=== PATIENT | female | born 1970 | race Caucasian/White ===

== ENCOUNTER → 2016-06-30 | Outpatient (CLI) | payer BC, OTHER ==
--- NOTE | 2016-06-30 15:23 | CT ---
CT of the abdomen and pelvis with contrast. HISTORY: Incisional hernia TECHNIQUE: Axial CT images were obtained of the abdomen and pelvis following administration of 85 mL of Isovue-370 in the right antecubital fossa without complication. Coronal and sagittal reconstruct ions obtained. FINDINGS: The lung bases are clear, no pleural effusion. Mild dependent atelectasis. There is no evident irena meter nodule within the right breast, comparable to a mammogram dated 01/08/2016. The liver demonstrates focal fatty infiltration near the gallbladder fossa and falciform ligament. T here is a tiny cyst also noted. The spleen, adrenal glands, and pancreas appear normal. Cholelithias is without evidence of cholecystitis. No bulky retroperitoneal lymphadenopathy or abdominal ascites. The kidneys enhance and function symmetrically without evidence of obstructive uropathy. The large and small bowel are normal in caliber without evidence of obstruction. No focal pericoloni c inflammation or stranding. Appendectomy. No bulky pelvic lymphadenopathy or free pelvic fluid. The urinary bladder appears normal. Mesh is noted along the anterior wall. Just above the mesh there is a tiny midline fat-containing supraumbilical hernia. No suspicious osseous abnormalities identified. IMPRESSION: 1. Cholelithiasis without evidence of cholecystitis. 2. Mesh is noted from previous hernia repair, however just superior to the mesh there is a tiny fat- containing midline hernia.
--- NOTE | 2016-07-01 14:34 | CR ---
EXAM DATE: 06/30/16 PATIENT'S AGE: 46 Patient: YI VIKTORIA Facility: [place], [place] Site . Site : [id number] Study: XRay Extremity foot [id number] 4:59:14 PM Ordering Physician: Citlaly Fall Final Report: Indication: Fall with pain Technique: Three views left foot Comparison: None Findings: Bones: Alignment is normal. No fractures or bone lesions. Small posterior and inferior calcaneal enthesophytes noted. Joint spaces: Unremarkable. Soft tissues: Unremarkable. Impression: No acute abnormality. Dictated by Yi Maurer MD @ Jun 30 2016 11:14PM (Electronic Signature) Report Signed by Proxy and Original Signed Document filed in the Medical Record. QUE
== END | disposition home or self-care (01) ==
LOC: MW.DI 12:17
PROVIDERS: ATTEND Surgery
DX: K43.2 Incisional hernia without obstruction or gangrene (principal); E55.9 Vitamin D deficiency, unspecified; M79.672 Pain in left foot; K80.20 Calculus of gallbladder without cholecystitis without obstruction; I10 Essential (primary) hypertension; E11.9 Type 2 diabetes mellitus without complications
CPT/HCPCS: 36415; 73630; 74177; 80053; 82150; 82652; 83036; Q9967

== ENCOUNTER → 2016-07-09 | Outpatient (CLI) | payer BC, OTHER | LOC: MW.MNT 15:48 | PROVIDERS: ATTEND Internal Medicine | DX: E11.9 Type 2 diabetes mellitus without complications (principal); Z71.3 Dietary counseling and surveillance | CPT/HCPCS: 97803 ==

== ENCOUNTER → 2016-08-11 | Outpatient (CLI) | payer BC, OTHER ==
--- NOTE | 2016-08-11 16:24 | CR ---
EXAMINATION: Right total HISTORY: Fracture COMPARISON: 07/09/2016 TECHNIQUE: 2 views FINDINGS/IMPRESSION: There is a stable nondisplaced intra-articular fracture noted along the radial and palmar aspect of the distal first phalanx. The remaining osseous structures and joint spaces lizzette ear intact.
== END ==
LOC: MW.CHORTHO 07:09
PROVIDERS: ATTEND Orthopaedic Surgery
DX: S62.521A Displaced fracture of distal phalanx of right thumb, initial encounter for closed fracture (principal); S62.524A Nondisplaced fracture of distal phalanx of right thumb, initial encounter for closed fracture
CPT/HCPCS: 73140-26-F5; 73140-F5; 97802

== ENCOUNTER 2016-09-09 06:52 | Day surgery (SDC) | payer BC, OTHER ==
[2016-09-09] MEDS ORDERED: Bupivacaine 0.25%/EPINEPHrine 1:200,000 10 ML SDV ONE (07:12)
[2016-09-09] MEDS ORDERED: Propofol 200 MG/20 ML SDV ONE (07:19)
[2016-09-09] MEDS ORDERED: fentaNYL 100 MCG/2 ML SDV ONE ×2 (07:19→09:29)
[2016-09-09] MEDS ORDERED: Midazolam 1 MG/ML 2 ML SDV ONE (07:19)
--- NOTE | 2016-09-09 07:33 | PCM.PREANE ---
Preanesthetic Assessment - Anesthesia/Transfusion/Family Hx Anesthesia History: Prior Anesthesia Without Reaction Type of Anesthesia Reaction: Anesthesia Awareness (woke up twice during hysterectomy) Family History of Anesthesia Reaction: No Transfusion History: No Prior Transfusion(s) Intubation History: Unknown - Review of Systems General: No Symptoms Pulmonary: No Symptoms Cardiovascular: No Symptoms Gastrointestinal: No symptoms Neurological: No Symptoms Other: Reports: None - Physical Assessment Height: 1.63 m Weight: 115.666 kg ASA Class: 3 Mental Status: Alert & Oriented x3 Airway Class: Mallampati = 3 Dentition: Reports: Normal Dentition Thyro-Mental Finger Breadths: 2 Mouth Opening Finger Breadths: 2 ROM/Head Extension: Limited/Partial Lungs: Clear to auscultation, Normal respiratory effort Cardiovascular: Regular Rate, Regular Rhythm - Allergies Allergies/Adverse Reactions: Allergies Allergy/AdvReac Type Severity Reaction Status Date / Time erythromycin base Allergy Vomiting Verified 07/17/15 23:30 Penicillins Allergy Difficulty Verified 07/17/15 23:30 Breathing - Blood Blood Available: No - Anesthesia Plan Pre-Op Medication Ordered: None - Acknowledgements Anesthesia Type Planned: MAC Pt an Appropriate Candidate for the Planned Anesthesia: Yes Alternatives and Risks of Anesthesia Discussed w Pt/Guardian: Yes Pt/Guardian Understands and Agrees with Anesthesia Plan: Yes PreAnesthesia Questionnaire HEENT History: Reports: Allergic Rhinitis, Other (See Below) Other HEENT History: wears glasses/contacts Cardiovascular History: Reports: High Cholesterol, Hypertension Respiratory History: Reports: Sleep Apnea Other Respiratory History: uses CPAP, SOB on exertion Gastrointestinal History: Reports: GERD Genitourinary History: Reports: Renal Calculus Musculoskeletal History: Reports: Back Pain, Chronic, Fracture, Osteoarthritis Other Musculoskeletal History: fx thumb Neurological History: Reports: None Psychiatric History: Reports: Anxiety, Depression Endocrine/Metabolic History: Reports: Diabetes, Type II, Hypothyroidism, Obesity /BMI 30+ Oncologic (Cancer) History: Reports: Other (See Below) Other Oncologic History: "skin cancer" Dermatologic History: Reports: None - Past Surgical History Head Surgeries/Procedures: Reports: None HEENT Surgical History: Reports: Tonsillectomy GI Surgical History: Reports: Appendectomy, Hernia, Abdominal Other GI Surgeries/Procedures: hernia repair x6 Female Surgical History: Reports: Hysterectomy, Tubal Ligation Endocrine Surgical History: Reports: Thyroidectomy Dermatological Surgical History: Reports: Skin Biopsy - SUBSTANCE USE Smoking Status *Q: Current Every Day Smoker Tobacco Use Within Last Twelve Months: Cigarettes Recreational Drug Use History: No - HOME MEDS Home Medications: Home Meds metFORMIN HCl [Metformin HCl ER] 1 tab PO BID 07/17/15 [History] Albuterol Sulfate [Proair Hfa] 2 puff INH ASDIRECTED PRN 09/04/16 [History] Alendronate Sodium [Fosamax] 70 mg PO WEEKLY 09/04/16 [History] Dulaglutide [Trulicity] 1.5 mg SUBCUT WEEKLY 09/04/16 [History] Escitalopram Oxalate 10 mg PO DAILY 09/04/16 [History] Fluticasone/Salmeterol [Advair 250-50 Diskus] 1 puff INH BID 09/04/16 [History] Insulin Aspart [NovoLOG] 1 injection SUBCUT ASDIRECTED 09/04/16 [History] Insulin Glargine,Hum.Rec.Anlog [Toujeo Solostar] 60 units SUBCUT BEDTIME [History] Levothyroxine Sodium [Synthroid] 75 mg PO DAILY 09/04/16 [History] Meloxicam 7.5 mg PO DAILY 09/04/16 [History] Omeprazole 20 mg PO DAILY 09/04/16 [History] Pregabalin [Lyrica] 100 mg PO TID 09/04/16 [History] Valsartan 40 mg PO DAILY 09/04/16 [History] atorvaSTATin Calcium [Atorvastatin Calcium] 20 mg PO DAILY 09/04/16 [History] - CURRENT (IN HOUSE) MEDS Current Meds: Current Medications Hydrocodone Bitart/Acetaminophen (Sublette 325-5 Mg) 1 tab PO Q4H PRN PRN Reason: Pain Bupivacaine HCl/Epinephrine Bitart (Marcaine 0.25%/Epinephrine 1:200,000) 10 ml INJECT ONETIME ONE Stop: 09/09/16 08:01 Clindamycin Phosphate 600 mg/ (Premix) 50 mls @ 150 mls/hr IV ONETIME ONE Stop: 09/09/16 08:19 Lactated Ringer's (Ringers, Lactated) 1,000 mls @ 125 mls/hr IV ASDIRECTED SABA Discontinued Medications Bupivacaine HCl/Epinephrine Bitart (Marcaine 0.25%/Epinephrine 1:200,000) Confirm Administered Dose 10 ml .ROUTE .STK-MED ONE Stop: 09/09/16 07:13 Fentanyl (Sublimaze) Confirm Administered Dose 100 mcg .ROUTE .STK-MED ONE Stop: 09/09/16 07:20 Midazolam HCl (Versed 1 Mg/Ml) Confirm Administered Dose 2 mg .ROUTE .STK-MED ONE Stop: 09/09/16 07:20 Propofol (Diprivan 20 Ml) Confirm Administered Dose 200 mg .ROUTE .STK-MED ONE Stop: 09/09/16 07:20
[2016-09-09] MEDS ORDERED: Clindamycin Phosphate in D5W 600 MG in Premix Bag 1 BAG IV ONE ×2 (08:00)
[2016-09-09] MEDS ORDERED: Lactated Ringers 1,000 ML IV SCH (08:00)
[2016-09-09] MEDS ORDERED: Bupivacaine 0.25%/EPINEPHrine 1:200,000 10 ML SDV INJECT ONE (08:00)
[2016-09-09] MEDS ORDERED: Acetaminophen/HYDROcodone 325-5 MG Tab PO PRN (08:00)
--- NOTE | 2016-09-09 08:50 | PCM.OPNOTE ---
- General Post-Op/Procedure Note Date of Surgery/Procedure: 09/09/16 Operative Procedure(s): right carpal tunnel release Pre Op Diagnosis: right carpal tunnel syndrome Post-Op Diagnosis: Same Anesthesia Technique: Local, MAC Primary Surgeon: Padmini Zarco [employer]: Yi Garcia Complications: None Condition: Good
[2016-09-09] MEDS: fentaNYL 100 MCG/2 ML SDV IVPUSH PRN ×2 (09:30→09:38)
[2016-09-09 14:34] VITALS: BP 133/79
--- NOTE | 2016-09-09 18:26 | OR ---
SURGEON: HEATHER FONG MD DATE OF PROCEDURE: 09/09/2016 PREOPERATIVE DIAGNOSIS: Right carpal tunnel syndrome. POSTOPERATIVE DIAGNOSIS: Right carpal tunnel syndrome. PROCEDURE: Right carpal tunnel release. INDICATIONS: Ms. Garcia is a 46-year-old female seen today for right carpal tunnel syndrome. Risks and benefits of release were discussed with her and she was in agreement to proceed. Risks were including, but not limited to, bleeding, infection, damage to underlying or overlying structures, possible need for future interventions and possible scarring. PROCEDURE IN DETAIL: After informed consent was obtained and placed on the chart, the patient was brought to the operating theater and laid in supine. After adequate local MAC anesthetic was obtained, the area was prepped and draped and a time-out was completed to confirm side and site. Once adequately prepped and draped, the arm was anesthetized with local anesthetic and the arm was exsanguinated and the tourniquet was insufflated to 200 mmHg. Attention was then paid to dissection over the transverse carpal ligament using a 15 blade through the skin and subcutaneous tissues and then once the ligament was breached, dissection distally and proximally under direct visualization using a Littler scissors and tendon retraction. Once adequately released, meticulous hemostasis was ensured and the area copiously irrigated. The skin was then closed using a 5-0 nylon stitch in a horizontal mattress fashion. Once adequately closed, the wound was dressed with Xeroform, fluffs, and a Kerlix gauze dressing and a 2-inch COLLEEN wrap. The patient tolerated this and all counts of needles were correct at the end the case. FOLLOWUP INSTRUCTIONS: The patient will see us in 2 weeks and was given a prescription for pain control. She will call sooner with any problems, questions, or concerns. HEGGTZAN / NOMI /[id number]
== END 2016-09-09 10:15 | disposition home or self-care (01) ==
LOC: MW.SDS 06:52
PROVIDERS: ATTEND Plastic Surgery
PROC: 01N50ZZ Release Median Nerve, Open Approach (ICD-10-PCS; principal; 2016-09-09)
DX: G56.01 Carpal tunnel syndrome, right upper limb (principal); F41.9 Anxiety disorder, unspecified; M51.36 Other intervertebral disc degeneration, lumbar region; F32.9 Major depressive disorder, single episode, unspecified; E11.42 Type 2 diabetes mellitus with diabetic polyneuropathy; E78.5 Hyperlipidemia, unspecified; K21.9 Gastro-esophageal reflux disease without esophagitis; I10 Essential (primary) hypertension; E67.3 Hypervitaminosis D; M19.90 Unspecified osteoarthritis, unspecified site; M17.11 Unilateral primary osteoarthritis, right knee; G47.30 Sleep apnea, unspecified; E55.9 Vitamin D deficiency, unspecified; E89.0 Postprocedural hypothyroidism; F17.210 Nicotine dependence, cigarettes, uncomplicated; E78.00 Pure hypercholesterolemia, unspecified; E66.9 Obesity, unspecified; Z85.828 Personal history of other malignant neoplasm of skin; Z87.442 Personal history of urinary calculi; Z88.0 Allergy status to penicillin; Z88.5 Allergy status to narcotic agent; Z79.4 Long term (current) use of insulin; Z79.84 Long term (current) use of oral hypoglycemic drugs; Z79.899 Other long term (current) drug therapy; Z98.51 Tubal ligation status; Z90.49 Acquired absence of other specified parts of digestive tract; Z90.710 Acquired absence of both cervix and uterus; Z90.89 Acquired absence of other organs; Z98.890 Other specified postprocedural states; Z68.41 Body mass index [BMI] 40.0-44.9, adult; Z99.89 Dependence on other enabling machines and devices
CPT/HCPCS: 64721; 82962; A9270; J2250; J3010; J7120; 01810; J2704

== ENCOUNTER 2016-12-15 10:34 | Observation (INO) | payer OTHER ==
[2016-12-15] MEDS ORDERED: Ondansetron 4 MG/2 ML SDV IVPUSH ONE (11:01)
[2016-12-15] MEDS ORDERED: Sodium Chloride 0.9% 1,000 ML IV ONE (11:01)
[2016-12-15] MEDS ORDERED: fentaNYL 100 MCG/2 ML SDV IVPUSH ONE (11:01)
--- NOTE | 2016-12-15 11:07 | EDM.PDOC ---
<Esteban Prieto - Last Filed: 12/15/16 13:30> ED HPI GENERAL MEDICAL PROBLEM - General Chief Complaint: Abdominal Pain Stated Complaint: GALLBLADDER Time Seen by Provider: 12/15/16 11:00 Source of Information: Reports: Patient. Denies: RN Notes Reviewed History Limitations: Reports: No Limitations - History of Present Illness INITIAL COMMENTS - FREE TEXT/NARRATIVE: History of present illness: 46-year-old female comes in complaining of right upper quadrant pain. Patient has known gallstones and subsequent gallbladder pain has been evaluated by Dr. Olivo with planned follow-up but now indicates that the pain is intractable as well as repeated nausea and vomiting of bilious material. Review of systems: As per history of present illness and below otherwise all systems reviewed and negative. Past medical history: As per history of present illness and as reviewed below otherwise noncontributory. Surgical history: As per history of present illness and as reviewed below otherwise noncontributory. Social history: No reported history of drug or alcohol abuse. Family history: As per history of present illness and as reviewed below otherwise noncontributory. Physical exam: HEENT: Atraumatic, normocephalic, pupils reactive, negative for conjunctival pallor or scleral icterus, mucous membranes moist, throat clear, neck supple, nontender, trachea midline. Lungs: Clear to auscultation, breath sounds equal bilaterally, chest nontender. Heart: S1S2, regular, negative for clicks, rubs, or JVD. Abdomen: Obese protuberant exquisitely tender abdomen most specifically in the right upper quadrant but radiating across the entire upper region. Negative for masses or hepatosplenomegaly. Negative for costovertebral tenderness. Pelvis: Stable nontender. Genitourinary: Deferred. Rectal: Deferred. Extremities: Atraumatic, negative for cords or calf pain. Neurovascular unremarkable. Neuro: Awake, alert, oriented. Cranial nerves II through XII unremarkable. Cerebellum unremarkable. Motor and sensory unremarkable throughout. Exam nonfocal. Dr. Jewell consultanted in regards to this patient who is known to the surgical staff. Dr. Martinez indicated she would come in and evaluate patient but desired medicine to also follow secondary to her diabetes. Spoke with Dr. Dennis about admitting patient and referred any further questions to Dr. Jewell. Diagnostics: [CBC, CMP, amylase, lipase, ultrasound of the gallbladder] Therapeutics: [] Impression: [Abdominal pain] Plan: [Admit to OBS to medicine with consult by surgery] Definitive disposition and diagnosis as appropriate pending reevaluation and review of above. Right Middle Abdomen Pain Score (Numeric/FACES): 7 - Related Data Allergies Allergy/AdvReac Type Severity Reaction Status Date / Time erythromycin base Allergy Vomiting Verified 07/17/15 23:30 Penicillins Allergy Difficulty Verified 07/17/15 23:30 Breathing Home Meds: Home Meds metFORMIN HCl [Metformin HCl ER] 1 tab PO BID 07/17/15 [History] Albuterol Sulfate [Proair Hfa] 2 puff INH ASDIRECTED PRN 09/04/16 [History] Dulaglutide [Trulicity] 1.5 mg SUBCUT WEEKLY 09/04/16 [History] Fluticasone/Salmeterol [Advair 250-50 Diskus] 1 puff INH BID 09/04/16 [History] Insulin Aspart [NovoLOG] 1 injection SUBCUT ASDIRECTED 09/04/16 [History] Levothyroxine Sodium [Synthroid] 75 mg PO DAILY 09/04/16 [History] Omeprazole 20 mg PO DAILY 09/04/16 [History] Valsartan 40 mg PO DAILY 09/04/16 [History] atorvaSTATin Calcium [Atorvastatin Calcium] 20 mg PO DAILY 09/04/16 [History] Sucralfate [Carafate] 1 tab PO QID 12/15/16 [History] Past Medical History HEENT History: Reports: Allergic Rhinitis, Other (See Below) Other HEENT History: wears glasses/contacts Cardiovascular History: Reports: High Cholesterol, Hypertension Respiratory History: Reports: Sleep Apnea Other Respiratory History: uses CPAP, SOB on exertion Gastrointestinal History: Reports: GERD Genitourinary History: Reports: Renal Calculus Musculoskeletal History: Reports: Back Pain, Chronic, Fracture, Osteoarthritis Other Musculoskeletal History: fx thumb Neurological History: Reports: None Psychiatric History: Reports: Anxiety, Depression Endocrine/Metabolic History: Reports: Diabetes, Type II, Hypothyroidism, Obesity /BMI 30+ Oncologic (Cancer) History: Reports: Other (See Below) Other Oncologic History: "skin cancer" Dermatologic History: Reports: None - Past Surgical History Head Surgeries/Procedures: Reports: None HEENT Surgical History: Reports: Tonsillectomy GI Surgical History: Reports: Appendectomy, Hernia, Abdominal Other GI Surgeries/Procedures: hernia repair x6 Female Surgical History: Reports: Hysterectomy, Tubal Ligation Endocrine Surgical History: Reports: Thyroidectomy Dermatological Surgical History: Reports: Skin Biopsy Social & Family History - Tobacco Use Smoking Status *Q: Current Every Day Smoker Years of Tobacco use: 30 Packs/Tins Daily: 1 - Recreational Drug Use Recreational Drug Use: No ED ROS GENERAL - Review of Systems Review Of Systems: See Below (History of present illness) ED EXAM, GI/ABD - Physical Exam Exam: See Below (See history of present illness) Course - Vital Signs Last Recorded V/S: Last Vital Signs Temp 36.4 C 12/15/16 14:50 Pulse 72 12/15/16 14:50 Resp 18 12/15/16 14:50 BP 105/62 12/15/16 14:50 Pulse Ox 92 L 12/15/16 14:50 - Orders/Labs/Meds Orders: Active Orders 24 hr Category Date Time Status Patient Status [ADT] Stat ADT 12/15/16 13:29 Active Notify Provider Consults [RC] ASDIRECTED Care 12/15/16 12:53 Active Consult to Physician [CONS] Stat Cons 12/15/16 12:52 Active Medication Orders Albuterol (Ventolin Hfa) 0 gm INH Q6H PRN PRN Reason: Shortness of Breath Enoxaparin Sodium (Lovenox) 40 mg SUBCUT DAILY SABA Hydromorphone HCl (Dilaudid) 1 mg IVPUSH Q2H PRN PRN Reason: Pain Last Admin: 12/15/16 15:10 Dose: 1 mg Levofloxacin/Dextrose 750 mg/ (Premix) 150 mls @ 100 mls/hr IV Q24H SABA Metronidazole 500 mg/ Premix 100 mls @ 100 mls/hr IV QID SABA Last Admin: 12/15/16 14:41 Dose: 100 mls/hr Sodium Chloride (Normal Saline) 1,000 mls @ 125 mls/hr IV ASDIRECTED SABA Last Admin: 12/15/16 14:41 Dose: 125 mls/hr Pantoprazole Sodium 40 mg/ (Sodium Chloride) 10 mls @ 300 mls/hr IVPUSH Q24H SABA Last Admin: 12/15/16 14:59 Dose: 300 mls/hr Insulin Aspart (Novolog) 0 unit SUBCUT Q6H SABA PRN Reason: Protocol Ondansetron HCl (Zofran) 4 mg IVPUSH Q4H PRN PRN Reason: Nausea Last Admin: 12/15/16 15:09 Dose: 4 mg Fluticasone/Salmeterol (Advair Diskus 250-50) 1 puff INH BID SABA Labs: Laboratory Tests 12/15/16 12/15/16 12/15/16 Range/Units 11:24 11:24 11:24 WBC 16.22 H (4.0-11.0) K/uL RBC 4.77 (4.30-5.90) M/uL Hgb 15.0 (12.0-16.0) g/dL Hct 43.8 (36.0-46.0) % MCV 91.8 (80.0-98.0) fL MCH 31.4 (27.0-32.0) pg MCHC 34.2 (31.0-37.0) g/dL RDW Std Deviation 47.0 (28.0-62.0) fl RDW Coeff of Sheryl 14 (11.0-15.0) % Plt Count 252 (150-400) K/uL MPV 10.40 (7.40-12.00) fL Neut % (Auto) 67.0 (48.0-80.0) % Lymph % (Auto) 25.3 (16.0-40.0) % [place] % (Auto) 6.7 (0.0-15.0) % Eos % (Auto) 0.8 (0.0-7.0) % Baso % (Auto) 0.2 (0.0-1.5) % Neut # (Auto) 10.9 H (1.4-5.7) K/uL Lymph # (Auto) 4.1 H (0.6-2.4) K/uL [place] # (Auto) 1.1 H (0.0-0.8) K/uL Eos # (Auto) 0.1 (0.0-0.7) K/uL Baso # (Auto) 0.0 (0.0-0.1) K/uL Nucleated RBC % 0.0 /100WBC Nucleated RBCs # 0 K/uL Sodium 137 (136-146) mmol/L Potassium 4.0 (3.5-5.1) mmol/L Chloride 102 (98-110) mmol/L Carbon Dioxide 24 (21-31) mmol/L BUN 12 (6.0-23.0) mg/dL Creatinine 0.8 (0.6-1.5) mg/dL Est Cr Clr Drug Dosing 74.26 mL/min Estimated GFR (MDRD) > 60.0 ml/min Glucose 117 H (60-110) mg/dL Calcium 10.0 (8.8-10.8) mg/dL Total Bilirubin 0.4 (0.1-1.5) mg/dL AST 28 (5-40) IU/L ALT 40 (8-54) IU/L Alkaline Phosphatase 129 (40-150) Total Protein 7.9 (6.0-8.0) g/dL Albumin 3.7 (3.5-5.0) g/dL Globulin 4.2 H (2.0-3.5) g/dL Albumin/Globulin Ratio 0.9 L (1.3-2.8) Amylase 28 (10-90) U/L Lipase 21 (7-80) U/L Meds: Medications Generic Name Dose Route Start Last Admin Trade Name Freq PRN Reason Stop Dose Admin Albuterol 0 gm 12/15/16 13:57 Ventolin Hfa INH Q6H PRN Shortness of Breath Enoxaparin Sodium 40 mg 12/16/16 09:00 Lovenox SUBCUT DAILY SABA Hydromorphone HCl 1 mg 12/15/16 14:55 12/15/16 15:10 Dilaudid IVPUSH 1 mg Q2H PRN Administration Pain Levofloxacin/Dextrose 750 mg/ 150 mls @ 100 mls/hr 12/15/16 15:00 Premix IV Q24H SABA Metronidazole 500 mg/ Premix 100 mls @ 100 mls/hr 12/15/16 14:00 12/15/16 14: 41 IV 100 mls/hr QID SABA Administration Sodium Chloride 1,000 mls @ 125 mls/hr 12/15/16 14:00 12/15/16 14:41 Normal Saline IV 125 mls/hr ASDIRECTED SABA Administration Pantoprazole Sodium 40 mg/ 10 mls @ 300 mls/hr 12/15/16 14:00 12/15/16 14:59 Sodium Chloride IVPUSH 300 mls/hr Q24H SABA Administration Insulin Aspart 0 unit 12/15/16 18:00 Novolog SUBCUT Q6H SABA Protocol Ondansetron HCl 4 mg 12/15/16 13:48 12/15/16 15:09 Zofran IVPUSH 4 mg Q4H PRN Administration Nausea Fluticasone/Salmeterol 1 puff 12/15/16 21:00 Advair Diskus 250-50 INH BID SABA Discontinued Medications Generic Name Dose Route Start Last Admin Trade Name Freq PRN Reason Stop Dose Admin Fentanyl 50 mcg 12/15/16 11:01 12/15/16 11:24 Sublimaze IVPUSH 12/15/16 11:02 50 mcg ONETIME ONE Administration Fentanyl Confirm 12/15/16 11:58 Sublimaze Administered 12/15/16 11:59 Dose 100 mcg .ROUTE .STK-MED ONE Sodium Chloride 1,000 mls @ 999 mls/hr 12/15/16 11:01 12/15/16 11:31 Normal Saline IV 12/15/16 12:01 999 mls/hr STAT ONE Administration Ondansetron HCl 8 mg 12/15/16 11:01 12/15/16 11:35 Zofran IVPUSH 12/15/16 11:02 8 mg ONETIME ONE Administration Departure - Departure Time of Disposition: 13:31 Disposition: Refer to Observation Condition: Good Clinical Impression: Biliary colic - Discharge Information <Ayse Wood - Last Filed: 12/15/16 15:25> ED HPI GENERAL MEDICAL PROBLEM - History of Present Illness INITIAL COMMENTS - FREE TEXT/NARRATIVE: Please note that Dr. Jewell was initially consulted and after review of the patient's information she felt the patient should be admitted with her on consult but that medicine she did admit Dr. Dennis agreed to do so.
[2016-12-15] MEDS ORDERED: fentaNYL 100 MCG/2 ML SDV IVPUSH STA (11:55)
[2016-12-15] MEDS ORDERED: fentaNYL 100 MCG/2 ML SDV ONE (11:58)
[2016-12-15 11:59] LABS: CHLORIDE,CL 102 mmol/L (98-110); SODIUM,NA 137 mmol/L (136-146)
--- NOTE | 2016-12-15 12:41 | US ---
EXAMINATION: Right upper quadrant ultrasound HISTORY: Gallbladder disease COMPARISON: CT dated 12/04/2016 TECHNIQUE: Grayscale and color Doppler images obtained of the right upper quadrant. FINDINGS: The visualized pancreas is normal. The liver is moderately increased in generalized echotex ture without a focal hepatic mass. Numerous mobile gallstones noted within the gallbladder. No gallbl adder wall thickening. No notable pericholecystic fluid. Sonographic Wilson sign is reported positive . The common bile duct measures 6 mm. The right kidney measures 12.2 cm [id number] without evidenc e of hydronephrosis. IMPRESSION: 1. Cholelithiasis with a positive sonographic Wilson's sign without secondary signs of cholecystitis. Correlate clinically. 2. Moderate fatty infiltration of the liver.
[2016-12-15] MEDS ORDERED: Albuterol 8 GM Inhaler INH PRN (13:57)
--- NOTE | 2016-12-15 13:59 | PCM.HP ---
H&P History of Present Illness - General Date of Service: 12/15/16 Source of Information: Patient History Limitations: Reports: No Limitations - History of Present Illness Initial Comments - Free Text/Narative: This 46 year old female with pmh of DM type 2, tobacco use, obesity, multiple abdominal surgeries presented to the ED today with concerns of intractable N/V and RUQ pain. She reports the beginning of November starting have this N/V and "bubbling up in her throat." The RUQ pain started a couple days later, but wasn' t severe. She was seen in the clinic on November 13 with Zabrina Valdes for this, given Carafate and scheduled for US of RUQ. She reports having RUQ pain, that is dull and slowly intensifies. She denies radiation, no chest pain or palpitations.She reports subjective chills at home, but unknown if she had any fevers. No black or bloody BMS, no diarrhea. She has a BM normally every week. She has been followed by Dr. Cramer for cholelithiasis. SHe has extensive history of abdominal surgeries starting with REINALDO in her 20s, She reports after that she had incisional hernia repairs and had a total of 6 major abdominal surgeries in 5-6 months with mesh placement. She then had a ruptured appendix which caused extensive infection with her mesh and they had to remove it. In the ED leukocytosis noted 16,220, glucose 117, AST 28, ALT 40, Alk phos 129, and bilirubin 0.4. US of RUQ revealed cholelithiases with a positive marquez's sign without secondary signs of cholecystitis, moderate fatty infiltration of the liver. She will be admitted for observation for RUQ pain, intractable N/V. I spoke with Dr. Jewell who is on-call for general surgery. She has spoken with ED prior to admission and spoke with Dr. Cramer regarding this patient. She is very complex in nature due to comorbidities including obesity and multiple abdominal surgeries. She will follow along case. PCP. Dr. Jacinto. Right Middle Abdomen Pain Score (Numeric/FACES): 7 - Related Data Allergies/Adverse Reactions: Allergies Allergy/AdvReac Type Severity Reaction Status Date / Time erythromycin base Allergy Vomiting Verified 07/17/15 23:30 Penicillins Allergy Difficulty Verified 07/17/15 23:30 Breathing Home Medications: Home Meds metFORMIN HCl [Metformin HCl ER] 1 tab PO BID 07/17/15 [History] Albuterol Sulfate [Proair Hfa] 2 puff INH ASDIRECTED PRN 09/04/16 [History] Dulaglutide [Trulicity] 1.5 mg SUBCUT WEEKLY 09/04/16 [History] Fluticasone/Salmeterol [Advair 250-50 Diskus] 1 puff INH BID 09/04/16 [History] Insulin Aspart [NovoLOG] 1 injection SUBCUT ASDIRECTED 09/04/16 [History] Levothyroxine Sodium [Synthroid] 75 mg PO DAILY 09/04/16 [History] Omeprazole 20 mg PO DAILY 09/04/16 [History] Valsartan 40 mg PO DAILY 09/04/16 [History] atorvaSTATin Calcium [Atorvastatin Calcium] 20 mg PO DAILY 09/04/16 [History] Sucralfate [Carafate] 1 tab PO QID 12/15/16 [History] Past Medical History HEENT History: Reports: Allergic Rhinitis, Other (See Below) Other HEENT History: wears glasses/contacts Cardiovascular History: Reports: High Cholesterol, Hypertension. Denies: Afib, Blood Clots/VTE/DVT, Heart Failure, Stents Respiratory History: Reports: Sleep Apnea. Denies: Asthma, COPD Other Respiratory History: uses CPAP, SOB on exertion Gastrointestinal History: Reports: Chronic Constipation, GERD. 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 Denies: CVA, Migraines, TIA Psychiatric History: Reports: Anxiety, Depression Endocrine/Metabolic History: Reports: Diabetes, Type II, Hypothyroidism, Obesity /BMI 30+ Oncologic (Cancer) History: Reports: Other (See Below) Other Oncologic History: "skin cancer" Dermatologic History: Reports: None - Infectious Disease History Infectious Disease History: Reports: Chicken Pox - Past Surgical History Head Surgeries/Procedures: Reports: None HEENT Surgical History: Reports: Tonsillectomy GI Surgical History: Reports: Appendectomy (ruptured, mesh was removed and replaced), Hernia, Abdominal (x6 with mesh) Other GI Surgeries/Procedures: hernia repair x6 Female Surgical History: Reports: Hysterectomy, Tubal Ligation Endocrine Surgical History: Reports: Thyroidectomy (1 yr ago.) Dermatological Surgical History: Reports: Skin Biopsy Social & Family History - Family History Family Medical History: Noncontributory - Tobacco Use Smoking Status *Q: Current Every Day Smoker Years of Tobacco use: 30 Packs/Tins Daily: 0.5 Second Hand Smoke Exposure: No - Caffeine Use Caffeine Use: Reports: Coffee - Alcohol Use Alcohol Use Frequency: Socially - Recreational Drug Use Recreational Drug Use: No - Living Situation & Occupation Living situation: Reports: Occupation: Employed H&P Review of Systems - Review of Systems: Review Of Systems: See Below General: Reports: Chills, Fatigue (unable to sleep well for the last couple weeks due to heartburn and nausea). Denies: Fever HEENT: Reports: No Symptoms. Denies: Headaches, Sinus Congestion Pulmonary: Reports: No Symptoms. Denies: Shortness of Breath, Wheezing, Cough, Sputum Cardiovascular: Reports: No Symptoms. Denies: Chest Pain, Palpitations, Edema Gastrointestinal: Reports: Abdominal Pain (RUQ no radiation), Flatus, Nausea, Vomiting. Denies: Black Stool, Bloody Stool, Hematemesis, Melena Genitourinary: Reports: No Symptoms. Denies: Dysuria, Frequency, Burning, Pain , Flank Pain Musculoskeletal: Reports: No Symptoms. Denies: Neck Pain Skin: Reports: No Symptoms Psychiatric: Reports: Anxiety Neurological: Reports: No Symptoms Hematologic/Lymphatic: Reports: No Symptoms Immunologic: Reports: No Symptoms Exam - Exam Exam: See Below - Vital Signs Vital Signs: Last Vital Signs Temp 97.2 F 12/15/16 10:49 Pulse 78 12/15/16 10:49 Resp 20 12/15/16 10:49 BP 168/88 H 12/15/16 10:49 Pulse Ox 94 L 12/15/16 10:49 Weight: 114 kg - Exam General: Alert, Oriented, Cooperative, Other HEENT: Conjunctiva Clear, Mucosa Moist & [place], Pupils Reactive Neck: Supple, Trachea Midline, Other (obese neck) Lungs: Clear to Auscultation, Normal Respiratory Effort Cardiovascular: Regular Rate, Regular Rhythm, Normal S1, Normal S2. No: Irregular Rhythm, Systolic Murmur GI/Abdominal Exam: Normal Bowel Sounds, Soft, No Distention, Tender (RUQ and epigastric region), Other (obese abdomen with multiple scars from past surgeries ) Extremities: Normal Inspection, Normal Range of Motion, Non-Tender, No Pedal Edema, Normal Capillary Refill Neuro Extensive - Mental Status: Alert, Oriented x3, Normal Mood/Affect, Normal Cognition Neuro Extensive - Motor, Sensory, Reflexes: CN II-XII Intact, Normal Gait, Normal Reflexes Psychiatric: Alert, Normal Affect, Normal Mood - Patient Data Result Diagrams: 12/15/16 11:24 12/15/16 11:24 *Q Meaningful Use (ADM) - VTE *Q VTE Criteria *Q: - VTE Risk Assess *Q Each Risk Factor Represents 1 Point: Age 41 - 59 years Total Score 1 Point Risk Factors: 1 Each Risk Factor Represents 2 Points: Morbid Obesity (BMI Greater than 40) Total Score 2 Point Risk Factors: 2 Each Risk Factor Represents 3 Points: None Total Score 3 Point Risk Factors: 0 Each Risk Factor Represents 5 Points: None Total Score 5 Point Risk Factors: 0 Venous Thromboembolism Risk Factor Score *Q: 3 - Stroke *Q Stroke Criteria *Q: - AMI *Q AMI Criteria *Q: - Problem List (1) Intractable nausea and vomiting SNOMED Code(s): 689665531, 711881576 ICD Code: R11.2 - NAUSEA WITH VOMITING, UNSPECIFIED Status: Acute Current Visit: Yes Qualifiers: Vomiting type: unspecified Qualified Code(s): R11.2 - Nausea with vomiting , unspecified (2) Biliary colic SNOMED Code(s): 04910143 ICD Code: K80.50 - CALCULUS OF BILE DUCT W/O CHOLANGITIS OR CHOLECYST W/O OBST Status: Acute Current Visit: Yes (3) Dehydration SNOMED Code(s): 19752166 ICD Code: E86.0 - DEHYDRATION Status: Acute Current Visit: Yes (4) Cholelithiasis SNOMED Code(s): 519647438 ICD Code: K80.20 - CALCULUS OF GALLBLADDER W/O CHOLECYSTITIS W/O OBSTRUCTION Status: Acute Current Visit: Yes Qualifiers: Cholelithiasis location: gallbladder Cholecystitis presence: without cholecystitis Biliary obstruction: without biliary obstruction Qualified Code(s): K80.20 - Calculus of gallbladder without cholecystitis without obstruction (5) Obesity, morbid, BMI 40.0-49.9 SNOMED Code(s): 021997538, 741624787 ICD Code: E66.01 - MORBID (SEVERE) OBESITY DUE TO EXCESS CALORIES Status: Chronic Current Visit: Yes (6) HTN (hypertension) SNOMED Code(s): 57852169 ICD Code: I10 - ESSENTIAL (PRIMARY) HYPERTENSION Status: Chronic Current Visit: Yes Qualifiers: Hypertension type: essential hypertension Qualified Code(s): I10 - Essential (primary) hypertension (7) DM type 2 (diabetes mellitus, type 2) SNOMED Code(s): 01968384 ICD Code: E11.9 - TYPE 2 DIABETES MELLITUS WITHOUT COMPLICATIONS Status: Chronic Current Visit: Yes Qualifiers: 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 complication status: with unspecified complications 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 head greenskeeper insulin use: with head greenskeeper use Qualified Code(s) : E11.8 - Type 2 diabetes mellitus with unspecified complications; 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 (8) Hx of thyroidectomy SNOMED Code(s): 098995849, 052760702 ICD Code: E89.0 - POSTPROCEDURAL HYPOTHYROIDISM Status: Chronic Current Visit: Yes Problem List Initiated/Reviewed/Updated: Yes Orders Last 24hrs: Active Orders 24 hr Category Date Time Status Blood Glucose Check, Bedside [RC] Q6H Care 12/15/16 13:48 Ordered Intake and Output [RC] QSHIFT Care 12/15/16 13:49 Ordered Oxygen Therapy [RC] PRN Care 12/15/16 13:49 Ordered Up With Assistance [RC] ASDIRECTED Care 12/15/16 13:48 Ordered VTE/DVT Education [RC] PER UNIT ROUTINE Care 12/15/16 13:49 Ordered Vital Signs [RC] Q4H Care 12/15/16 13:49 Ordered Nothing Per Oral Diet [DIET] Diet 12/15/16 Dinner Ordered CBC WITH AUTO DIFF [HEME] AM Lab 12/16/16 05:11 Ordered COMPREHENSIVE METABOLIC PN,CMP [CHEM] AM Lab 12/16/16 05:11 Ordered Albuterol [Proventil HFA] Med 12/15/16 13:57 Ordered 2 puff INH ASDIRECTED PRN Enoxaparin [Lovenox] Med 12/16/16 09:00 Ordered 40 mg SUBCUT DAILY Fluticasone/Salmeterol [Advair Diskus 250-50] Med 12/15/16 21:00 Ordered 1 puff INH BID Insulin Aspart [NovoLOG] Med 12/15/16 18:00 Ordered See Protocol SUBCUT Q6H Levofloxacin/Dextrose 5%-Water [Levaquin in D5W 750 MG/ Med 12/15/16 14:00 Ordered 150 ML] 750 mg Premix Bag 1 bag IV Q24H Ondansetron [Zofran] Med 12/15/16 13:48 Ordered 4 mg IVPUSH Q4H PRN Pantoprazole [ProTONIX IV] 40 mg Med 12/15/16 14:00 Ordered Sodium Chloride 0.9% [Normal Saline] 10 ml IVPUSH Q24H Sodium Chloride 0.9% @ 125 MLS/HR (1000ml) Med 12/15/16 14:00 Ordered Sodium Chloride 0.9% [Normal Saline] 1,000 ml IV ASDIRECTED metroNIDAZOLE/Normal Saline [Flagyl 500 MG in NS 100 ML Med 12/15/16 14:00 Ordered ] 500 mg Premix Bag 1 bag IV QID Resuscitation Status Routine Resus Stat 12/15/16 13:48 Ordered Medication Orders Enoxaparin Sodium (Lovenox) 40 mg SUBCUT DAILY SABA Levofloxacin/Dextrose 750 mg/ (Premix) 150 mls @ 100 mls/hr IV Q24H SABA Metronidazole 500 mg/ Premix 100 mls @ 100 mls/hr IV QID SABA Sodium Chloride (Normal Saline) 1,000 mls @ 125 mls/hr IV ASDIRECTED SABA Insulin Aspart (Novolog) 0 unit SUBCUT Q6H SABA PRN Reason: Protocol Ondansetron HCl (Zofran) 4 mg IVPUSH Q4H PRN PRN Reason: Nausea Assessment/Plan Comment:: This 46 year old female admitted with biliary colic, cholelithiasis and intractable N/V 1. Biliary colic/cholelithiasis: No cholecystitis noted. Dr. Jewell consulted. Will keep NPO, give IVFs, provide analgesia and anti-emetic medications PRN tonight. Monitor, if no improvement may need transfer to facility who is better able to manage complexity of care and removal of gallbladder. 2. DM type 2: Novolog SSI Q6 hrs while NPO, will monitor. 3. HTN: Continue home medications as tolerated. VTE porphylaxis: Lovenox. Dispo: 1-2 days
[2016-12-15] MEDS ORDERED: metroNIDAZOLE/Normal Saline 500 MG in Premix Bag 1 BAG IV SCH (14:00)
[2016-12-15] MEDS: Sodium Chloride 0.9% 1,000 ML IV SCH (14:41)
[2016-12-15] MEDS: Pantoprazole 40 MG in Sodium Chloride 0.9% 10 ML IVPUSH SCH (14:59)
[2016-12-15] MEDS ORDERED: Levofloxacin/Dextrose 5%-Water 750 MG in Premix Bag 1 BAG IV SCH ×2 (15:00→17:00)
[2016-12-15] MEDS: Ondansetron 4 MG/2 ML SDV IVPUSH PRN ×2 (15:09→20:54)
[2016-12-15] MEDS: HYDROmorphone 1 MG/ML Syringe IVPUSH PRN ×4 (15:10→23:43)
--- NOTE | 2016-12-15 17:29 | PCM.CONS ---
H&P History of Present Illness - General Date of Service: 12/15/16 Admit Problem/Dx: Symptomatic cholelithiasis Source of Information: Patient History Limitations: Reports: No Limitations - History of Present Illness Initial Comments - Free Text/Narative: Patient is a 46 year old female who presents with 4 days of RUQ pain, nausea and vomiting. She has a complex surgical history. She had an open REINALDO through a lower midline incision. This was complicated by a surgical dehisence/infection and incisional hernia formation. She had "6" hernia surgeries with mesh to repair this hernia. Her last one was ~17 years ago. She had an open appendectomy in 2008 complicated by a surgical infection which required healing by secondary intention. She has diabetes, smokes, and is morbidly obese. She was evaluated in [place] for possible bariatric surgery, however given her surgical history she was denied a procedure according to her. She developed nausea and vomiting this last month. A work up showed cholelithiasis. She was seen by my partner who discussed the case with my senior art director. he was to meet with her this week to refer her to a larger center for possible open cholecystectomy. This weekend she developed refractory nausea, vomiting and RUQ pain. She has been taking reglan and zofran but was unable to control her symptoms. A work up in the ER showed a leukocytosis of 16K with no left shift. She had normal LFTs. Her US showed cholelithiasis with no evidence of cholecystitis and a normal appearing CBD. She had a positive marquez's sign. She was admitted to medicine. She has been NPO, resuscitated, given IV pain meds and started on broad spectrum antibiotics. She feels much better. She hasnt vomited and no longer feels nauseated. Her pain is now well controlled. She is still passing gas. Her last BM was ~1 week ago which is normal for her. She no longer feels bloated. She denies fever. Right Middle Abdomen Pain Score (Numeric/FACES): 7 - Related Data Allergies/Adverse Reactions: Allergies Allergy/AdvReac Type Severity Reaction Status Date / Time erythromycin base Allergy Vomiting Verified 07/17/15 23:30 Penicillins Allergy Difficulty Verified 07/17/15 23:30 Breathing Home Medications: Home Meds metFORMIN HCl [Metformin HCl ER] 1 tab PO BID 07/17/15 [History] Albuterol Sulfate [Proair Hfa] 2 puff INH ASDIRECTED PRN 09/04/16 [History] Dulaglutide [Trulicity] 1.5 mg SUBCUT WEEKLY 09/04/16 [History] Fluticasone/Salmeterol [Advair 250-50 Diskus] 1 puff INH BID 09/04/16 [History] Insulin Aspart [NovoLOG] 1 injection SUBCUT ASDIRECTED 09/04/16 [History] Levothyroxine Sodium [Synthroid] 75 mg PO DAILY 09/04/16 [History] Omeprazole 20 mg PO DAILY 09/04/16 [History] Valsartan 40 mg PO DAILY 09/04/16 [History] atorvaSTATin Calcium [Atorvastatin Calcium] 20 mg PO DAILY 09/04/16 [History] Sucralfate [Carafate] 1 tab PO QID 12/15/16 [History] Past Medical History HEENT History: Reports: Allergic Rhinitis, Other (See Below) Other HEENT History: wears glasses/contacts Cardiovascular History: Reports: High Cholesterol, Hypertension. Denies: Afib, Blood Clots/VTE/DVT, Heart Failure, Stents Respiratory History: Reports: Sleep Apnea. Denies: Asthma, COPD Other Respiratory History: uses CPAP, SOB on exertion Gastrointestinal History: Reports: Chronic Constipation, GERD. 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 Denies: CVA, Migraines, TIA Psychiatric History: Reports: Anxiety, Depression Endocrine/Metabolic History: Reports: Diabetes, Type II, Hypothyroidism, Obesity /BMI 30+ Oncologic (Cancer) History: Reports: Other (See Below) Other Oncologic History: "skin cancer" Dermatologic History: Reports: None - Infectious Disease History Infectious Disease History: Reports: Chicken Pox - Past Surgical History Head Surgeries/Procedures: Reports: None HEENT Surgical History: Reports: Tonsillectomy GI Surgical History: Reports: Appendectomy (ruptured, mesh was removed and replaced), Hernia, Abdominal (x6 with mesh) Other GI Surgeries/Procedures: hernia repair x6 Female Surgical History: Reports: Hysterectomy, Tubal Ligation Endocrine Surgical History: Reports: Thyroidectomy (1 yr ago.) Dermatological Surgical History: Reports: Skin Biopsy Social & Family History - Family History Family Medical History: Noncontributory - Tobacco Use Smoking Status *Q: Current Every Day Smoker Years of Tobacco use: 30 Packs/Tins Daily: 0.5 Second Hand Smoke Exposure: No - Caffeine Use Caffeine Use: Reports: Coffee - Recreational Drug Use Recreational Drug Use: No - Living Situation & Occupation Living situation: Reports: Occupation: Employed H&P Review of Systems - Review of Systems: Review Of Systems: ROS reveals no pertinent complaints other than HPI. Exam - Exam Exam: See Below - Vital Signs Vital Signs: Last Vital Signs Temp 36.4 C 12/15/16 14:50 Pulse 72 12/15/16 14:50 Resp 18 12/15/16 14:50 BP 105/62 12/15/16 14:50 Pulse Ox 92 L 12/15/16 15:52 Weight: 114 kg - Exam General: Alert, Oriented, Cooperative HEENT: Conjunctiva Clear Neck: Supple, Trachea Midline Lungs: Clear to Auscultation, Normal Respiratory Effort Cardiovascular: Regular Rate, Regular Rhythm GI/Abdominal Exam: Soft, Non-Tender, No Distention, Other (well healed midline and RLQ incisions ). No: Rebound, Tender, Hernia - Patient Data Lab Results Last 24 hrs: Laboratory Results - last 24 hr 12/15/16 Range/Units 15:02 POC Glucose 100 (60-110) mg/dL Result Diagrams: 12/15/16 11:24 12/15/16 11:24 Consult PN Assessment/Plan Procedures: Procedures ANGIOTENSIN I ENZYME TEST (03/27/16) ASSAY OF AMYLASE (06/30/16) ASSAY OF BLOOD/URIC ACID (10/06/16) ASSAY OF C-PEPTIDE (01/07/16) ASSAY OF CALCIUM (03/27/16) ASSAY OF FREE THYROXINE (12/10/16) ASSAY OF PARATHORMONE (03/27/16) ASSAY OF PHOSPHORUS (03/26/16) ASSAY OF PROTEIN URINE (11/25/16) ASSAY OF TROPONIN QUANT (11/13/16) ASSAY OF URINE CREATININE (11/25/16) ASSAY THYROID STIM HORMONE (12/10/16) CARPAL TUNNEL SURGERY (09/09/16) CHEST X-RAY 2VW FRONTAL&LATL (03/27/16) CO/MEMBANE DIFFUSE CAPACITY (01/14/16) COMP SCREEN MAMMOGRAM ADD-ON (01/08/16) COMPLETE CBC AUTOMATED (11/25/16) COMPLETE CBC W/AUTO DIFF WBC (11/13/16) COMPREHEN METABOLIC PANEL (11/13/16) CREATINE MB FRACTION (11/13/16) CT ABD & PELV W/CONTRAST (06/30/16) CT ABD & PELVIS W/O CONTRAST (12/04/16) CT THORAX W/O DYE (12/04/16) ECHO EXAM OF ABDOMEN (11/25/16) EMERGENCY DEPT VISIT (07/17/15) EVALUATION OF WHEEZING (01/14/16) GLUCOSE BLOOD TEST (09/09/16) GLYCOSYLATED HEMOGLOBIN TEST (12/10/16) LIPID PANEL (10/06/16) MED NUTRITION INDIV SUBSEQ (07/09/16) MEDICAL NUTRITION INDIV IN (05/14/16) METABOLIC PANEL TOTAL CA (03/26/16) MICROALBUMIN SEMIQUANT (01/07/16) ORTHOTIC MGMT AND TRAINING (07/21/16) RENAL FUNCTION PANEL (11/25/16) ROUTINE VENIPUNCTURE (11/25/16) THER/PROPH/DIAG INJ SC/IM (07/17/15) URINALYSIS AUTO W/SCOPE (11/25/16) URINE CULTURE/COLONY COUNT (01/07/16) VIT D 1 25-DIHYDROXY (12/10/16) X-RAY EXAM KNEE 4 OR MORE (07/09/16) X-RAY EXAM OF FINGER(S) (08/11/16) X-RAY EXAM OF FOOT (06/30/16) X-RAY EXAM RIBS UNI 2 VIEWS (07/17/15) (1) Biliary colic SNOMED Code(s): 01014182 Code(s): K80.50 - CALCULUS OF BILE DUCT W/O CHOLANGITIS OR CHOLECYST W/O OBST Current Visit: Yes (2) Cholelithiasis SNOMED Code(s): 583777861 Code(s): K80.20 - CALCULUS OF GALLBLADDER W/O CHOLECYSTITIS W/O OBSTRUCTION Current Visit: Yes Qualifiers: Cholelithiasis location: gallbladder Cholecystitis presence: without cholecystitis Biliary obstruction: without biliary obstruction Qualified Code(s): K80.20 - Calculus of gallbladder without cholecystitis without obstruction (3) Dehydration SNOMED Code(s): 18194566 Code(s): E86.0 - DEHYDRATION Current Visit: Yes (4) Intractable nausea and vomiting SNOMED Code(s): 352601359, 557271388 Code(s): R11.2 - NAUSEA WITH VOMITING, UNSPECIFIED Current Visit: Yes Qualifiers: Vomiting type: unspecified Qualified Code(s): R11.2 - Nausea with vomiting , unspecified Problem List Initiated/Reviewed/Updated: Yes Plan: I explained to the patient that her complex surgical history makes her case complicated. She would be best served in a large center with greater resources as she may need an open surgery, removal of mesh, or ICU care afterwards. She is feeling better now. We will try to advance her diet tomorrow. If her pain and nausea are controlled and she can stay hydrated, I will try to arrange a surgical consultation as an outpatient this week. If we cannot control her pain and nausea, I will transfer her to a larger center where they can evaluate her for possible cholecystectomy. Continue IVF, IV pain meds, NPO (except meds and ice chips) until tomorrow. Will advance diet tomorrow and review labs.
[2016-12-15] MEDS: Insulin Aspart 100 Units/ML 3 ML Pen SUBCUT SCH ×2 (18:28→23:55)
[2016-12-15] MEDS ORDERED: diphenhydrAMINE 25 MG Cap PO ONE (18:29)
[2016-12-15] MEDS: metroNIDAZOLE/Normal Saline 500 MG in Premix Bag 1 BAG IV SCH (19:54)
[2016-12-15] MEDS ORDERED: Fluticasone/Salmeterol 250-50 MCG Inhalation Powder 14/Diskus INH SCH (21:00)
[2016-12-15] MEDS ORDERED: Promethazine 25 MG/ML SDV IM PRN (23:58)
[2016-12-16] MEDS: metroNIDAZOLE/Normal Saline 500 MG in Premix Bag 1 BAG IV SCH ×3 (01:45→13:23)
[2016-12-16] MEDS: Ondansetron 4 MG/2 ML SDV IVPUSH PRN ×2 (01:45→08:04)
[2016-12-16] MEDS ORDERED: Fluticasone/Salmeterol 250-50 MCG Inhalation Powder 14/Diskus INH PRN (02:45)
[2016-12-16] MEDS: Sodium Chloride 0.9% 1,000 ML IV SCH (03:57)
[2016-12-16] MEDS: HYDROmorphone 1 MG/ML Syringe IVPUSH PRN ×3 (04:33→11:23)
[2016-12-16 04:59] LABS: CHLORIDE,CL 105 mmol/L (98-110); SODIUM,NA 138 mmol/L (136-146)
[2016-12-16] MEDS: Insulin Aspart 100 Units/ML 3 ML Pen SUBCUT SCH ×2 (06:18→11:29)
[2016-12-16] MEDS ORDERED: Levothyroxine 150 MCG Tab PO SCH (07:30)
[2016-12-16] MEDS ORDERED: Levothyroxine 75 MCG Tab PO SCH (07:30)
--- NOTE | 2016-12-16 07:47 | PCM.CONSN ---
- General Info Date of Service: 12/16/16 Subjective Update: Patients pain is much better. She still required dilaudid overnight. She did not sleep very well last evening. She is tearful and anxious this morning. She told me "I just dont want this to happen again." She is very hungry and thirsty. She denies fevers or chills. Vitals were stable. - Review of Systems General: Reports: Fatigue Gastrointestinal: Reports: No Symptoms - Patient Data Vitals - Most Recent: Last Vital Signs Temp 36.4 C 12/16/16 04:00 Pulse 66 12/16/16 04:00 Resp 17 12/16/16 04:00 BP 98/59 L 12/16/16 04:00 Pulse Ox 66 L 12/16/16 04:00 Weight - Most Recent: 114 kg I&O - Last 24 Hours: Intake & Output 12/15/16 12/16/16 12/16/16 22:59 06:59 14:59 Intake Total 410 1160 Output Total 350 Balance 410 810 Lab Results Last 24 Hours: Laboratory Results - last 24 hr 12/15/16 12/15/16 12/15/16 Range/Units 15:02 18:21 23:54 WBC (4.0-11.0) K/uL RBC (4.30-5.90) M/uL Hgb (12.0-16.0) g/dL Hct (36.0-46.0) % MCV (80.0-98.0) fL MCH (27.0-32.0) pg MCHC (31.0-37.0) g/dL RDW Std Deviation (28.0-62.0) fl RDW Coeff of Sheryl (11.0-15.0) % Plt Count (150-400) K/uL MPV (7.40-12.00) fL Neut % (Auto) (48.0-80.0) % Lymph % (Auto) (16.0-40.0) % Cloud % (Auto) (0.0-15.0) % Eos % (Auto) (0.0-7.0) % Baso % (Auto) (0.0-1.5) % Neut # (Auto) (1.4-5.7) K/uL Lymph # (Auto) (0.6-2.4) K/uL Cloud # (Auto) (0.0-0.8) K/uL Eos # (Auto) (0.0-0.7) K/uL Baso # (Auto) (0.0-0.1) K/uL Nucleated RBC % /100WBC Nucleated RBCs # K/uL Sodium (136-146) mmol/L Potassium (3.5-5.1) mmol/L Chloride (98-110) mmol/L Carbon Dioxide (21-31) mmol/L BUN (6.0-23.0) mg/dL Creatinine (0.6-1.5) mg/dL Est Cr Clr Drug Dosing mL/min Estimated GFR (MDRD) ml/min Glucose (60-110) mg/dL POC Glucose 100 116 H 109 (60-110) mg/dL Calcium (8.8-10.8) mg/dL Total Bilirubin (0.1-1.5) mg/dL AST (5-40) IU/L ALT (8-54) IU/L Alkaline Phosphatase (40-150) Total Protein (6.0-8.0) g/dL Albumin (3.5-5.0) g/dL Globulin (2.0-3.5) g/dL Albumin/Globulin Ratio (1.3-2.8) 12/16/16 12/16/16 12/16/16 Range/Units 04:20 04:20 06:17 WBC 11.71 H (4.0-11.0) K/uL RBC 4.08 L (4.30-5.90) M/uL Hgb 12.7 (12.0-16.0) g/dL Hct 38.2 (36.0-46.0) % MCV 93.6 (80.0-98.0) fL MCH 31.1 (27.0-32.0) pg MCHC 33.2 (31.0-37.0) g/dL RDW Std Deviation 48.5 (28.0-62.0) fl RDW Coeff of Sheryl 14 (11.0-15.0) % Plt Count 223 (150-400) K/uL MPV 10.40 (7.40-12.00) fL Neut % (Auto) 63.4 (48.0-80.0) % Lymph % (Auto) 27.9 (16.0-40.0) % Cloud % (Auto) 6.5 (0.0-15.0) % Eos % (Auto) 1.9 (0.0-7.0) % Baso % (Auto) 0.3 (0.0-1.5) % Neut # (Auto) 7.4 H (1.4-5.7) K/uL Lymph # (Auto) 3.3 H (0.6-2.4) K/uL Cloud # (Auto) 0.8 (0.0-0.8) K/uL Eos # (Auto) 0.2 (0.0-0.7) K/uL Baso # (Auto) 0.0 (0.0-0.1) K/uL Nucleated RBC % 0.0 /100WBC Nucleated RBCs # 0 K/uL Sodium 138 (136-146) mmol/L Potassium 4.1 (3.5-5.1) mmol/L Chloride 105 (98-110) mmol/L Carbon Dioxide 28 (21-31) mmol/L BUN 12 (6.0-23.0) mg/dL Creatinine 0.8 (0.6-1.5) mg/dL Est Cr Clr Drug Dosing 74.26 mL/min Estimated GFR (MDRD) > 60.0 ml/min Glucose 101 (60-110) mg/dL POC Glucose 93 (60-110) mg/dL Calcium 8.3 L (8.8-10.8) mg/dL Total Bilirubin 0.5 (0.1-1.5) mg/dL AST 22 (5-40) IU/L ALT 33 (8-54) IU/L Alkaline Phosphatase 109 (40-150) Total Protein 6.1 (6.0-8.0) g/dL Albumin 3.2 L (3.5-5.0) g/dL Globulin 2.9 (2.0-3.5) g/dL Albumin/Globulin Ratio 1.1 L (1.3-2.8) Med Orders - Current: Current Medications Albuterol (Ventolin Hfa) 0 gm INH Q6H PRN PRN Reason: Shortness of Breath Enoxaparin Sodium (Lovenox) 40 mg SUBCUT DAILY [facility] Hydromorphone HCl (Dilaudid) 1 mg IVPUSH Q2H PRN PRN Reason: Pain Last Admin: 12/16/16 04:33 Dose: 1 mg Sodium Chloride (Normal Saline) 1,000 mls @ 125 mls/hr IV ASDIRECTED [facility] Last Admin: 12/16/16 03:57 Dose: 125 mls/hr Pantoprazole Sodium 40 mg/ (Sodium Chloride) 10 mls @ 300 mls/hr IVPUSH Q24H [facility] Last Admin: 12/15/16 14:59 Dose: 300 mls/hr Levofloxacin/Dextrose 750 mg/ (Premix) 150 mls @ 100 mls/hr IV Q24H [facility] Last Admin: 12/15/16 17:32 Dose: 100 mls/hr Metronidazole 500 mg/ Premix 100 mls @ 100 mls/hr IV Q6H [facility] Last Admin: 12/16/16 01:45 Dose: 100 mls/hr Insulin Aspart (Novolog) 0 unit SUBCUT Q6H [facility] PRN Reason: Protocol Last Admin: 12/16/16 06:18 Dose: Not Given Levothyroxine Sodium (Levothyroxine) 75 mcg PO ACBREAKFAST [facility] Last Admin: 12/16/16 07:38 Dose: 75 mcg Levothyroxine Sodium (Levothyroxine) 150 mcg PO ACBREAKFAST [facility] Ondansetron HCl (Zofran) 4 mg IVPUSH Q4H PRN PRN Reason: Nausea Last Admin: 12/16/16 01:45 Dose: 4 mg Promethazine HCl (Phenergan) 25 mg IM Q6H PRN PRN Reason: Nausea/Vomiting Fluticasone/Salmeterol (Advair Diskus 250-50) 1 puff INH BID PRN PRN Reason: Shortness of Breath Valsartan (Diovan) 40 mg PO DAILY [facility] Discontinued Medications Diphenhydramine HCl (Benadryl) 25 mg PO ONETIME ONE Stop: 12/15/16 18:30 Last Admin: 12/15/16 18:42 Dose: 25 mg Fentanyl (Sublimaze) 50 mcg IVPUSH ONETIME ONE Stop: 12/15/16 11:02 Last Admin: 12/15/16 11:24 Dose: 50 mcg Fentanyl (Sublimaze) Confirm Administered Dose 100 mcg .ROUTE .STK-MED ONE Stop: 12/15/16 11:59 Last Admin: 12/15/16 12:00 Dose: Not Given Fentanyl (Sublimaze) 50 mcg IVPUSH NOW STA Stop: 12/15/16 11:56 Last Admin: 12/15/16 11:58 Dose: 50 mcg Sodium Chloride (Normal Saline) 1,000 mls @ 999 mls/hr IV STAT ONE Stop: 12/15/16 12:01 Last Admin: 12/15/16 11:31 Dose: 999 mls/hr Levofloxacin/Dextrose 750 mg/ (Premix) 150 mls @ 100 mls/hr IV Q24H [facility] Last Admin: 12/15/16 16:18 Dose: Not Given Metronidazole 500 mg/ Premix 100 mls @ 100 mls/hr IV QID [facility] Last Admin: 12/15/16 14:41 Dose: 100 mls/hr Ondansetron HCl (Zofran) 8 mg IVPUSH ONETIME ONE Stop: 12/15/16 11:02 Last Admin: 12/15/16 11:35 Dose: 8 mg Fluticasone/Salmeterol (Advair Diskus 250-50) 1 puff INH BID [facility] Last Admin: 12/15/16 22:25 Dose: Not Given - Exam General: Alert, Oriented, Other (tearful) Lungs: Clear to Auscultation, Normal Respiratory Effort Cardiovascular: Regular Rate, Regular Rhythm GI/Abdominal Exam: Soft, Non-Tender, No Distention Psy/Mental Status: Anxious, Depressed Consult PN Assessment/Plan Procedures: Procedures ANGIOTENSIN I ENZYME TEST (03/27/16) ASSAY OF AMYLASE (06/30/16) ASSAY OF BLOOD/URIC ACID (10/06/16) ASSAY OF C-PEPTIDE (01/07/16) ASSAY OF CALCIUM (03/27/16) ASSAY OF FREE THYROXINE (12/10/16) ASSAY OF PARATHORMONE (03/27/16) ASSAY OF PHOSPHORUS (03/26/16) ASSAY OF PROTEIN URINE (11/25/16) ASSAY OF TROPONIN QUANT (11/13/16) ASSAY OF URINE CREATININE (11/25/16) ASSAY THYROID STIM HORMONE (12/10/16) CARPAL TUNNEL SURGERY (09/09/16) CHEST X-RAY 2VW FRONTAL&LATL (03/27/16) CO/MEMBANE DIFFUSE CAPACITY (01/14/16) COMP SCREEN MAMMOGRAM ADD-ON (01/08/16) COMPLETE CBC AUTOMATED (11/25/16) COMPLETE CBC W/AUTO DIFF WBC (11/13/16) COMPREHEN METABOLIC PANEL (11/13/16) CREATINE MB FRACTION (11/13/16) CT ABD & PELV W/CONTRAST (06/30/16) CT ABD & PELVIS W/O CONTRAST (12/04/16) CT THORAX W/O DYE (12/04/16) ECHO EXAM OF ABDOMEN (11/25/16) EMERGENCY DEPT VISIT (07/17/15) EVALUATION OF WHEEZING (01/14/16) GLUCOSE BLOOD TEST (09/09/16) GLYCOSYLATED HEMOGLOBIN TEST (12/10/16) LIPID PANEL (10/06/16) MED NUTRITION INDIV SUBSEQ (07/09/16) MEDICAL NUTRITION INDIV IN (05/14/16) METABOLIC PANEL TOTAL CA (03/26/16) MICROALBUMIN SEMIQUANT (01/07/16) ORTHOTIC MGMT AND TRAINING (07/21/16) RENAL FUNCTION PANEL (11/25/16) ROUTINE VENIPUNCTURE (11/25/16) THER/PROPH/DIAG INJ SC/IM (07/17/15) URINALYSIS AUTO W/SCOPE (11/25/16) URINE CULTURE/COLONY COUNT (01/07/16) VIT D 1 25-DIHYDROXY (12/10/16) X-RAY EXAM KNEE 4 OR MORE (07/09/16) X-RAY EXAM OF FINGER(S) (08/11/16) X-RAY EXAM OF FOOT (06/30/16) X-RAY EXAM RIBS UNI 2 VIEWS (07/17/15) (1) Biliary colic SNOMED Code(s): 77501027 Code(s): K80.50 - CALCULUS OF BILE DUCT W/O CHOLANGITIS OR CHOLECYST W/O OBST Current Visit: Yes (2) Cholelithiasis SNOMED Code(s): 618651599 Code(s): K80.20 - CALCULUS OF GALLBLADDER W/O CHOLECYSTITIS W/O OBSTRUCTION Current Visit: Yes Qualifiers: Cholelithiasis location: gallbladder Cholecystitis presence: without cholecystitis Biliary obstruction: without biliary obstruction Qualified Code(s): K80.20 - Calculus of gallbladder without cholecystitis without obstruction (3) Dehydration SNOMED Code(s): 79499143 Code(s): E86.0 - DEHYDRATION Current Visit: Yes (4) Intractable nausea and vomiting SNOMED Code(s): 819073205, 219060120 Code(s): R11.2 - NAUSEA WITH VOMITING, UNSPECIFIED Current Visit: Yes Qualifiers: Vomiting type: unspecified Qualified Code(s): R11.2 - Nausea with vomiting , unspecified Problem List Initiated/Reviewed/Updated: Yes My Orders Last 24 Hours: My Active Orders 12/16/16 Lunch Clear Liquid Diet [DIET] Plan: -Advance diet to clears this morning. I told patient to eat small amounts at first. If she tolerates this she can advance to a low fat diet later today. -Ok to transition IV pain meds to oral narcotics and IV antibiotics to oral meds. -If able to tolerated po meds and diet and pain controlled, d/c home this evening. Patient wants to be seen in [place] for possible surgery. Would try to get her an appointment this Wednesday with any of the surgeons in [place]. I explained to the patient that the symptoms may come back after discharge. If they do she should be transferred to a larger facility at that time to have surgery expedited. -Will check on patient later. Call with ?s or concerns.
[2016-12-16] MEDS ORDERED: Acetaminophen/HYDROcodone 325-5 MG Tab PO PRN (08:08)
[2016-12-16] MEDS ORDERED: Enoxaparin 40 MG/0.4 ML Syringe SUBCUT SCH (09:00)
[2016-12-16] MEDS ORDERED: Alum Hydrox/Mag Hydrox/Simeth 15 ML, Lidocaine 2% 5 ML PO ONE ×2 (09:42)
--- NOTE | 2016-12-16 11:07 | PCM.DCSUM1 ---
Discharge Summary - Hospital Course Brief History: This 46 year old female with pmh of DM type 2, tobacco use, obesity, multiple abdominal surgeries presented to the ED with concerns of intractable N/V and RUQ pain. She reports the beginning of November starting have this N/V and "bubbling up in her throat." The RUQ pain started a couple days later, but wasn't severe. She was seen in the clinic on November 13 with Zabrina Valdes for this, given Carafate and scheduled for US of RUQ. She reports having RUQ pain, that is dull and slowly intensifies. She denies radiation, no chest pain or palpitations.She reports subjective chills at home, but unknown if she had any fevers. No black or bloody BMS, no diarrhea. She has a BM normally every week. She has been followed by Dr. Cramer for cholelithiasis. SHe has extensive history of abdominal surgeries starting with REINALDO in her 20s, She reports after that she had incisional hernia repairs and had a total of 6 major abdominal surgeries in 5-6 months with mesh placement. She then had a ruptured appendix which caused extensive infection with her mesh and they had to remove it. In the ED leukocytosis noted 16,220, glucose 117, AST 28, ALT 40, Alk phos 129, and bilirubin 0.4. US of RUQ revealed cholelithiases with a positive marquez 's sign without secondary signs of cholecystitis, moderate fatty infiltration of the liver. She was admitted for observation for RUQ pain, intractable N/V. - Discharge Data Discharge Date: 12/16/16 Discharge Disposition: Home, Self-Care 01 Condition: Good - Discharge Diagnosis/Problem(s) (1) Intractable nausea and vomiting SNOMED Code(s): 517873702, 544149976 ICD Code: R11.2 - NAUSEA WITH VOMITING, UNSPECIFIED Status: Acute Current Visit: Yes Qualifiers: Vomiting type: unspecified Qualified Code(s): R11.2 - Nausea with vomiting , unspecified (2) Biliary colic SNOMED Code(s): 73127676 ICD Code: K80.50 - CALCULUS OF BILE DUCT W/O CHOLANGITIS OR CHOLECYST W/O OBST Status: Acute Current Visit: Yes (3) Dehydration SNOMED Code(s): 03601982 ICD Code: E86.0 - DEHYDRATION Status: Acute Current Visit: Yes (4) Cholelithiasis SNOMED Code(s): 314258423 ICD Code: K80.20 - CALCULUS OF GALLBLADDER W/O CHOLECYSTITIS W/O OBSTRUCTION Status: Acute Current Visit: Yes Qualifiers: Cholelithiasis location: gallbladder Cholecystitis presence: without cholecystitis Biliary obstruction: without biliary obstruction Qualified Code(s): K80.20 - Calculus of gallbladder without cholecystitis without obstruction (5) Obesity, morbid, BMI 40.0-49.9 SNOMED Code(s): 623343769, 247825524 ICD Code: E66.01 - MORBID (SEVERE) OBESITY DUE TO EXCESS CALORIES Status: Chronic Current Visit: Yes (6) HTN (hypertension) SNOMED Code(s): 92258674 ICD Code: I10 - ESSENTIAL (PRIMARY) HYPERTENSION Status: Chronic Current Visit: Yes Qualifiers: Hypertension type: essential hypertension Qualified Code(s): I10 - Essential (primary) hypertension (7) DM type 2 (diabetes mellitus, type 2) SNOMED Code(s): 33175693 ICD Code: E11.9 - TYPE 2 DIABETES MELLITUS WITHOUT COMPLICATIONS Status: Chronic Current Visit: Yes Qualifiers: 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 complication status: with unspecified complications 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 Qualified Code(s) : E11.8 - Type 2 diabetes mellitus with unspecified complications; Z79.4 - senior living (current) use of insulin (8) Hx of thyroidectomy SNOMED Code(s): 581912639, 512683074 ICD Code: E89.0 - POSTPROCEDURAL HYPOTHYROIDISM Status: Chronic Current Visit: Yes - Patient Instructions Diet: GI Soft/Low Residue/Low Fiber (low fat, small portions) Activity: As Tolerated, No Strenuous Activities Driving: Do Not Drive (no driving while taking narcotics) Notify Provider of: Fever, Increased Pain, Swelling and Redness, Drainage, Nausea and/or Vomiting - Discharge Plan Prescriptions/Med Rec: Acetaminophen/HYDROcodone [[place] 325-5 MG] 1 - 2 tab PO Q6H PRN #20 tablet PRN Reason: Pain Levofloxacin [Levaquin] 750 mg PO DAILY #9 tab metroNIDAZOLE [Flagyl] 500 mg PO Q8H #27 tablet Ondansetron [Zofran ODT] 4 mg PO Q4H PRN #15 tab.dis PRN Reason: Nausea Home Medications: Home Meds metFORMIN HCl [Metformin HCl ER] 1,000 mg PO BIDMEALS 07/17/15 [History] Albuterol Sulfate [Proair Hfa] 2 puff INH Q4H PRN 09/04/16 [History] Dulaglutide [Trulicity] 1.5 mg SUBCUT WEEKLY 09/04/16 [History] Fluticasone/Salmeterol [Advair 250-50 Diskus] 1 puff INH BID 09/04/16 [History] Insulin Aspart [NovoLOG] 1 injection SUBCUT ASDIRECTED 09/04/16 [History] Levothyroxine Sodium [Synthroid] 225 mcg PO DAILY 09/04/16 [History] Omeprazole 20 mg PO DAILY 09/04/16 [History] Valsartan 40 mg PO DAILY 09/04/16 [History] Sucralfate [Carafate] 1 gram PO QID 12/15/16 [History] Acetaminophen/HYDROcodone [[place] 325-5 MG] 1 - 2 tab PO Q6H PRN #20 tablet 12/16 [Rx] Levofloxacin [Levaquin] 750 mg PO DAILY #9 tab 12/16/16 [Rx] Ondansetron [Zofran ODT] 4 mg PO Q4H PRN #15 tab.dis 12/16/16 [Rx] Pravastatin Sodium 20 mg PO BEDTIME 12/16/16 [History] metroNIDAZOLE [Flagyl] 500 mg PO Q8H #27 tablet 12/16/16 [Rx] Patient Handouts: Acetaminophen; Hydrocodone tablets or capsules, Nausea, Adult , Ondansetron tablets, Cholelithiasis, [id number], Biliary Colic, Levofloxacin tablets, Metronidazole tablets or capsules - Discharge Summary/Plan Comment DC Time >30 min.: No Discharge Summary/Plan Comment: Discharge Diagnoses: Cholelithasis Biliary colic HTN DM type 2 Obesity Hx multiple abdominal surgeries with mesh placement Yi was observed overnight and treated with IVFs, Levaquin, Flagyl and analgesia and antiemetics. Today she is feeling better and is eager for discharge and follow up with general surgeon. Dr. Jewell is ok with discharge and recommended follow up quickly with general surgeon in [place], [place]. She has tolerated FL and soft diet, encouraged to keep low fat and small portions. She has appointment arranged tomorrow at 1:[address] Dickson, general surgery in [place] to be evaluated for cholecystectomy. She will be given Levaquin and Flagyl for 9 more days, along with [place] 5/325 mg 1-2 tabs every 6 hours as needed for pain #20 tabs, and Zofran ODT every 4 hours PRN. She is to follow up with tomorrow as scheduled. Return to ED or clinic if concerns should arise. - General Info Date of Service: 12/16/16 Admission Dx/Problem (Free Text: Symptomatic cholelithiasis Subjective Update: Feeling much better today, continues to be tired from lack of sleep but is wanting to try CL diet or some, "I am hungry and thirsty." Denies chest pain or SOB. ABdominal pain is better, but still hurts with too much movement. No longer nauseated. Still has feelings of heart burn Functional Status: Reports: Pain Controlled, Tolerating Diet, Ambulating, Urinating - Review of Systems General: Reports: No Symptoms. Denies: Fever, Weakness HEENT: Reports: No Symptoms. Denies: Headaches, Sinus Congestion, Sore Throat Pulmonary: Reports: No Symptoms. Denies: Shortness of Breath, Cough, Sputum Cardiovascular: Reports: No Symptoms. Denies: Chest Pain, Palpitations Gastrointestinal: Reports: Abdominal Pain (RUQ, improved), Flatus. Denies: Constipation, Diarrhea, Nausea, Vomiting Genitourinary: Reports: No Symptoms. Denies: Dysuria, Frequency, Burning Musculoskeletal: Reports: No Symptoms. Denies: Neck Pain Neurological: Reports: No Symptoms Psychiatric: Reports: No Symptoms - Patient Data Vitals - Most Recent: Last Vital Signs Temp 96.3 F 12/16/16 08:00 Pulse 62 12/16/16 08:00 Resp 16 12/16/16 08:00 BP 106/63 12/16/16 08:14 Pulse Ox 95 12/16/16 08:00 Weight - Most Recent: 114 kg I&O - Last 24 hours: Intake & Output 12/15/16 12/16/16 12/16/16 22:59 06:59 14:59 Intake Total 410 1160 Output Total 350 Balance 410 810 Lab Results - Last 24 hrs: Laboratory Results - last 24 hr 12/15/16 12/15/16 12/15/16 Range/Units 15:02 18:21 23:54 WBC (4.0-11.0) K/uL RBC (4.30-5.90) M/uL Hgb (12.0-16.0) g/dL Hct (36.0-46.0) % MCV (80.0-98.0) fL MCH (27.0-32.0) pg MCHC (31.0-37.0) g/dL RDW Std Deviation (28.0-62.0) fl RDW Coeff of Sheryl (11.0-15.0) % Plt Count (150-400) K/uL MPV (7.40-12.00) fL Neut % (Auto) (48.0-80.0) % Lymph % (Auto) (16.0-40.0) % Campbell % (Auto) (0.0-15.0) % Eos % (Auto) (0.0-7.0) % Baso % (Auto) (0.0-1.5) % Neut # (Auto) (1.4-5.7) K/uL Lymph # (Auto) (0.6-2.4) K/uL Campbell # (Auto) (0.0-0.8) K/uL Eos # (Auto) (0.0-0.7) K/uL Baso # (Auto) (0.0-0.1) K/uL Nucleated RBC % /100WBC Nucleated RBCs # K/uL Sodium (136-146) mmol/L Potassium (3.5-5.1) mmol/L Chloride (98-110) mmol/L Carbon Dioxide (21-31) mmol/L BUN (6.0-23.0) mg/dL Creatinine (0.6-1.5) mg/dL Est Cr Clr Drug Dosing mL/min Estimated GFR (MDRD) ml/min Glucose (60-110) mg/dL POC Glucose 100 116 H 109 (60-110) mg/dL Calcium (8.8-10.8) mg/dL Total Bilirubin (0.1-1.5) mg/dL AST (5-40) IU/L ALT (8-54) IU/L Alkaline Phosphatase (40-150) Total Protein (6.0-8.0) g/dL Albumin (3.5-5.0) g/dL Globulin (2.0-3.5) g/dL Albumin/Globulin Ratio (1.3-2.8) 12/16/16 12/16/16 12/16/16 Range/Units 04:20 04:20 06:17 WBC 11.71 H (4.0-11.0) K/uL RBC 4.08 L (4.30-5.90) M/uL Hgb 12.7 (12.0-16.0) g/dL Hct 38.2 (36.0-46.0) % MCV 93.6 (80.0-98.0) fL MCH 31.1 (27.0-32.0) pg MCHC 33.2 (31.0-37.0) g/dL RDW Std Deviation 48.5 (28.0-62.0) fl RDW Coeff of Sheryl 14 (11.0-15.0) % Plt Count 223 (150-400) K/uL MPV 10.40 (7.40-12.00) fL Neut % (Auto) 63.4 (48.0-80.0) % Lymph % (Auto) 27.9 (16.0-40.0) % Campbell % (Auto) 6.5 (0.0-15.0) % Eos % (Auto) 1.9 (0.0-7.0) % Baso % (Auto) 0.3 (0.0-1.5) % Neut # (Auto) 7.4 H (1.4-5.7) K/uL Lymph # (Auto) 3.3 H (0.6-2.4) K/uL Campbell # (Auto) 0.8 (0.0-0.8) K/uL Eos # (Auto) 0.2 (0.0-0.7) K/uL Baso # (Auto) 0.0 (0.0-0.1) K/uL Nucleated RBC % 0.0 /100WBC Nucleated RBCs # 0 K/uL Sodium 138 (136-146) mmol/L Potassium 4.1 (3.5-5.1) mmol/L Chloride 105 (98-110) mmol/L Carbon Dioxide 28 (21-31) mmol/L BUN 12 (6.0-23.0) mg/dL Creatinine 0.8 (0.6-1.5) mg/dL Est Cr Clr Drug Dosing 74.26 mL/min Estimated GFR (MDRD) > 60.0 ml/min Glucose 101 (60-110) mg/dL POC Glucose 93 (60-110) mg/dL Calcium 8.3 L (8.8-10.8) mg/dL Total Bilirubin 0.5 (0.1-1.5) mg/dL AST 22 (5-40) IU/L ALT 33 (8-54) IU/L Alkaline Phosphatase 109 (40-150) Total Protein 6.1 (6.0-8.0) g/dL Albumin 3.2 L (3.5-5.0) g/dL Globulin 2.9 (2.0-3.5) g/dL Albumin/Globulin Ratio 1.1 L (1.3-2.8) Med Orders - Current: Current Medications Hydrocodone Bitart/Acetaminophen ([place] 325-5 Mg) 1 - 2 tab PO Q4H PRN PRN Reason: Pain Albuterol (Ventolin Hfa) 0 gm INH Q6H PRN PRN Reason: Shortness of Breath Enoxaparin Sodium (Lovenox) 40 mg SUBCUT DAILY [facility] Last Admin: 12/16/16 08:18 Dose: 40 mg Hydromorphone HCl (Dilaudid) 1 mg IVPUSH Q2H PRN PRN Reason: Pain Last Admin: 12/16/16 08:04 Dose: 1 mg Sodium Chloride (Normal Saline) 1,000 mls @ 125 mls/hr IV ASDIRECTED [facility] Last Admin: 12/16/16 03:57 Dose: 125 mls/hr Pantoprazole Sodium 40 mg/ (Sodium Chloride) 10 mls @ 300 mls/hr IVPUSH Q24H [facility] Last Admin: 12/15/16 14:59 Dose: 300 mls/hr Levofloxacin/Dextrose 750 mg/ (Premix) 150 mls @ 100 mls/hr IV Q24H [facility] Last Admin: 12/15/16 17:32 Dose: 100 mls/hr Metronidazole 500 mg/ Premix 100 mls @ 100 mls/hr IV Q6H [facility] Last Admin: 12/16/16 08:14 Dose: 100 mls/hr Insulin Aspart (Novolog) 0 unit SUBCUT Q6H [facility] PRN Reason: Protocol Last Admin: 12/16/16 06:18 Dose: Not Given Levothyroxine Sodium (Levothyroxine) 75 mcg PO ACBREAKFAST [facility] Last Admin: 12/16/16 07:38 Dose: 75 mcg Levothyroxine Sodium (Levothyroxine) 150 mcg PO ACBREAKFAST [facility] Last Admin: 12/16/16 08:14 Dose: 150 mcg Ondansetron HCl (Zofran) 4 mg IVPUSH Q4H PRN PRN Reason: Nausea Last Admin: 12/16/16 08:04 Dose: 4 mg Promethazine HCl (Phenergan) 25 mg IM Q6H PRN PRN Reason: Nausea/Vomiting Fluticasone/Salmeterol (Advair Diskus 250-50) 1 puff INH BID PRN PRN Reason: Shortness of Breath Valsartan (Diovan) 40 mg PO DAILY [facility] Last Admin: 12/16/16 08:14 Dose: 40 mg Discontinued Medications Al Hydroxide/Mg Hydroxide 15 (ml/ Lidocaine HCl 5 ml) 0 ml PO ONETIME ONE Stop: 12/16/16 09:43 Last Admin: 12/16/16 10:10 Dose: 1 each Diphenhydramine HCl (Benadryl) 25 mg PO ONETIME ONE Stop: 12/15/16 18:30 Last Admin: 12/15/16 18:42 Dose: 25 mg Fentanyl (Sublimaze) 50 mcg IVPUSH ONETIME ONE Stop: 12/15/16 11:02 Last Admin: 12/15/16 11:24 Dose: 50 mcg Fentanyl (Sublimaze) Confirm Administered Dose 100 mcg .ROUTE .STK-MED ONE Stop: 12/15/16 11:59 Last Admin: 12/15/16 12:00 Dose: Not Given Fentanyl (Sublimaze) 50 mcg IVPUSH NOW STA Stop: 12/15/16 11:56 Last Admin: 12/15/16 11:58 Dose: 50 mcg Sodium Chloride (Normal Saline) 1,000 mls @ 999 mls/hr IV STAT ONE Stop: 12/15/16 12:01 Last Admin: 12/15/16 11:31 Dose: 999 mls/hr Levofloxacin/Dextrose 750 mg/ (Premix) 150 mls @ 100 mls/hr IV Q24H [facility] Last Admin: 12/15/16 16:18 Dose: Not Given Metronidazole 500 mg/ Premix 100 mls @ 100 mls/hr IV QID [facility] Last Admin: 12/15/16 14:41 Dose: 100 mls/hr Ondansetron HCl (Zofran) 8 mg IVPUSH ONETIME ONE Stop: 12/15/16 11:02 Last Admin: 12/15/16 11:35 Dose: 8 mg Fluticasone/Salmeterol (Advair Diskus 250-50) 1 puff INH BID [facility] Last Admin: 12/15/16 22:25 Dose: Not Given - Exam General: Reports: Alert, Oriented, Cooperative, No Acute Distress HEENT: Reports: Pupils Equal, Pupils Reactive, EOMI, Mucous Membr. Moist/Suring Neck: Reports: Supple Lungs: Reports: Clear to Auscultation, Normal Respiratory Effort Cardiovascular: Reports: Regular Rate, Regular Rhythm GI/Abdominal Exam: Normal Bowel Sounds, Soft, No Organomegaly, Tender (scant tenderness to RUQ, but allows deeper palpation than compared to yesterday no gaurding noted. ), Other (obese abdomen) Extremities: Normal Inspection, Normal Range of Motion, Non-Tender, No Pedal Edema, Normal Capillary Refill Neurological: Reports: No New Focal Deficit Psy/Mental Status: Reports: Alert, Normal Affect, Normal Mood *Q Meaningful Use (DIS) - VTE *Q VTE Criteria *Q: - Stroke *Q Stroke Criteria *Q: - AMI *Q AMI Criteria *Q:
[2016-12-16 11:33] VITALS: BP 149/85
[2016-12-16] MEDS: Pantoprazole 40 MG in Sodium Chloride 0.9% 10 ML IVPUSH SCH (13:23)
== END 2016-12-16 13:38 | disposition home or self-care (01) ==
LOC: MW.ED 10:34 → MW.MS 13:35
PROVIDERS: ADMIT Internal Medicine; ATTEND Internal Medicine
DX: K80.20 Calculus of gallbladder without cholecystitis without obstruction (principal); K80.50 Calculus of bile duct without cholangitis or cholecystitis without obstruction; R11.2 Nausea with vomiting, unspecified; E86.0 Dehydration; E66.01 Morbid (severe) obesity due to excess calories; I10 Essential (primary) hypertension; E11.8 Type 2 diabetes mellitus with unspecified complications; E89.0 Postprocedural hypothyroidism; D72.829 Elevated white blood cell count, unspecified; E78.00 Pure hypercholesterolemia, unspecified; G47.30 Sleep apnea, unspecified; K21.9 Gastro-esophageal reflux disease without esophagitis; M19.90 Unspecified osteoarthritis, unspecified site; F41.9 Anxiety disorder, unspecified; F32.9 Major depressive disorder, single episode, unspecified; F17.210 Nicotine dependence, cigarettes, uncomplicated; Z79.4 Long term (current) use of insulin; Z79.84 Long term (current) use of oral hypoglycemic drugs; Z79.51 Long term (current) use of inhaled steroids; Z79.899 Other long term (current) drug therapy; Z88.0 Allergy status to penicillin; Z88.1 Allergy status to other antibiotic agents; Z87.442 Personal history of urinary calculi; Z99.89 Dependence on other enabling machines and devices; Z68.1 Body mass index [BMI] 19.9 or less, adult; Z85.828 Personal history of other malignant neoplasm of skin; Z98.51 Tubal ligation status; Z90.49 Acquired absence of other specified parts of digestive tract; Z90.710 Acquired absence of both cervix and uterus; Z98.890 Other specified postprocedural states
CPT/HCPCS: 36415; 76705; 80053; 82150; 82962; 83690; 85025; 96361; 96365; 96366; 96367; 96372; 96375; 96376; 99285; A9270; C9113; G0378; J1170; J1650; J1956; J2405; J2550; J3010; J7040; 96374; 99284

== ENCOUNTER 2017-11-29 11:15 | Emergency (ER) | payer BC ==
[2017-11-29] MEDS ORDERED: Ketorolac 60 MG/2 ML SDV IM ONE (11:44)
[2017-11-29] MEDS ORDERED: methylPREDNISolone Sodium Succinate 125 MG/2 ML SDV IM ONE (11:44)
--- NOTE | 2017-11-29 12:13 | EDM.PDOC ---
ED HPI GENERAL MEDICAL PROBLEM - General Chief Complaint: Back Pain or Injury Stated Complaint: BACK HURTS Time Seen by Provider: 11/29/17 11:34 Source of Information: Reports: Patient History Limitations: Reports: No Limitations - History of Present Illness INITIAL COMMENTS - FREE TEXT/NARRATIVE: HISTORY AND PHYSICAL: History of present illness: Patient is a 47-year-old female who presents to the ER today with complaints of low back pain. She states for the past 2-3 weeks she has been having lumbar back pain with sciatica that wraps down her glue and towards the front of her anterior thigh. All any injury or trauma which precipitated this pain. She has been going to the chiropractor and was seen at the walk-in clinic for her discomfort. She states she was given Flexeril and tramadol 1 week. Once those medications were completed the pain has returned. She did have a "back x-ray" but did not know the results of this. Patient states that the pain is worse when lying flat or sitting in an upright position. Her pain is most improved when she is upright and ambulatory or her legs are elevated up on a pillow. She denies any numbness or tingling to her distal extremities. No urinary or fecal incontinence. Denies any weakness, fever, chills, shortness of breath or cough. Denies any abdominal pain, nausea, vomiting, diarrhea or constipation. Denies any dysuria. Review of systems: As per history of present illness and below otherwise all systems reviewed and negative. Past medical history: As per history of present illness and as reviewed below otherwise noncontributory. Surgical history: As per history of present illness and as reviewed below otherwise noncontributory. Social history: No reported history of drug or alcohol abuse. Family history: As per history of present illness and as reviewed below otherwise noncontributory. Physical exam: General: Developed and well-nourished 47-year-old female. Alert and oriented. Nontoxic appearing, tearful but in no acute distress. HEENT: Atraumatic, normocephalic, pupils equal and reactive bilaterally, negative for conjunctival pallor or scleral icterus, mucous membranes moist, throat clear, neck supple, nontender, trachea midline. No drooling or trismus noted. No meningeal signs Lungs: Clear to auscultation, breath sounds equal bilaterally, chest nontender. Heart: S1S2, regular rate and rhythm without overt murmur Abdomen: Soft, nondistended, nontender. Negative for masses or hepatosplenomegaly. Negative for costovertebral tenderness. Pelvis: Stable nontender. Genitourinary: Deferred. Rectal: Deferred. Skin: Intact, warm, dry. No lesions or rashes noted. C-spine/Back: No pinpoint vertebral tenderness upon palpation. No crepitus, step -offs or obvious deformities. Ambulatory with a steady and even gait. No urinary or fecal incontinence. Denies any numbness or tingling to distal extremities. Extremities: Atraumatic, negative for cords or calf pain. Neurovascular unremarkable. Neuro: Awake, alert, oriented. Cranial nerves II through XII unremarkable. Cerebellum unremarkable. Motor and sensory unremarkable throughout. Exam nonfocal. Notes: Discussed doing lab work with the patient, she declines. CT of the lumbar spine. He does have a ride today, will give Solu-Medrol, Norflex and Toradol IM. CT shows a compression fracture of L3. Current foraminal stenosis of L4-5. Diagnostics: Lumbar Spine CT Therapeutics: Toradol IM, Solu-Medrol IM, Norflex Prescription: Flexeril TID (#30) Medrol Dosepak Impression: Back with sciatica L3 compression fracture Plan: 1. Gentle heat and stretching to the area. Please avoid being sedentary as this can cause increased pain. When resting please lie flat on your back. Add a stool softener to prevent constipation with these medications. 2. Tylenol as needed for pain management. Please take your prescribed medications as directed. They may cause drowsiness so do not take it while driving or needing to be functioning outside of the house. 3. As we discussed please make a follow-up appointment with your primary care provider for later this week. You may need further imaging for this going back pain. Return to the ED as needed and as discussed. Definitive disposition and diagnosis as appropriate pending reevaluation and review of above. lower back Pain Score (Numeric/FACES): 8 - Related Data Allergies Allergy/AdvReac Type Severity Reaction Status Date / Time erythromycin base Allergy Vomiting Verified 11/29/17 11:28 Penicillins Allergy Difficulty Verified 11/29/17 11:28 Breathing Home Meds: Home Meds Levothyroxine Sodium [Synthroid] 225 mcg PO DAILY 09/04/16 [History] Omeprazole 40 mg PO DAILY 09/04/16 [History] Cyclobenzaprine [Flexeril] 10 mg PO TID PRN #30 tab 11/29/17 [Rx] traMADol [Ultram] 50 mg PO Q6H PRN #20 tab 11/29/17 [Rx] Past Medical History HEENT History: Reports: Allergic Rhinitis, Other (See Below) Other HEENT History: wears glasses/contacts Cardiovascular History: Reports: High Cholesterol, Hypertension Respiratory History: Reports: Sleep Apnea Other Respiratory History: uses CPAP, SOB on exertion Gastrointestinal History: Reports: Chronic Constipation, GERD Genitourinary History: Reports: Renal Calculus 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 (See Below) Other VIRTUAL CLASSROOM MANAGER History: abd hyst Musculoskeletal History: Reports: Back Pain, Chronic, Fracture, Osteoarthritis Other Musculoskeletal History: fx thumb Neurological History: Reports: None Psychiatric History: Reports: Anxiety, Depression Endocrine/Metabolic History: Reports: Diabetes, Type II, Hypothyroidism, Obesity /BMI 30+ Oncologic (Cancer) History: Reports: Other (See Below) Other Oncologic History: "skin cancer" Dermatologic History: Reports: None - Infectious Disease History Infectious Disease History: Reports: Chicken Pox - Past Surgical History Head Surgeries/Procedures: Reports: None HEENT Surgical History: Reports: Tonsillectomy GI Surgical History: Reports: Appendectomy, Hernia, Abdominal Other GI Surgeries/Procedures: hernia repair x6 Female Surgical History: Reports: Hysterectomy, Tubal Ligation Endocrine Surgical History: Reports: Thyroidectomy Dermatological Surgical History: Reports: Skin Biopsy Social & Family History - Family History Family Medical History: Noncontributory - Tobacco Use Smoking Status *Q: Current Every Day Smoker Years of Tobacco use: 35 Packs/Tins Daily: 1 - Caffeine Use Caffeine Use: Reports: None - Recreational Drug Use Recreational Drug Use: No - Living Situation & Occupation Living situation: Reports: Occupation: Employed ED ROS GENERAL - Review of Systems Review Of Systems: ROS reveals no pertinent complaints other than HPI. ED EXAM,LOWER BACK PAIN/INJURY - Physical Exam Exam: See Below (See dictation) Course - Vital Signs Last Recorded V/S: Last Vital Signs Temp 97.9 F 11/29/17 11:25 Pulse 97 11/29/17 11:25 Resp 18 11/29/17 11:25 BP 133/84 11/29/17 11:25 Pulse Ox 96 11/29/17 11:25 - Orders/Labs/Meds Orders: Active Orders 24 hr Category Date Time Status Lumbar Spine wo Cont [CT] Stat Exams 11/29/17 11:45 Taken Orphenadrine [Norflex] Med 11/29/17 11:45 Active 60 mg IM Q12H Medication Orders Orphenadrine Citrate (Norflex) 60 mg IM Q12H SABA Last Admin: 11/29/17 12:17 Dose: 60 mg Meds: Medications Generic Name Dose Route Start Last Admin Trade Name Freq PRN Reason Stop Dose Admin Orphenadrine Citrate 60 mg 11/29/17 11:45 11/29/17 12:17 Norflex IM 60 mg Q12H SABA Administration Discontinued Medications Generic Name Dose Route Start Last Admin Trade Name Freq PRN Reason Stop Dose Admin Ketorolac Tromethamine 60 mg 11/29/17 11:44 11/29/17 12:19 Toradol IM 11/29/17 11:45 60 mg ONETIME ONE Administration Methylprednisolone Sodium Succinate 125 mg 11/29/17 11:44 11/29/17 12:15 Solu-Medrol IM 11/29/17 11:45 125 mg ONETIME ONE Administration Departure - Departure Time of Disposition: 13:05 Disposition: Home, Self-Care 01 Clinical Impression: Back pain Qualifiers: Back pain location: low back pain Chronicity: unspecified Back pain laterality : bilateral Sciatica presence: with sciatica Sciatica laterality: bilateral sciatica Qualified Code(s): M54.42 - Lumbago with sciatica, left side Compression fracture of L3 lumbar vertebra Qualifiers: Encounter type: initial encounter Fracture type: closed Qualified Code(s): S32.030A - Wedge compression fracture of third lumbar vertebra, initial encounter for closed fracture - Discharge Information Prescriptions: Cyclobenzaprine [Flexeril] 10 mg PO TID PRN #30 tab PRN Reason: Pain traMADol [Ultram] 50 mg PO Q6H PRN #20 tab PRN Reason: Pain Instructions: Back Pain, Adult, [id number] Referrals: PCP,None [Primary Care Provider] - Forms: ED Department Discharge Additional Instructions: The following information is given to patients seen in the emergency department who are being discharged to home. This information is to outline your options for follow-up care. We provide all patients seen in our emergency department with a follow-up referral. The need for follow-up, as well as the timing and circumstances, are variable depending upon the specifics of your emergency department visit. If you don't have a primary care physician on staff, we will provide you with a referral. We always advise you to contact your personal physician following an emergency department visit to inform them of the circumstance of the visit and for follow-up with them and/or the need for any referrals to a consulting specialist. The emergency department will also refer you to a specialist when appropriate. This referral assures that you have the opportunity for follow-up care with a specialist. All of these measure are taken in an effort to provide you with optimal care, which includes your follow-up. Under all circumstances we always encourage you to contact your private physician who remains a resource for coordinating your care. When calling for follow-up care, please make the office aware that this follow-up is from your recent emergency room visit. If for any reason you are refused follow-up, please contact the [facility] Emergency Department at and asked to speak to the emergency department charge nurse. [facility] [address] [place], [place] [id number] 1. Gentle heat and stretching to the area. Please avoid being sedentary as this can cause increased pain. When resting please lie flat on your back. Add a stool softener to prevent constipation with these medications. 2. Tylenol as needed for pain management. Please take your prescribed medications as directed. They may cause drowsiness so do not take it while driving or needing to be functioning outside of the house. 3. As we discussed please make a follow-up appointment with your primary care provider for later this week. You may need further imaging for this going back pain. Return to the ED as needed and as discussed. - My Orders Last 24 Hours: My Active Orders 11/29/17 11:45 Lumbar Spine wo Cont [CT] Stat Orphenadrine [Norflex] 60 mg IM Q12H - Assessment/Plan Last 24 Hours: My Active Orders 11/29/17 11:45 Lumbar Spine wo Cont [CT] Stat Orphenadrine [Norflex] 60 mg IM Q12H
[2017-11-29 13:34] VITALS: BP 131/65
--- NOTE | 2017-11-29 17:54 | CT ---
EXAM DATE: 11/29/17 PATIENT'S AGE: 47 Patient: EDITH BLUM Facility: [place], [place] Site . Site : [id number] Study: CT Spine Lumbar WO CONT [id number] 12:37:38 PM Ordering Physician: Doctor Salinas Final Report: HISTORY: Worsening low back pain now radiating into the lower legs. TECHNIQUE: CT lumbar spine without contrast. COMPARISON: None. FINDINGS: Five lumbar type vertebral bodies. Irregularly marginated superior endplate deformity of L3 vertebral body with foci of lucency through the superior endplate cortex including linear lucency through the left lateral margin of the superior endplate cortex suspicious for his superior endplate compression fracture. No other fracture. No subluxation. No lytic or blastic bone lesions. Endplate spur throughout the spine, greatest in the lower thoracic and lumbar spine, without significant disc space narrowing. Disc bulges at L4-5 and L5-S1 with ossification along the superior margin of the herniated disc material to the left of midline extending into the foramina. No significant central canal stenosis. Moderate foraminal stenosis on the left at L4-5 and mild foraminal stenosis on the left at L5-S1. Bony neural foramina are otherwise patent. Degenerative arthrosis of both sacroiliac joints. Atherosclerotic calcifications. Surgical clips in the right upper quadrant suggestive of cholecystectomy. Rounded calculi adjacent to the surgical clips. IMPRESSION: 1. Superior endplate compression fracture of L3 versus prominent Schmorl`s node. No other acute lumbar spine abnormality. 2. Moderate foraminal stenosis on the left at L4-5. No significant central canal stenosis. 3. Probable cholecystectomy with calculi in a cystic duct remnant or the common duct. Correlate with clinical and laboratory findings of biliary obstruction. Please note that all CT scans at this facility use dose modulation, iterative reconstruction, and/or weight-based dosing when appropriate to reduce radiation dose to as low as reasonably achievable. Dictated by Jackson Martin MD @ Nov 29 2017 12:47PM (Electronic Signature) Report Signed by Proxy. [facility]
== END 2017-11-29 13:40 | disposition home or self-care (01) ==
LOC: MW.ED 11:15
DX: S32.039A Unspecified fracture of third lumbar vertebra, initial encounter for closed fracture (principal); M54.42 Lumbago with sciatica, left side; E11.9 Type 2 diabetes mellitus without complications; E66.9 Obesity, unspecified; F17.210 Nicotine dependence, cigarettes, uncomplicated; Z79.899 Other long term (current) drug therapy; E03.9 Hypothyroidism, unspecified; I10 Essential (primary) hypertension; X58.XXXA Exposure to other specified factors, initial encounter; Z88.0 Allergy status to penicillin; Z88.1 Allergy status to other antibiotic agents
CPT/HCPCS: 72131; 96372; 99283; J1885; J2360; J2930

== ENCOUNTER 2017-12-03 14:19 | Emergency (ER) | payer BC ==
--- NOTE | 2017-12-03 15:19 | EDM.PDOC ---
ED HPI GENERAL MEDICAL PROBLEM - General Chief Complaint: Back Pain or Injury Stated Complaint: BLOOD IN URINE Time Seen by Provider: 12/03/17 15:12 Source of Information: Reports: Patient History Limitations: Reports: No Limitations - History of Present Illness INITIAL COMMENTS - FREE TEXT/NARRATIVE: HISTORY AND PHYSICAL: History of present illness: Patient is a 47-year-old female here with complaint of low back pain here requesting a refill of her pain medications. Patient has a compression fracture of L3 shown on CT lumbar spine on 11/29. Patient states she does have a follow up with Dr. Jacinto on 12/08 but reports she will run out of her medications before then and is requesting a refill. Patient received #30 [place] on 11/29 and # 40 Tramadol on 11/25. She also received flexeril and a medrol dosepak on 11/29. Patient is also complaining of blood in her urine and pain with urination since yesterday. She denies any abdominal pain, nausea, vomiting, diarrhea. Review of systems: As per history of present illness and below otherwise all systems reviewed and negative. Past medical history: As per history of present illness and as reviewed below otherwise noncontributory. Surgical history: As per history of present illness and as reviewed below otherwise noncontributory. Social history: No reported history of drug or alcohol abuse. Family history: As per history of present illness and as reviewed below otherwise noncontributory. Physical exam: General: patient sitting comfortably in no acute distress. Patient is slow to sit up and bracing self. HEENT: Atraumatic, normocephalic, pupils reactive, negative for conjunctival pallor or scleral icterus, mucous membranes moist, throat clear, neck supple, nontender, trachea midline. Lungs: Clear to auscultation, breath sounds equal bilaterally, chest nontender. Heart: S1S2, regular, negative for clicks, rubs, or JVD. Abdomen: Soft, nondistended, nontender. Negative for masses or hepatosplenomegaly. Negative CVA tenderness. Pelvis: Stable nontender. Genitourinary: Deferred. Rectal: Deferred. Extremities: Atraumatic, negative for cords or calf pain. Neurovascular unremarkable. Neuro: Awake, alert, oriented. Cranial nerves II through XII unremarkable. Cerebellum unremarkable. Motor and sensory unremarkable throughout. Exam nonfocal. Notes: Diagnostics: UA Therapeutics: Toradol IM Prescriptions Cipro Impression: UTI Back pain secondary to compression fracture Plan: 1. Take antibiotic as directed for UTI 2. Continue pain medications as prescribed 3. Follow up with primary care provider Definitive disposition and diagnosis as appropriate pending reevaluation and review of above. back Pain Score (Numeric/FACES): 7 - Related Data Allergies Allergy/AdvReac Type Severity Reaction Status Date / Time erythromycin base Allergy Vomiting Verified 12/03/17 14:25 Penicillins Allergy Difficulty Verified 12/03/17 14:25 Breathing Home Meds: Home Meds Acetaminophen/HYDROcodone [Cl[place] 325-5 MG] 1 - 2 tab PO Q4H PRN 12/03/17 [ History] Ciprofloxacin HCl [Cipro] 500 mg PO BID #14 tablet 12/03/17 [Rx] Cyclobenzaprine [Flexeril] 10 mg PO TID PRN 12/03/17 [History] Levothyroxine 250 mcg PO ACBREAKFAST 12/03/17 [History] Omeprazole 2 tab PO BID 12/03/17 [History] methylPREDNISolone [Methylprednisolone] 4 mg PO ASDIRECTED 12/03/17 [History] traMADol HCl [Tramadol HCl] 50 mg PO Q6H PRN 12/03/17 [History] Past Medical History HEENT History: Reports: Allergic Rhinitis, Other (See Below) Other HEENT History: wears glasses/contacts Cardiovascular History: Reports: High Cholesterol, Hypertension Respiratory History: Reports: Sleep Apnea Other Respiratory History: uses CPAP, SOB on exertion Gastrointestinal History: Reports: Chronic Constipation, GERD Genitourinary History: Reports: Renal Calculus 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 (See Below) 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 History: abd hyst Musculoskeletal History: Reports: Back Pain, Chronic, Fracture, Osteoarthritis Other Musculoskeletal History: fx thumb Neurological History: Reports: None Psychiatric History: Reports: Anxiety, Depression Endocrine/Metabolic History: Reports: Diabetes, Type II, Hypothyroidism, Obesity /BMI 30+ Oncologic (Cancer) History: Reports: Other (See Below) Other Oncologic History: "skin cancer" Dermatologic History: Reports: None - Infectious Disease History Infectious Disease History: Reports: Chicken Pox - Past Surgical History Head Surgeries/Procedures: Reports: None HEENT Surgical History: Reports: Tonsillectomy GI Surgical History: Reports: Appendectomy, Hernia, Abdominal Other GI Surgeries/Procedures: hernia repair x6 Female Surgical History: Reports: Hysterectomy, Tubal Ligation Endocrine Surgical History: Reports: Thyroidectomy Dermatological Surgical History: Reports: Skin Biopsy Social & Family History - Family History Family Medical History: Noncontributory - Tobacco Use Smoking Status *Q: Current Every Day Smoker Years of Tobacco use: 35 Packs/Tins Daily: 1 - Caffeine Use Caffeine Use: Reports: None - Recreational Drug Use Recreational Drug Use: No - Living Situation & Occupation Living situation: Reports: Occupation: Employed ED ROS GENERAL - Review of Systems Review Of Systems: ROS reveals no pertinent complaints other than HPI. ED EXAM,LOWER BACK PAIN/INJURY - Physical Exam Exam: See Below (see dictation) Course - Vital Signs Last Recorded V/S: Last Vital Signs Temp 35.4 C 12/03/17 14:25 Pulse 105 H 12/03/17 14:25 Resp 20 12/03/17 14:25 BP 136/88 12/03/17 14:25 Pulse Ox 94 L 12/03/17 14:25 - Orders/Labs/Meds Orders: Active Orders 24 hr Category Date Time Status CULTURE URINE [RM] Stat Lab 12/03/17 15:49 Ordered UA W/MICROSCOPIC [URIN] Stat Lab 12/03/17 14:45 Ordered Labs: Laboratory Tests 12/03/17 Range/Units 14:45 Urine Color DARK YELLOW Urine Appearance SLT CLOUDY Urine pH 6.0 (5.0-8.0) Ur Specific Lackey 1.025 (1.001-1.035) Urine Protein 30 (NEGATIVE) mg/dL Urine Glucose (UA) NEGATIVE (NEGATIVE) mg/dL Urine Ketones NEGATIVE (NEGATIVE) mg/dL Urine Occult Blood LARGE H (NEGATIVE) Urine Nitrite POSITIVE H (NEGATIVE) Urine Bilirubin NEGATIVE (NEGATIVE) Urine Urobilinogen 0.2 (<2.0) EU/dL Ur Leukocyte Esterase MODERATE (NEGATIVE) Urine RBC 10-20 (0-2/HPF) Urine WBC TO NUMEROU (0-5/HPF) Ur Epithelial Cells MODERATE (NONE-FEW) Urine Bacteria 3+ H (NEGATIVE) Departure - Departure Time of Disposition: 15:54 Disposition: Home, Self-Care 01 Condition: Good Clinical Impression: UTI (urinary tract infection), Compression fracture - Discharge Information Prescriptions: Ciprofloxacin HCl [Cipro] 500 mg PO BID #14 tablet Referrals: PCP,None [Primary Care Provider] - Forms: ED Department Discharge Additional Instructions: The following information is given to patients seen in the emergency department who are being discharged to home. This information is to outline your options for follow-up care. We provide all patients seen in our emergency department with a follow-up referral. The need for follow-up, as well as the timing and circumstances, are variable depending upon the specifics of your emergency department visit. If you don't have a primary care physician on staff, we will provide you with a referral. We always advise you to contact your personal physician following an emergency department visit to inform them of the circumstance of the visit and for follow-up with them and/or the need for any referrals to a consulting specialist. The emergency department will also refer you to a specialist when appropriate. This referral assures that you have the opportunity for follow-up care with a specialist. All of these measure are taken in an effort to provide you with optimal care, which includes your follow-up. Under all circumstances we always encourage you to contact your private physician who remains a resource for coordinating your care. When calling for follow-up care, please make the office aware that this follow-up is from your recent emergency room visit. If for any reason you are refused follow-up, please contact the [facility] Emergency Department at and asked to speak to the emergency department charge nurse. [facility] [address] [place] [id number] 1. Take antibiotic as directed for UTI 2. Continue pain medications as prescribed 3. Follow up with primary care provider - My Orders Last 24 Hours: My Active Orders 12/03/17 14:45 UA W/MICROSCOPIC [URIN] Stat 12/03/17 15:49 CULTURE URINE [RM] Stat - Assessment/Plan Last 24 Hours: My Active Orders 12/03/17 14:45 UA W/MICROSCOPIC [URIN] Stat 12/03/17 15:49 CULTURE URINE [RM] Stat
[2017-12-03] MEDS ORDERED: Ketorolac 60 MG/2 ML SDV IM ONE (15:53)
[2017-12-03 16:37] VITALS: BP 142/90
== END 2017-12-03 16:34 | disposition home or self-care (01) ==
LOC: MW.ED 14:19
DX: S32.039A Unspecified fracture of third lumbar vertebra, initial encounter for closed fracture (principal); N39.0 Urinary tract infection, site not specified; R31.9 Hematuria, unspecified; I10 Essential (primary) hypertension; E78.00 Pure hypercholesterolemia, unspecified; E11.9 Type 2 diabetes mellitus without complications; E03.9 Hypothyroidism, unspecified; F41.9 Anxiety disorder, unspecified; F32.9 Major depressive disorder, single episode, unspecified; K21.9 Gastro-esophageal reflux disease without esophagitis; F17.210 Nicotine dependence, cigarettes, uncomplicated; Z88.1 Allergy status to other antibiotic agents; Z88.0 Allergy status to penicillin; X58.XXXA Exposure to other specified factors, initial encounter
CPT/HCPCS: 81001; 87086; 87088; 87186; 96372; 99283; J1885

== ENCOUNTER → 2018-01-06 | Day surgery (SDC) | payer BC ==
[~2018-01-06] MED LIST: Betamethasone Acetate/Betamethasone Sod Phosphate 30 MG/5 ML MDV ONE; Iopamidol 408 MG/ML 50 ML SDV ONE; Lidocaine 2% 5 ML SDV ONE; Ropivacaine 0.5% 5 MG/ML 30 ML SDV ONE
--- NOTE | 2018-01-07 11:32 | OR ---
SURGEON: Carline Yates D.O. DATE OF PROCEDURE: 01/06/2018 OR STAFF PRESENT: 1. Juan David Jacome RN. 2. Ronnie Fernandes RN. 3. RT Bassam. WOUND CLASS: I. PREOPERATIVE DIAGNOSES: 1. Lumbar degenerative disk disease.L1-2 through L5-S1 2. Lumbar herniated disk. 3. Lumbar radiculopathy. 4. Lumbar spinal stenosis. 5. Lumbar compression fractures at L2 and L4. POSTOPERATIVE DIAGNOSES: 1. Lumbar degenerative disk disease (L1-2, L2-3, L3-4, L4-5, and L5-S1.) 2. Lumbar herniated disk. 3. Lumbar radiculopathy. 4. Lumbar spinal stenosis. 5. Lumbar compression fractures at L2 and L4. PROCEDURES PERFORMED: Caudal epidural steroid injection fluoroscopic guidance for needle placement, local with oral valium for sedation. PREOPERATIVE PAIN: 10+/10. POSTOPERATIVE PAIN: 6/10. FOLLOWUP: In pain clinic in 3 weeks. SCREENING QUESTIONS: The patient answered "no" to all of the following questions: 1. Are you allergic to latex? 2. Do you have a bleeding disorder? 3. Do you have any current local or systemic infections? 4. Are you taking any anti-inflammatories or blood thinners? 5. Do you have any joint replacements, heart valve replacements, or a pacemaker? DESCRIPTION OF PROCEDURE: The patient had the procedure thoroughly explained including all possible risks, benefits and alternatives. Consent was signed in my clinic indicating understanding and willingness to proceed. The patient presented to [facility] and was escorted to the dressing room to disrobe and change into a hospital gown. Preoperative vital signs were taken and stable. The patient reported that Valium was taken prior to the procedure. The patient was brought back to the procedure room and placed in the prone position on the procedure room table. A pillow was placed under the hips in order to flatten the lumbar lordosis. The back was prepped with ChloraPrep and sterilely draped. All personnel in the operating room were dressed in appropriate attire including surgical scrubs, head and shoe covers. This was to ensure sterility while in the treatment room. During the time fluoroscopy was in use, all personnel in the operating room wore lead bishop with thyroid collars. Sterile technique was used throughout the procedure. The patient was awake and conversant throughout the procedure. There was no evidence of infection at the site of needle insertion. Skeletal landmarks were identified under fluoroscopy for the caudal epidural. Skin was anesthetized with 2% lidocaine with a sterile 27-gauge 1.5 inch needle. Then a 20-gauge Tuohy epidural needle was placed in the epidural space with loss of resistance technique under fluoroscopic guidance. No heme, cerebrospinal fluid, or paresthesias were noted. Isovue-200 contrast dye was injected in 0.2 cubic centimeter increments and seen to outline the epidural space in both AP and lateral views. There was no intravascular flow pattern observed under live fluoroscopy. Then 12 milligrams of Celestone and local was slowly injected after negative aspiration. The patient tolerated the procedure well. Vital signs were stable during and after the procedure. The staff escorted the patient to the recovery area and the patient was released in stable condition after a brief stay in the recovery room monitored by the nurse. The patient was given both oral and written discharge and follow up instructions with recommendation to follow up given for 3 weeks. The patient voiced understanding including understanding of those signs and symptoms that would require emergency care. The patient knows how to contact the office if there are any additional problems or questions in the meantime. JOSE / NOMI /[id number] MTDD
== END ==
LOC: MW.SDS 11:49
PROVIDERS: ATTEND Anesthesiology
DX: M51.16 Intervertebral disc disorders with radiculopathy, lumbar region (principal); M48.061 Spinal stenosis, lumbar region without neurogenic claudication; M51.37 Other intervertebral disc degeneration, lumbosacral region; M47.26 Other spondylosis with radiculopathy, lumbar region; M48.56XA Collapsed vertebra, not elsewhere classified, lumbar region, initial encounter for fracture; I10 Essential (primary) hypertension; E66.9 Obesity, unspecified; Z68.31 Body mass index [BMI] 31.0-31.9, adult; E11.42 Type 2 diabetes mellitus with diabetic polyneuropathy; F17.210 Nicotine dependence, cigarettes, uncomplicated; M79.1 Myalgia; F41.9 Anxiety disorder, unspecified; F32.9 Major depressive disorder, single episode, unspecified; E78.5 Hyperlipidemia, unspecified; K21.9 Gastro-esophageal reflux disease without esophagitis; M17.11 Unilateral primary osteoarthritis, right knee; Z79.4 Long term (current) use of insulin; Z79.899 Other long term (current) drug therapy; Z88.5 Allergy status to narcotic agent; Z88.0 Allergy status to penicillin; Z98.84 Bariatric surgery status
CPT/HCPCS: 62323; J0702; J2795; Q9966

== ENCOUNTER 2018-07-15 07:52 | Day surgery (SDC) | payer BC ==
[~2018-07-15 07:52] MED LIST changes: -Betamethasone Acetate/Betamethasone Sod Phosphate 30 MG/5 ML MDV ONE; +Bupivacaine 0.25%/EPINEPHrine 1:200,000 10 ML SDV ONE; +Clindamycin Phosphate in D5W 50 ML ONE; -Iopamidol 408 MG/ML 50 ML SDV ONE; +Midazolam 1 MG/ML 2 ML SDV ONE; +Propofol 200 MG/20 ML SDV ONE; -Ropivacaine 0.5% 5 MG/ML 30 ML SDV ONE; +fentaNYL 100 MCG/2 ML SDV ONE
[2018-07-15] MEDS ORDERED: Bupivacaine 0.25%/EPINEPHrine 1:200,000 10 ML SDV INJECT ONE (08:00)
[2018-07-15] MEDS ORDERED: Lactated Ringers 1,000 ML IV SCH (08:00)
--- NOTE | 2018-07-15 08:35 | PCM.PREANE ---
Preanesthetic Assessment - Anesthesia/Transfusion/Family Hx Anesthesia History: Prior Anesthesia Reaction Type of Anesthesia Reaction: Anesthesia Awareness (1998 - awake while paralyzed/ eyes taped during hysterectomy; 2000 - awoke during hernia, but states not as bad as hysterectomy experience; "high tolerance") Family History of Anesthesia Reaction: No Transfusion History: No Prior Transfusion(s) Intubation History: Unknown - Review of Systems General: No Symptoms Pulmonary: Sputum Cardiovascular: No Symptoms Gastrointestinal: No Symptoms Neurological: No Symptoms Other: Reports: None - Physical Assessment NPO Status Date: 07/15/18 NPO Status Time: 00:00 Height: 5 ft 5 in Weight: 169 lb ASA Class: 3 Mental Status: Alert & Oriented x3 Airway Class: Mallampati = 3 Dentition: Reports: Dentures (top plate) Thyro-Mental Finger Breadths: 2 (recessed chin) Mouth Opening Finger Breadths: 3 Lungs: Clear to Auscultation, Normal Respiratory Effort Cardiovascular: Regular Rate, Regular Rhythm - Allergies Allergies/Adverse Reactions: Allergies Allergy/AdvReac Type Severity Reaction Status Date / Time erythromycin base Allergy Vomiting Verified 07/12/18 11:47 morphine Allergy Other Verified 07/12/18 11:47 Penicillins Allergy Difficulty Verified 07/12/18 11:47 Breathing - Blood Blood Available: No Product(s) Available: None - Anesthesia Plan Free Text/Narrative:: Pt understands a MAC with moderate to deep sedation with local per surgeon is planned. Pt is aware that it would be normal for her to awake and she would be able to request more medication if she needs it. She is at ease with this and understands that her eyes will not be taped, nor paralytic used and does not have the expectation of a general anesthetic. - Acknowledgements Anesthesia Type Planned: MAC Pt an Appropriate Candidate for the Planned Anesthesia: Yes Alternatives and Risks of Anesthesia Discussed w Pt/Guardian: Yes Pt/Guardian Understands and Agrees with Anesthesia Plan: Yes PreAnesthesia Questionnaire HEENT History: Reports: Allergic Rhinitis, Other (See Below) Other HEENT History: wears glasses/contacts, has upper denture Cardiovascular History: Reports: MT Other Cardiovascular History: states had MT last year "most likely during gastric sleeve surgery in [place]"- identified after the fact Respiratory History: Reports: Sleep Apnea Other Respiratory History: uses CPAP, SOB on exertion Gastrointestinal History: Reports: Chronic Constipation, GERD (takes omeprazole and well controlled - no problems this AM) Genitourinary History: Reports: Renal Calculus [employer] History: Reports: Other (See Below) Other OB/BYN History: abd hyst Musculoskeletal History: Reports: Back Pain, Chronic, Fracture, Osteoarthritis Other Musculoskeletal History: fx thumb (right), hx of fx foot and 6 vertebrate Neurological History: Reports: None Psychiatric History: Reports: Anxiety, Depression Endocrine/Metabolic History: Reports: Diabetes, Type II, Hypothyroidism (total thyroidectomy) Other Endocrine/Metabolic History: no medication for Diabetes for 1 year - since gastric sleeve Oncologic (Cancer) History: Reports: Other (See Below) Other Oncologic History: "skin cancer" on face Dermatologic History: Reports: None - Infectious Disease History Infectious Disease History: Reports: Chicken Pox - Past Surgical History Head Surgeries/Procedures: Reports: None HEENT Surgical History: Reports: Adenoidectomy, Tonsillectomy GI Surgical History: Reports: Appendectomy, Bariatric Procedure, Cholecystectomy , Hernia, Abdominal Other GI Surgeries/Procedures: hernia repair x6 Female Surgical History: Reports: Hysterectomy, Lithotripsy/ESWL, Tubal Ligation Endocrine Surgical History: Reports: Thyroidectomy Musculoskeletal Surgical History: Reports: ORIF Other Musculoskeletal Surgeries/Procedures:: right hand (thumb) Dermatological Surgical History: Reports: Skin Biopsy - SUBSTANCE USE Smoking Status *Q: Current Every Day Smoker Tobacco Use Within Last Twelve Months: Cigarettes Recreational Drug Use History: No - HOME MEDS Home Medications: Home Meds Levothyroxine 275 mcg PO ACBREAKFAST 12/03/17 [History] Omeprazole 40 mg PO BEDTIME 12/03/17 [History] traMADol HCl [Tramadol HCl] 50 - 100 mg PO Q6H PRN 12/03/17 [History] Cyclobenzaprine [Flexeril] 10 mg PO TID 07/12/18 [History] FLUoxetine HCl [Prozac] 40 mg PO DAILY 07/12/18 [History] Gabapentin [Neurontin] 300 mg PO QAM 07/12/18 [History] Gabapentin [Neurontin] 900 mg PO BEDTIME 07/12/18 [History] Hydrocodone/Acetaminophen [Hydrocodon-Acetaminophn 10-325] 1 tab PO ASDIRECTED PRN 07/12/18 [History] Ketamine Hcl [Ketamine Nasal [place] Compound] 1 spray DERIK ASDIRECTED PRN [History] Omeprazole 20 mg PO QAM 07/12/18 [History] Zolpidem Tartrate [Ambien] 10 mg PO BEDTIME 07/12/18 [History] - CURRENT (IN HOUSE) MEDS Current Meds: Current Medications Lactated Ringer's (Ringers, Lactated) 1,000 mls @ 125 mls/hr IV ASDIRECTED SABA Clindamycin Phosphate 600 mg/ (Premix) 50 mls @ 100 mls/hr IV ONETIME ONE Stop: 07/20/18 09:29 Discontinued Medications Bupivacaine HCl/Epinephrine Bitart (Marcaine 0.25%/Epinephrine 1:200,000) 10 ml INJECT ONETIME ONE Stop: 07/15/18 08:01 Bupivacaine HCl/Epinephrine Bitart (Marcaine 0.25%/Epinephrine 1:200,000) Confirm Administered Dose 10 ml .ROUTE .STK-MED ONE Stop: 07/15/18 07:35 Fentanyl (Sublimaze) Confirm Administered Dose 100 mcg .ROUTE .STK-MED ONE Stop: 07/15/18 07:32 Clindamycin Phosphate (Cleocin In D5w) Confirm Administered Dose 50 mls @ as directed .ROUTE .STK-MED ONE Stop: 07/15/18 07:15 Lidocaine (Xylocaine-Mpf 2%) Confirm Administered Dose 5 ml .ROUTE .STK-MED ONE Stop: 07/15/18 07:31 Midazolam HCl (Versed 1 Mg/Ml) Confirm Administered Dose 2 mg .ROUTE .STK-MED ONE Stop: 07/15/18 07:32 Propofol (Diprivan 20 Ml) Confirm Administered Dose 400 mg .ROUTE .STK-MED ONE Stop: 07/15/18 07:31
[2018-07-15] MEDS ORDERED: fentaNYL 100 MCG/2 ML SDV ONE (09:26)
[2018-07-15] MEDS ORDERED: Ketamine 500 mg/10 ML MDV ONE (09:55)
--- NOTE | 2018-07-15 10:23 | PCM48HPAN ---
Post Anesthesia Note - EVALUATION WITHIN 48HRS OF ANESTHETIC Vital Signs in Normal Range: Yes Patient Participated in Evaluation: Yes Respiratory Function Stable: Yes Airway Patent: Yes Cardiovascular Function Stable: Yes Hydration Status Stable: Yes Pain Control Satisfactory: Yes Nausea and Vomiting Control Satisfactory: Yes Mental Status Recovered: Yes Resp Rate: 16 - COMMENTS/OBSERVATIONS Free Text/Narrative:: direct back to phase 2 recovery
[2018-07-15] MEDS ORDERED: Ketorolac 30 MG/ML SDV ONE (10:24)
[2018-07-15] MEDS ORDERED: Acetaminophen/HYDROcodone 325-5 MG Tab PO PRN (10:31)
[2018-07-15] MEDS ORDERED: Bupivacaine 0.25%/EPINEPHrine 1:200,000 10 ML SDV ONE (11:41)
[2018-07-15 11:43] VITALS: BP 164/89
--- NOTE | 2018-07-15 15:44 | PCM.OPNOTE ---
- General Post-Op/Procedure Note Date of Surgery/Procedure: 07/15/18 Operative Procedure(s): left cubital and carpal tunnel release Pre Op Diagnosis: left cubital and carpal tunnel syndrome Post-Op Diagnosis: Same Anesthesia Technique: Local, MAC Primary Surgeon: Padmini Zarco Slps: Yi Garcia Complications: None Condition: Good
--- NOTE | 2018-07-16 16:45 | OR ---
SURGEON: HEATHER FONG MD DATE OF PROCEDURE: 07/15/2018 PREOPERATIVE DIAGNOSIS: Left cubital and carpal tunnel syndrome. POSTOPERATIVE DIAGNOSIS: Left cubital and carpal tunnel syndrome. PROCEDURE: 1. Left cubital tunnel release. 2. Left carpal tunnel release. ANESTHESIA: Local MAC. SALES ASSISTANT: GRADY Dey. REASON FOR AND ROLE OF SALES ASSISTANT: Retraction, prepping, draping, positioning and closure assistance. INDICATIONS: Ms. Garcia is a 48-year-old female, seen today in evaluation for left cubital and carpal tunnel releases. Risks and benefits were discussed with her including, but not limited to, bleeding, infection, damage to underlying or overlying structures, possible need for future interventions, possible scarring. PROCEDURE IN DETAIL: After informed consent was obtained and placed on the chart, the patient was brought to the operating theater and laid in supine position. After adequate local MAC anesthesia was obtained, the area was prepped and draped and a time- out was completed to confirm side and site. Attention was then paid to release of the left carpal tunnel. After exsanguination of the arm and insufflation of the tourniquet to 200 mmHg, the area was dissected using a #15 blade. Dissection through the skin and subcutaneous tissues was completed until breach of the ligament and then dissection distally and proximally was completed under direct visualization using a Littler scissor. Once adequately released, the area was copiously irrigated and closed using 5-0 nylon stitch in a horizontal mattress fashion. Attention was then paid to the left elbow area and a curved incision was made directly over the cubital tunnel. Dissection was carried down until location of the nerve. Care was taken greatly to protect any cutaneous branches and the cubital tunnel itself was breached. Dissection was then carried proximally up into the upper arm in order to ensure complete release here. Then, dissection was carried distally. The cubital tunnel was quite tight and the nerve was quite compressed. Dissection was then carried distally until release of the flexor carpi ulnaris leading edge. A finger was passed both distally and proximally to ensure complete release. Once this was done, minimal neurolysis was completed for some scar tissue around the nerve. Then, the area was copiously irrigated. The tourniquet was desufflated. Meticulous hemostasis was obtained. The wound was closed using a deep 4-0 Monocryl and a running 4-0 subcuticular for the skin. The wound was dressed with Steri-Strips. The patient tolerated this well. All counts and needles were correct at the end of the case. FOLLOWUP INSTRUCTIONS: The patient will see us in 2 weeks, sooner with any problems, questions, or concerns. She was given a prescription for [place] for pain control. Discharged home in stable condition. HERADHA / NOMI /[id number]
[2018-07-20] MEDS ORDERED: Clindamycin Phosphate in D5W 600 MG in Premix Bag 1 BAG IV ONE ×2 (09:00)
== END 2018-07-15 11:38 | disposition home or self-care (01) ==
LOC: MW.SDS 07:52
PROVIDERS: ATTEND Plastic Surgery
DX: G56.22 Lesion of ulnar nerve, left upper limb (principal); G56.02 Carpal tunnel syndrome, left upper limb; E11.42 Type 2 diabetes mellitus with diabetic polyneuropathy; I10 Essential (primary) hypertension; F17.210 Nicotine dependence, cigarettes, uncomplicated; E03.9 Hypothyroidism, unspecified; E66.9 Obesity, unspecified; Z68.28 Body mass index [BMI] 28.0-28.9, adult; F32.9 Major depressive disorder, single episode, unspecified; F41.9 Anxiety disorder, unspecified; Z79.4 Long term (current) use of insulin; Z79.890 Hormone replacement therapy; Z88.1 Allergy status to other antibiotic agents; Z88.0 Allergy status to penicillin
CPT/HCPCS: 64718; 64721; A9270; J2001; J2250; J2704; J3010; J3490; J7120

== ENCOUNTER 2018-11-15 11:13 | Day surgery (SDC) | payer BC ==
[~2018-11-15 11:13] MED LIST changes: -Bupivacaine 0.25%/EPINEPHrine 1:200,000 10 ML SDV ONE; +Clindamycin Phosphate in D5W 300 MG in Premix Bag 1 BAG IV ONE; -Clindamycin Phosphate in D5W 50 ML ONE; -Lidocaine 2% 5 ML SDV ONE; -Midazolam 1 MG/ML 2 ML SDV ONE; -Propofol 200 MG/20 ML SDV ONE; -fentaNYL 100 MCG/2 ML SDV ONE
[2018-11-15] MEDS ORDERED: Midazolam 1 MG/ML 2 ML SDV ONE (11:29)
[2018-11-15] MEDS ORDERED: Propofol 200 MG/20 ML SDV ONE (11:29)
[2018-11-15] MEDS ORDERED: fentaNYL 100 MCG/2 ML SDV ONE (11:29)
[2018-11-15] MEDS ORDERED: Ondansetron 4 MG/2 ML SDV ONE (11:29)
--- NOTE | 2018-11-15 12:13 | PCM.PREANE ---
Preanesthetic Assessment - Anesthesia/Transfusion/Family Hx Anesthesia History: Prior Anesthesia Reaction Family History of Anesthesia Reaction: No Transfusion History: No Prior Transfusion(s) Intubation History: Unknown - Review of Systems General: No Symptoms Pulmonary: No Symptoms Cardiovascular: No Symptoms Gastrointestinal: No Symptoms Neurological: No Symptoms Other: Reports: None - Physical Assessment O2 Sat by Pulse Oximetry: 95 Respiratory Rate: 16 Vital Signs: Last Vital Signs Temp 36.5 C 11/15/18 11:35 Pulse 80 11/15/18 11:35 Resp 16 11/15/18 11:35 BP 162/100 H 11/15/18 11:35 Pulse Ox 95 11/15/18 11:35 Height: 5 ft 5 in Weight: 75.296 kg ASA Class: 3 Mental Status: Alert & Oriented x3 Airway Class: Mallampati = 2 Dentition: Reports: Normal Dentition, Partial (upper) Thyro-Mental Finger Breadths: 2 Mouth Opening Finger Breadths: 3 ROM/Head Extension: Limited/Partial Lungs: Clear to Auscultation, Normal Respiratory Effort Cardiovascular: Regular Rate, Regular Rhythm - Allergies Allergies/Adverse Reactions: Allergies Allergy/AdvReac Type Severity Reaction Status Date / Time erythromycin base Allergy Vomiting Verified 11/11/18 15:35 morphine Allergy Other Verified 11/11/18 15:35 Penicillins Allergy Difficulty Verified 11/11/18 15:35 Breathing - Blood Blood Available: No - Anesthesia Plan Pre-Op Medication Ordered: None - Acknowledgements Anesthesia Type Planned: MAC Pt an Appropriate Candidate for the Planned Anesthesia: Yes Alternatives and Risks of Anesthesia Discussed w Pt/Guardian: Yes Pt/Guardian Understands and Agrees with Anesthesia Plan: Yes PreAnesthesia Questionnaire HEENT History: Reports: Allergic Rhinitis, Other (See Below) Other HEENT History: wears glasses/contacts, has upper denture Cardiovascular History: Reports: IN Other Cardiovascular History: h/o HTN and high cholesterol- ok since loosing 100 lb. after gastric sleeve surgery. she had an IN 1 year ago- no heart damage , no medications, no stent, no follow up. Respiratory History: Reports: Sleep Apnea Other Respiratory History: uses CPAP, denies COPD but uses inhalers when SOB Gastrointestinal History: Reports: Chronic Constipation, GERD Genitourinary History: Reports: Renal Calculus [employer] SAL[employer] History: Reports: Other (See Below) Other OB/BYN History: abd hyst Musculoskeletal History: Reports: Arthritis, Back Pain, Chronic Other Musculoskeletal History: hx of degenerative disc disease, hx of 6 fx vertebrate Neurological History: Reports: Migraines, Neuropathy, Diabetic Psychiatric History: Reports: Anxiety, Depression Endocrine/Metabolic History: Reports: Diabetes, Type II, Hypothyroidism Other Endocrine/Metabolic History: has not required medication for diabetes siince weight loss Oncologic (Cancer) History: Reports: Breast Other Oncologic History: skin cancer removed from face- unknown type Dermatologic History: Reports: None - Infectious Disease History Infectious Disease History: Reports: Chicken Pox - Past Surgical History Head Surgeries/Procedures: Reports: None HEENT Surgical History: Reports: Tonsillectomy GI Surgical History: Reports: Appendectomy, Bariatric Procedure (06/27), Cholecystectomy, Other (See Below) (hernia repair) Female Surgical History: Reports: Breast Biopsy, Hysterectomy, Lithotripsy/ ESWL, Tubal Ligation Endocrine Surgical History: Reports: Thyroidectomy Neurological Surgical History: Reports: Discectomy, Lumbar Spine Other Neurological Surgeries/Procedures: Microdiscectomy L4-5 Musculoskeletal Surgical History: Reports: Carpal Tunnel, Other (See Below) Other Musculoskeletal Surgeries/Procedures:: ulnar nerve surgery Oncologic Surgical History: Reports: Lumpectomy - SUBSTANCE USE Smoking Status *Q: Current Every Day Smoker (1/2 ppd) Tobacco Use Within Last Twelve Months: Cigarettes Recreational Drug Use History: No - HOME MEDS Home Medications: Home Meds Levothyroxine 275 mcg PO ACBREAKFAST 12/03/17 [History] Omeprazole 40 mg PO BEDTIME 12/03/17 [History] traMADol HCl [Tramadol HCl] 50 - 100 mg PO Q6H PRN 12/03/17 [History] Cyclobenzaprine [Flexeril] 5 - 10 mg PO BEDTIME 07/12/18 [History] FLUoxetine HCl [Prozac] 40 mg PO DAILY 07/12/18 [History] Gabapentin [Neurontin] 900 mg PO QID 07/12/18 [History] Omeprazole 20 mg PO QAM 07/12/18 [History] Zolpidem Tartrate [Ambien] 5 - 10 mg PO BEDTIME PRN 07/12/18 [History] Albuterol Sulfate [Albuterol Sulfate Hfa] 2 puff INH QID PRN 11/11/18 [History] Albuterol Sulfate [Proair Hfa] 2 puff INH QID PRN 11/11/18 [History] [place] And Stretch 1 spray TOP TID PRN 11/11/18 [History] Hydrocodone/Acetaminophen [Hydrocodon-Acetaminophn 10-325] 1 tab PO Q6HR PRN 05/31 [History] Ketamine HCl [Ketamine Hydrochloride] 1 dose TOP ASDIRECTED PRN 11/11/18 [ History] Ketamine HCl [Ketamine Hydrochloride] 1 dose TOP ASDIRECTED PRN 11/11/18 [ History] Ketamine HCl in Sterile Water [Ketamine 50 mg/ml-Water Syring] 50 mg IM ASDIRECTED PRN 11/11/18 [History] Magnesium Citrate 100 mg PO ASDIRECTED PRN 11/11/18 [History] Magnesium Citrate [Citrate of Magnesia] 1 dose PO ASDIRECTED PRN 11/11/18 [ History] - CURRENT (IN HOUSE) MEDS Current Meds: Current Medications Discontinued Medications Fentanyl (Sublimaze) Confirm Administered Dose 100 mcg .ROUTE .STK-MED ONE Stop: 11/15/18 11:30 Clindamycin Phosphate 300 mg/ (Premix) 50 mls @ 96.154 mls/hr IV ONETIME ONE Stop: 11/14/18 17:35 Midazolam HCl (Versed 1 Mg/Ml) Confirm Administered Dose 2 mg .ROUTE .STK-MED ONE Stop: 11/15/18 11:30 Ondansetron HCl (Zofran) Confirm Administered Dose 4 mg .ROUTE .STK-MED ONE Stop: 11/15/18 11:30 Propofol (Diprivan 20 Ml) Confirm Administered Dose 200 mg .ROUTE .STK-MED ONE Stop: 11/15/18 11:30
[2018-11-15] MEDS ORDERED: Lactated Ringers 1,000 ML IV SCH (12:30)
[2018-11-15] MEDS ORDERED: Clindamycin Phosphate in D5W 300 MG in Premix Bag 1 BAG IV ONE ×2 (12:30)
[2018-11-15] MEDS ORDERED: Lidocaine 2% 5 ML SDV ONE (13:09)
--- NOTE | 2018-11-15 14:23 | PCM.POSTAN ---
POST ANESTHESIA ASSESSMENT - MENTAL STATUS Mental Status: Alert, Oriented - RESPIRATORY Respiratory Status: Respiratory Rate WNL, Airway Patent, O2 Saturation Stable - CARDIOVASCULAR CV Status: Pulse Rate WNL, Blood Pressure Stable - GASTROINTESTINAL GI Status: No Symptoms - PAIN Pain Score: 0 - POST OP HYDRATION Hydration Status: Adequate & Stable - OBSERVATIONS Free Text/Narrative:: No anesthesia problems, patient skipped recovery room stage of postoperative care.
[2018-11-15 14:36] VITALS: BP 151/78; PULSE 73
--- NOTE | 2018-11-15 16:40 | OR ---
SURGEON: Carline Yates D.O. DATE OF PROCEDURE: 11/15/2018 PRIMARY SURGEON: Carline Yates D.O. ASSISTANTS: OR staff present: 1. Ronnie Velez RN. 2. Juan David Keating RN. 3. Donald Newman RN. 4. Liliya Clifton CST. 5. Dat Price [employer] clinical termite control representative. 6. RT Bassam. 7. Ronnie Holt CRNA. WOUND CLASS: I. PREOPERATIVE DIAGNOSES: 1. Failed back surgery syndrome. 2. Chronic low back pain with radiculopathy. 3. Lumbar neuropathic pain. POSTOPERATIVE DIAGNOSES: 1. Failed back surgery syndrome. 2. Chronic low back pain with radiculopathy. 3. Lumbar neuropathic pain. PROCEDURE PERFORMED: 1. Infinion 16, 50 cm, 16 contact trial lead to the top of T7 on the right- [place] [employer] 2. Infinion 16, 50 cm, 16 contact trial lead to the top of T7 on the left. 3. Fluoroscopic guidance for needle placement. 4. Local with oral Valium for sedation. ANESTHESIA: Local with sedation. SCREENING QUESTIONS: The patient answered no to all the following questions: 1. Are you allergic to iodine, Betadine, or latex? 2. Do you have a bleeding disorder? 3. Are you on anti-inflammatories or blood thinners? 4. Are you ? 5. Do you have any current local or systemic infections? 6. Do you have any joint replacements, heart valve replacements or a pacemaker? DESCRIPTION OF PROCEDURE: The patient had the procedure thoroughly explained including risks, benefits, and alternatives. Consent was signed in my clinic indicating understanding and willingness to proceed. The patient presented to [facility] and was escorted to the dressing room to disrobe and change into a hospital gown. Preoperative history and screening were performed by the nurse. Vital signs were taken and stable. The patient was set up with an IV prior to the procedure. The patient was brought back to the procedure room and placed in the prone position on the procedure room table. A pillow was placed under the abdomen in order to flatten the lumbar lordosis. The patient was positioned comfortably and there was no evidence of infection at the sites of needle insertion. The back was prepped with ChloraPrep and sterilely draped. All personnel in the operating room were dressed in appropriate attire including surgical scrubs, head and shoe covers. This was to ensure sterility while in the treatment room. During the time fluoroscopy was in use, all personnel in the operating room wore lead bishop with thyroid collars. Sterile technique was used during the procedure. Prior to the start of the procedure, prophylactic antibiotic was administered IV. Skeletal landmarks were identified under fluoroscopic guidance. At all insertion sites, the skin and soft tissues were anesthetized with 2% lidocaine preservative-free with a sterile 27-gauge 1-1/2 inch needle. The epidural space was entered with a 14-gauge Tuohy epidural needle with loss-of- resistance. Under live fluoroscopic guidance, the 16 standard [employer] contact lead electrodes were advanced approximately to the midline at the middle of the T7 vertebral body on the left and then the right. No CSF, no heme, no paresthesia were noted. Testing by the neuromodulation clinical specialist revealed appropriate coverage of the patient's normal areas of pain. The leads were then secured to the skin with occlusive dressing. No complications were noted throughout the procedure and vital signs were stable. Then the patient was brought to the recovery room in stable condition. At that time, the patient had additional stimulation patterns programmed which covered all the normal areas of pain. The patient tolerated the procedure well and was released home with postoperative instructions for followup in the clinic. The patient will fill out a pain diary throughout the week of the spinal cord stimulator trial. Additionally, prior to discharge, postoperative instructions were given to the patient and the patient voiced understanding, including understanding of those signs and symptoms that would require emergency care. PREOPERATIVE PAIN: 5-8/10. POSTOPERATIVE PAIN: 0/10. FOLLOWUP: Follow up in the Pain Clinic tomorrow for re-programming. HOGODELL / NOMI /[id number] QUE
--- NOTE | 2018-11-15 18:15 | CR ---
COMPARISON: CXR are 11/10/2018. - FINDINGS: Intraoperative fluoroscopic support provided. Six spot fluoroscopic images demonstrate placement of a spinal stimulator device, incompletely imaged. A total of 193 seconds fluoroscopy time was utilized. Please see the procedure note for additional details. Dictated by Liban Lepe MD @ Nov 15 2018 6:11PM Signed by Dr. Liban Lepe @ Nov 15 2018 6:13PM
== END 2018-11-15 16:00 | disposition home or self-care (01) ==
LOC: MW.SDS 11:13
PROVIDERS: ATTEND Anesthesiology
DX: G89.29 Other chronic pain (principal); M54.5 Low back pain; M96.1 Postlaminectomy syndrome, not elsewhere classified; M51.16 Intervertebral disc disorders with radiculopathy, lumbar region; M48.061 Spinal stenosis, lumbar region without neurogenic claudication; M47.26 Other spondylosis with radiculopathy, lumbar region; M79.18 Myalgia, other site; M17.11 Unilateral primary osteoarthritis, right knee; M48.50XA Collapsed vertebra, not elsewhere classified, site unspecified, initial encounter for fracture; M79.2 Neuralgia and neuritis, unspecified; I10 Essential (primary) hypertension; E11.42 Type 2 diabetes mellitus with diabetic polyneuropathy; E78.00 Pure hypercholesterolemia, unspecified; E03.9 Hypothyroidism, unspecified; E55.9 Vitamin D deficiency, unspecified; K21.9 Gastro-esophageal reflux disease without esophagitis; F17.210 Nicotine dependence, cigarettes, uncomplicated; F41.9 Anxiety disorder, unspecified; F32.9 Major depressive disorder, single episode, unspecified; G47.30 Sleep apnea, unspecified; Z88.1 Allergy status to other antibiotic agents; Z88.5 Allergy status to narcotic agent; Z88.0 Allergy status to penicillin; Z99.89 Dependence on other enabling machines and devices; Z79.4 Long term (current) use of insulin; Z79.899 Other long term (current) drug therapy
CPT/HCPCS: 63650; 76000; C1778; J2001; J2250; J2405; J2704; J3010; J3490; J7120; 01936

== ENCOUNTER 2018-12-19 20:45 | Observation (INO) | payer BC ==
[2018-12-19] MEDS ORDERED: Sodium Chloride 0.9% 2.5 ML Syringe FLUSH PRN ×2 (20:48→23:26)
[2018-12-19] MEDS ORDERED: Sodium Chloride 0.9% 10 ML Syringe FLUSH PRN ×2 (20:48→23:26)
[2018-12-19] MEDS ORDERED: Albuterol/Ipratropium 3.0-0.5 MG/3 ML Neb Soln NEB ONE ×2 (20:57→21:23)
[2018-12-19] MEDS ORDERED: methylPREDNISolone Sodium Succinate 125 MG/2 ML SDV IVPUSH ONE (21:04)
[2018-12-19 21:41] LABS: BLOOD UREA NITROGEN,BUN 15 mg/dL (7.0-18.0); CARBON DIOXIDE,CO2 26.6 mmol/L (21.0-32.0); CHLORIDE,CL 105 mmol/L (98-107); GLUCOSE RANDOM 98 mg/dL (74-106); POTASSIUM,K 4.2 mmol/L (3.5-5.1); SODIUM,NA 143 mmol/L (136-145)
--- NOTE | 2018-12-19 21:42 | EDM.PDOC ---
<Radha Villaseñor E - Last Filed: 12/19/18 23:01> ED HPI GENERAL MEDICAL PROBLEM - General Chief Complaint: Respiratory Problem Stated Complaint: PT HAS DIFFICULTY BREATHING Time Seen by Provider: 12/19/18 20:49 Source of Information: Reports: Patient History Limitations: Reports: No Limitations - History of Present Illness INITIAL COMMENTS - FREE TEXT/NARRATIVE: HISTORY AND PHYSICAL: History of present illness: Patient is a is a 48-year-old woman presenting to the emergency room for chief complaint of "shortness of breath". Patient states that approximately one week ago she started out with a sore throat, then developed into a head cold on Wednesday that went to her chest. She states she started becoming short of breath on Wednesday, which has increased in intensity every day since Wednesday. She is currently having shortness of breath upon examination, having trouble finishing sentences. She states that she is coughing up green phlegm as well. She describes her shortness of breath like "I can't get enough air". She denies chest pain. She states that she has been having fever and chills, becoming sweaty today. She denies being around anybody who is sick. She states that she has been using her rescue inhaler every 4-6 hours today, but it has not helped her shortness of breath. Patient denies any headache, change in vision, syncope or near syncope. Denies any chest pain. Denies any abdominal pain, nausea, vomiting, diarrhea, constipation or dysuria. Has not noted any blood in urine or stool. Patient has been eating and drinking appropriately. Patient has past medical history of chronic back pain, degenerative disc disease, GERD, hypertension, hypothyroidism , type 2 diabetes. She does see Dr. Nielson for pain management. Dr. Jacinto is her primary care provider. Review of systems: As per history of present illness and below otherwise all systems reviewed and negative. Past medical history: As per history of present illness and as reviewed below otherwise noncontributory. Surgical history: As per history of present illness and as reviewed below otherwise noncontributory. Social history: See social history for further information Family history: As per history of present illness and as reviewed below otherwise noncontributory. Physical exam: General: Patient is a well-nourished and well-groomed 48-year-old female. She is alert and orientated. She is nontoxic in appearance. HEENT: Atraumatic, normocephalic, pupils equal and reactive bilaterally, negative for conjunctival pallor or scleral icterus, mucous membranes moist, TMs normal bilaterally, maxillary and frontal sinuses nontender to palpation, throat clear, neck supple, nontender, trachea midline. No drooling or trismus noted. No meningeal signs. No hot potato voice noted. Lungs: Bilateral inspiratory and expiratory wheezing, chest nontender. Heart: S1S2, regular rate and rhythm without overt murmur Abdomen: Soft, nondistended, nontender. Negative for masses or hepatosplenomegaly. Negative for costovertebral tenderness. Skin: Intact, warm, dry. No lesions or rashes noted. Extremities: Atraumatic, moves all extremities per self without difficulty or deficits, negative for cords or calf pain. Neurovascular unremarkable. Neuro: Awake, alert, oriented. Cranial nerves II through XII unremarkable. Cerebellum unremarkable. Motor and sensory unremarkable throughout. Exam nonfocal. Notes: Patient was having significant inspiratory and expiratory wheezing upon arrival to the emergency room. She was given DuoNeb treatment by respiratory therapy and was reevaluated afterwards, she was found to still has significant and drainage tray wheezing. As a result she was given another DuoNeb treatment. Patient states she feels no improvement after the second reading treatment. She continues to have expiratory wheezing. She is 90-91% on 2 L per nasal cannula. Diagnostics: Chest x-ray Therapeutics: DuoNeb, Solu-Medrol IV Impression: Hypoxemia Low TSH level Plan: Observation admission to med/surg with telemetry Definitive disposition and diagnosis as appropriate pending reevaluation and review of above. low back Pain Score (Numeric/FACES): 5 - Related Data Allergies Allergy/AdvReac Type Severity Reaction Status Date / Time erythromycin base Allergy Vomiting Verified 12/19/18 23:10 morphine Allergy Other Verified 12/19/18 23:10 Penicillins Allergy Difficulty Verified 12/19/18 23:10 Breathing Home Meds: Home Meds Levothyroxine 275 mcg PO ACBREAKFAST 12/03/17 [History] traMADol HCl [Tramadol HCl] 50 - 100 mg PO Q6H PRN 12/03/17 [History] FLUoxetine HCl [Prozac] 40 mg PO DAILY 07/12/18 [History] Gabapentin [Neurontin] 900 mg PO ASDIRECTED 07/12/18 [History] Omeprazole 40 mg PO ASDIRECTED 07/12/18 [History] Zolpidem Tartrate [Ambien] 5 mg PO BEDTIME PRN 07/12/18 [History] Cyclobenzaprine [Flexeril] 1 tab PO Q4HR PRN 12/19/18 [History] Hydrocodone/Acetaminophen [Hydrocodon-Acetaminophn 10-325] 1 - 2 tab PO Q6H PRN 12/19/18 [History] Ketamine Hcl [Ketamine Nasal [place] Compound] 1 spray DERIK TID 12/19/18 [History] Past Medical History HEENT History: Reports: Allergic Rhinitis, Other (See Below) Other HEENT History: wears glasses/contacts, has upper denture Cardiovascular History: Reports: MA Other Cardiovascular History: h/o HTN and high cholesterol- ok since loosing 100 lb. after gastric sleeve surgery. she had an MA 1 year ago- no heart damage , no medications, no stent, no follow up. 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: abd hyst Musculoskeletal History: Reports: Arthritis, Back Pain, Chronic Other Musculoskeletal History: hx of degenerative disc disease, hx of 6 fx vertebrate Neurological History: Reports: Migraines, Neuropathy, Diabetic Psychiatric History: Reports: Anxiety, Depression Endocrine/Metabolic History: Reports: Diabetes, Type II, Hypothyroidism Other Endocrine/Metabolic History: has not required medication for diabetes siince weight loss Oncologic (Cancer) History: Reports: Breast Other Oncologic History: skin cancer removed from face- unknown type Dermatologic History: Reports: None - Infectious Disease History Infectious Disease History: Reports: Chicken Pox - Past Surgical History Head Surgeries/Procedures: Reports: None HEENT Surgical History: Reports: Tonsillectomy GI Surgical History: Reports: Appendectomy, Bariatric Procedure, Cholecystectomy , Other (See Below) Female Surgical History: Reports: Breast Biopsy, Hysterectomy, Lithotripsy/ ESWL, Tubal Ligation Endocrine Surgical History: Reports: Thyroidectomy Neurological Surgical History: Reports: Discectomy, Lumbar Spine Other Neurological Surgeries/Procedures: Microdiscectomy L4-5 Musculoskeletal Surgical History: Reports: Carpal Tunnel, Other (See Below) Other Musculoskeletal Surgeries/Procedures:: ulnar nerve surgery Oncologic Surgical History: Reports: Lumpectomy Social & Family History - Family History Family Medical History: Noncontributory - Tobacco Use Smoking Status *Q: Current Every Day Smoker Years of Tobacco use: 38 Packs/Tins Daily: 1 - Caffeine Use Caffeine Use: Reports: None - Recreational Drug Use Recreational Drug Use: No - Living Situation & Occupation Living situation: Reports: Occupation: Employed ED ROS GENERAL - Review of Systems Review Of Systems: ROS reveals no pertinent complaints other than HPI. ED EXAM, GENERAL - Physical Exam Exam: See Below (See dictation) Course - Vital Signs Last Recorded V/S: Last Vital Signs Temp 36.0 C 12/19/18 23:00 Pulse 90 12/19/18 22:20 Resp 18 12/19/18 23:00 BP 154/95 H 12/19/18 23:00 Pulse Ox 95 12/19/18 23:56 - Orders/Labs/Meds Orders: Active Orders 24 hr Category Date Time Status RT Aerosol Therapy [RC] ASDIRECTED Care 12/19/18 20:57 Active RT Aerosol Therapy [RC] ASDIRECTED Care 12/19/18 21:23 Active Sodium Chloride 0.9% [Saline Flush] Med 12/19/18 20:48 Active 10 ml FLUSH ASDIRECTED PRN Sodium Chloride 0.9% [Saline Flush] Med 12/19/18 20:48 Active 2.5 ml FLUSH ASDIRECTED PRN Saline Lock Insert [OM.PC] Stat Oth 12/19/18 20:48 Ordered Medication Orders Acetaminophen (Tylenol) 650 mg PO Q6H PRN PRN Reason: Fever Methylprednisolone Sodium Succinate (Solu-Medrol) 125 mg IVPUSH Q8H SABA Last Admin: 12/20/18 00:21 Dose: 125 mg Oxycodone HCl (Oxycodone) 5 mg PO Q4H PRN PRN Reason: Pain (moderate 4-6) Last Admin: 12/20/18 00:22 Dose: 5 mg Sodium Chloride (Saline Flush) 10 ml FLUSH ASDIRECTED PRN PRN Reason: Keep Vein Open Last Admin: 12/19/18 21:26 Dose: 10 ml Sodium Chloride (Saline Flush) 2.5 ml FLUSH ASDIRECTED PRN PRN Reason: Keep Vein Open Last Admin: 12/19/18 21:26 Dose: 2.5 ml Labs: Laboratory Tests 12/19/18 12/19/18 Range/Units 21:05 21:05 WBC 9.30 (4.0-11.0) K/uL RBC 5.24 (4.30-5.90) M/uL Hgb 16.2 H (12.0-16.0) g/dL Hct 47.1 H (36.0-46.0) % MCV 89.9 (80.0-98.0) fL MCH 30.9 (27.0-32.0) pg MCHC 34.4 (31.0-37.0) g/dL RDW Std Deviation 45.6 (28.0-62.0) fl RDW Coeff of Sheryl 14 (11.0-15.0) % Plt Count 239 (150-400) K/uL MPV 9.80 (7.40-12.00) fL Neut % (Auto) 51.4 (48.0-80.0) % Lymph % (Auto) 41.5 H (16.0-40.0) % [place] % (Auto) 5.3 (0.0-15.0) % Eos % (Auto) 1.4 (0.0-7.0) % Baso % (Auto) 0.4 (0.0-1.5) % Neut # (Auto) 4.8 (1.4-5.7) K/uL Lymph # (Auto) 3.9 H (0.6-2.4) K/uL [place] # (Auto) 0.5 (0.0-0.8) K/uL Eos # (Auto) 0.1 (0.0-0.7) K/uL Baso # (Auto) 0.0 (0.0-0.1) K/uL Nucleated RBC % 0.0 /100WBC Nucleated RBCs # 0 K/uL Sodium 143 (136-145) mmol/L Potassium 4.2 (3.5-5.1) mmol/L Chloride 105 (98-107) mmol/L Carbon Dioxide 26.6 (21.0-32.0) mmol/L BUN 15 (7.0-18.0) mg/dL Creatinine 0.7 (0.6-1.0) mg/dL Est Cr Clr Drug Dosing 83.03 mL/min Estimated GFR (MDRD) > 60.0 ml/min Glucose 98 (74-106) mg/dL Calcium 9.5 (8.5-10.1) mg/dL Total Bilirubin 0.2 (0.2-1.0) mg/dL AST 18 (15-37) IU/L ALT 14 (14-63) IU/L Alkaline Phosphatase 146 H (46-116) U/L Troponin I < 0.050 (0.000-0.056) ng/mL Total Protein 7.5 (6.4-8.2) g/dL Albumin 3.1 L (3.4-5.0) g/dL Globulin 4.4 H (2.6-4.0) g/dL Albumin/Globulin Ratio 0.7 L (0.9-1.6) TSH 3rd Generation 0.35 L (0.36-3.74) uIU/mL Meds: Medications Generic Name Dose Route Start Last Admin Trade Name Benton PRN Reason Stop Dose Admin Acetaminophen 650 mg 12/19/18 23:33 Tylenol PO Q6H PRN Fever Methylprednisolone Sodium Succinate 125 mg 12/20/18 01:00 12/20/18 00:21 Solu-Medrol IVPUSH 125 mg Q8H SABA Administration Oxycodone HCl 5 mg 12/19/18 23:35 12/20/18 00:22 Oxycodone PO 5 mg Q4H PRN Administration Pain (moderate 4-6) Sodium Chloride 10 ml 12/19/18 20:48 12/19/18 21:26 Saline Flush FLUSH 10 ml ASDIRECTED PRN Administration Keep Vein Open Sodium Chloride 2.5 ml 12/19/18 20:48 12/19/18 21:26 Saline Flush FLUSH 2.5 ml ASDIRECTED PRN Administration Keep Vein Open Discontinued Medications Generic Name Dose Route Start Last Admin Trade Name Benton PRN Reason Stop Dose Admin Albuterol/Ipratropium 3 ml 12/19/18 20:57 12/19/18 21:00 Duoneb 3.0-0.5 Mg/3 Ml NEB 12/19/18 20:58 3 ml ONETIME ONE Administration Albuterol/Ipratropium 3 ml 12/19/18 21:23 12/19/18 21:31 Duoneb 3.0-0.5 Mg/3 Ml NEB 12/19/18 21:24 3 ml ONETIME ONE Administration Methylprednisolone Sodium Succinate 125 mg 12/19/18 21:04 12/19/18 21:26 Solu-Medrol IVPUSH 12/19/18 21:05 125 mg ONETIME ONE Administration Sodium Chloride 10 ml 12/19/18 23:26 Saline Flush FLUSH ASDIRECTED PRN Keep Vein Open Sodium Chloride 2.5 ml 12/19/18 23:26 Saline Flush FLUSH ASDIRECTED PRN Keep Vein Open Departure - Departure Time of Disposition: 23:01 Disposition: Refer to Observation Clinical Impression: Hypoxemia, Low TSH level - Discharge Information <Ayse Wood - Last Filed: 12/20/18 00:25> ED HPI GENERAL MEDICAL PROBLEM - History of Present Illness INITIAL COMMENTS - FREE TEXT/NARRATIVE: Please add bronchospasm impression above
--- NOTE | 2018-12-19 22:35 | CR ---
Indication: Shortness of breath Technique: Chest 2 views Comparison: None Findings: Cardiovascular and mediastinum: Heart size and vasculature are normal in caliber and appearance. Lungs and pleural spaces: Lungs are clear. No sign of infiltrate or mass. No sign of pleural effusion. No pneumothorax. Bones and soft tissues: Status post lumbar vertebroplasty. Impression: No acute pulmonary consolidation. Dictated by Andrew Bal MD @ Dec 19 2018 10:27PM Signed by Dr. Andrew Bal @ Dec 19 2018 10:34PM
[2018-12-19] MEDS ORDERED: Acetaminophen 325 MG Tab PO PRN (23:33)
[2018-12-19] MEDS ORDERED: oxyCODONE 5 MG Tab PO PRN (23:35)
[2018-12-20] MEDS: methylPREDNISolone Sodium Succinate 125 MG/2 ML SDV IVPUSH SCH ×2 (00:21→08:04)
[2018-12-20 06:48] LABS: BLOOD UREA NITROGEN,BUN 14 mg/dL (7.0-18.0); CARBON DIOXIDE,CO2 24.6 mmol/L (21.0-32.0); CHLORIDE,CL 105 mmol/L (98-107); GLUCOSE RANDOM 171 mg/dL (74-106); POTASSIUM,K 3.9 mmol/L (3.5-5.1); SODIUM,NA 142 mmol/L (136-145)
[2018-12-20] MEDS ORDERED: Cyclobenzaprine 10 MG Tab PO PRN (07:04)
[2018-12-20] MEDS ORDERED: Docusate Sodium 100 MG Cap PO PRN (07:05)
[2018-12-20] MEDS ORDERED: Albuterol/Ipratropium 3.0-0.5 MG/3 ML Neb Soln NEB PRN (07:05)
[2018-12-20] MEDS ORDERED: Ondansetron 4 MG Tab.DIS PO PRN (07:05)
[2018-12-20] MEDS ORDERED: Enoxaparin 40 MG/0.4 ML Syringe SUBCUT SCH (07:15)
[2018-12-20] MEDS ORDERED: Gabapentin 300 MG Cap PO SCH ×2 (07:15→14:00)
[2018-12-20] MEDS ORDERED: Omeprazole 20 MG Cap.CR PO SCH (07:30)
[2018-12-20] MEDS ORDERED: Levothyroxine 75 MCG Tab PO SCH (07:30)
[2018-12-20 07:47] VITALS: BP 147/76; PULSE 88
--- NOTE | 2018-12-20 08:02 | PCM.HP.2 ---
<Dixie Nathan - Last Filed: 12/20/18 09:44> H&P History of Present Illness - General Date of Service: 12/20/18 Admit Problem/Dx: Admission Diagnosis/Problem Admission Diagnosis/Problem Hypoxemia - History of Present Illness Initial Comments - Free Text/Narative: The patient is a 48-year-old female sent into the ER with shortness of breath. She reported last week she started with head cold symptoms that traveled into her chest. She reports productive cough, fever, chills and shortness of breath. She reports that shortness of breath increasingly worse yesterday. She denies any underlying lung disease such as COPD or asthma. She reports she' s had PFTs have been normal. She is a smoker. Her has nebulizer machine so she tried that before coming in, but it didn't work. Patient denies chest pain, abdominal pain, nausea/vomiting, or diarrhea. In the ER, lab work showed a white count, no anemia. Her d-dimer was negative. CMP was within normal limits. Her TSH was low at 0.35. She had a negative troponin. Chest x-ray was negative for acute cardiopulmonary process. She was requiring 4 L of oxygen to maintain her sats above 90%. She was started on Solu -Medrol and duo nebs in the ER. They have been weaning her down off oxygen. She is currently satting 97% on 1 L. Patient reports that she feels much better this morning. The patient is requesting discharge home today. PCP- [place] low back Pain Score (Numeric/FACES): 4 - Related Data Allergies/Adverse Reactions: Allergies Allergy/AdvReac Type Severity Reaction Status Date / Time erythromycin base Allergy Vomiting Verified 12/19/18 23:10 morphine Allergy Other Verified 12/19/18 23:10 Penicillins Allergy Difficulty Verified 12/19/18 23:10 Breathing Home Medications: Home Meds Levothyroxine 275 mcg PO ACBREAKFAST 12/03/17 [History] traMADol HCl [Tramadol HCl] 50 - 100 mg PO Q6H PRN 12/03/17 [History] FLUoxetine HCl [Prozac] 40 mg PO DAILY 07/12/18 [History] Gabapentin [Neurontin] 900 mg PO ASDIRECTED 07/12/18 [History] Omeprazole 40 mg PO ASDIRECTED 07/12/18 [History] Zolpidem Tartrate [Ambien] 5 mg PO BEDTIME PRN 07/12/18 [History] Cyclobenzaprine [Flexeril] 1 tab PO Q4HR PRN 12/19/18 [History] Hydrocodone/Acetaminophen [Hydrocodon-Acetaminophn 10-325] 1 - 2 tab PO Q6H PRN 12/19/18 [History] Ketamine Hcl [Ketamine Nasal Tulia Compound] 1 spray DERIK TID 12/19/18 [History] Albuterol/Ipratropium [DuoNeb 3.0-0.5 MG/3 ML] 3 ml .XX Q4HR PRN 30 Days #30 neb 12/20/18 [Rx] methylPREDNISolone [Medrol] 4 mg PO DAILY 6 Days #1 tab.ds.pk 12/20/18 [Rx] Past Medical History HEENT History: Reports: Allergic Rhinitis, Other (See Below) Other HEENT History: wears glasses/contacts, has upper denture Cardiovascular History: Reports: MD Other Cardiovascular History: h/o HTN and high cholesterol- ok since loosing 100 lb. after gastric sleeve surgery. she had an MD 1 year ago- no heart damage , no medications, no stent, no follow up. 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: Other (See Below) Other OB/BYN History: abd hyst Musculoskeletal History: Reports: Arthritis, Back Pain, Chronic Other Musculoskeletal History: hx of degenerative disc disease, hx of 6 fx vertebrate Neurological History: Reports: Migraines, Neuropathy, Diabetic Psychiatric History: Reports: Anxiety, Depression Endocrine/Metabolic History: Reports: Diabetes, Type II, Hypothyroidism Other Endocrine/Metabolic History: has not required medication for diabetes siince weight loss Oncologic (Cancer) History: Reports: Breast Other Oncologic History: skin cancer removed from face- unknown type Dermatologic History: Reports: None - Infectious Disease History Infectious Disease History: Reports: Chicken Pox - Past Surgical History Head Surgeries/Procedures: Reports: None HEENT Surgical History: Reports: Tonsillectomy GI Surgical History: Reports: Appendectomy, Bariatric Procedure, Cholecystectomy , Other (See Below) Female Surgical History: Reports: Breast Biopsy, Hysterectomy, Lithotripsy/ ESWL, Tubal Ligation Endocrine Surgical History: Reports: Thyroidectomy Neurological Surgical History: Reports: Discectomy, Lumbar Spine Other Neurological Surgeries/Procedures: Microdiscectomy L4-5 Musculoskeletal Surgical History: Reports: Carpal Tunnel, Other (See Below) Other Musculoskeletal Surgeries/Procedures:: ulnar nerve surgery Oncologic Surgical History: Reports: Lumpectomy Social & Family History - Family History Family Medical History: Noncontributory - Tobacco Use Smoking Status *Q: Current Every Day Smoker Years of Tobacco use: 38 Packs/Tins Daily: 1 - Caffeine Use Caffeine Use: Reports: None - Recreational Drug Use Recreational Drug Use: No - Living Situation & Occupation Living situation: Reports: Occupation: Employed H&P Review of Systems - Review of Systems: Review Of Systems: See Below General: Reports: Fever, Chills HEENT: Reports: Sinus Congestion, Sore Throat Pulmonary: Reports: Shortness of Breath, Cough Cardiovascular: Reports: No Symptoms Gastrointestinal: Reports: No Symptoms Genitourinary: Reports: No Symptoms Musculoskeletal: Reports: No Symptoms Skin: Reports: No Symptoms Psychiatric: Reports: No Symptoms Neurological: Reports: No Symptoms Hematologic/Lymphatic: Reports: No Symptoms Immunologic: Reports: No Symptoms Exam - Exam Exam: See Below - Vital Signs Vital Signs: Last Vital Signs Temp 97.9 F 12/20/18 07:46 Pulse 88 12/20/18 07:46 Resp 18 12/20/18 07:46 BP 147/76 H 12/20/18 07:46 Pulse Ox 97 12/20/18 07:46 Weight: 75.523 kg - Exam General: Alert, Oriented, Cooperative HEENT: Conjunctiva Clear, EOMI, Mucosa Moist & [place], Posterior Pharynx Clear, Pupils Equal, Pupils Reactive Neck: Supple, Trachea Midline Lungs: Clear to Auscultation, Normal Respiratory Effort Cardiovascular: Regular Rate, Regular Rhythm GI/Abdominal Exam: Normal Bowel Sounds, Soft, Non-Tender, No Distention Extremities: No Pedal Edema Skin: Warm, Dry, Intact Psychiatric: Alert, Normal Affect, Normal Mood - Patient Data Lab Results Last 24 hrs: Laboratory Results - last 24 hr 12/19/18 12/19/18 12/19/18 Range/Units 21:05 21:05 22:36 WBC 9.30 (4.0-11.0) K/uL RBC 5.24 (4.30-5.90) M/uL Hgb 16.2 H (12.0-16.0) g/dL Hct 47.1 H (36.0-46.0) % MCV 89.9 (80.0-98.0) fL MCH 30.9 (27.0-32.0) pg MCHC 34.4 (31.0-37.0) g/dL RDW Std Deviation 45.6 (28.0-62.0) fl RDW Coeff of Sheryl 14 (11.0-15.0) % Plt Count 239 (150-400) K/uL MPV 9.80 (7.40-12.00) fL Neut % (Auto) 51.4 (48.0-80.0) % Lymph % (Auto) 41.5 H (16.0-40.0) % [place] % (Auto) 5.3 (0.0-15.0) % Eos % (Auto) 1.4 (0.0-7.0) % Baso % (Auto) 0.4 (0.0-1.5) % Neut # (Auto) 4.8 (1.4-5.7) K/uL Lymph # (Auto) 3.9 H (0.6-2.4) K/uL [place] # (Auto) 0.5 (0.0-0.8) K/uL Eos # (Auto) 0.1 (0.0-0.7) K/uL Baso # (Auto) 0.0 (0.0-0.1) K/uL Nucleated RBC % 0.0 /100WBC Nucleated RBCs # 0 K/uL D-Dimer, Quantitative 0.25 (0.0-0.50) mg/L FEU Sodium 143 (136-145) mmol/L Potassium 4.2 (3.5-5.1) mmol/L Chloride 105 (98-107) mmol/L Carbon Dioxide 26.6 (21.0-32.0) mmol/L BUN 15 (7.0-18.0) mg/dL Creatinine 0.7 (0.6-1.0) mg/dL Est Cr Clr Drug Dosing 83.03 mL/min Estimated GFR (MDRD) > 60.0 ml/min Glucose 98 (74-106) mg/dL Calcium 9.5 (8.5-10.1) mg/dL Total Bilirubin 0.2 (0.2-1.0) mg/dL AST 18 (15-37) IU/L ALT 14 (14-63) IU/L Alkaline Phosphatase 146 H (46-116) U/L Troponin I < 0.050 (0.000-0.056) ng/mL Total Protein 7.5 (6.4-8.2) g/dL Albumin 3.1 L (3.4-5.0) g/dL Globulin 4.4 H (2.6-4.0) g/dL Albumin/Globulin Ratio 0.7 L (0.9-1.6) TSH 3rd Generation 0.35 L (0.36-3.74) uIU/mL 12/20/18 12/20/18 Range/Units 05:50 05:50 WBC 8.13 (4.0-11.0) K/uL RBC 4.84 (4.30-5.90) M/uL Hgb 14.3 (12.0-16.0) g/dL Hct 43.6 (36.0-46.0) % MCV 90.1 (80.0-98.0) fL MCH 29.5 (27.0-32.0) pg MCHC 32.8 (31.0-37.0) g/dL RDW Std Deviation 45.6 (28.0-62.0) fl RDW Coeff of Sheryl 14 (11.0-15.0) % Plt Count 244 (150-400) K/uL MPV 9.90 (7.40-12.00) fL Neut % (Auto) 86.1 H (48.0-80.0) % Lymph % (Auto) 13.4 L (16.0-40.0) % [place] % (Auto) 0.5 (0.0-15.0) % Eos % (Auto) 0.0 (0.0-7.0) % Baso % (Auto) 0.0 (0.0-1.5) % Neut # (Auto) 7.0 H (1.4-5.7) K/uL Lymph # (Auto) 1.1 (0.6-2.4) K/uL [place] # (Auto) 0.0 (0.0-0.8) K/uL Eos # (Auto) 0.0 (0.0-0.7) K/uL Baso # (Auto) 0.0 (0.0-0.1) K/uL Nucleated RBC % 0.0 /100WBC Nucleated RBCs # 0 K/uL D-Dimer, Quantitative (0.0-0.50) mg/L FEU Sodium 142 (136-145) mmol/L Potassium 3.9 (3.5-5.1) mmol/L Chloride 105 (98-107) mmol/L Carbon Dioxide 24.6 (21.0-32.0) mmol/L BUN 14 (7.0-18.0) mg/dL Creatinine 0.8 (0.6-1.0) mg/dL Est Cr Clr Drug Dosing 75.70 mL/min Estimated GFR (MDRD) > 60.0 ml/min Glucose 171 H (74-106) mg/dL Calcium 9.3 (8.5-10.1) mg/dL Total Bilirubin (0.2-1.0) mg/dL AST (15-37) IU/L ALT (14-63) IU/L Alkaline Phosphatase (46-116) U/L Troponin I (0.000-0.056) ng/mL Total Protein (6.4-8.2) g/dL Albumin (3.4-5.0) g/dL Globulin (2.6-4.0) g/dL Albumin/Globulin Ratio (0.9-1.6) TSH 3rd Generation (0.36-3.74) uIU/mL Result Diagrams: 12/20/18 05:50 12/20/18 05:50 - Problem List (1) Hypoxemia SNOMED Code(s): 699921968 ICD Code: R09.02 - HYPOXEMIA Status: Acute (2) Low TSH level SNOMED Code(s): 162325349 ICD Code: R79.89 - OTHER SPECIFIED ABNORMAL FINDINGS OF BLOOD CHEMISTRY Status: Acute Problem List Initiated/Reviewed/Updated: Yes Orders Last 24hrs: Active Orders 24 hr Category Date Time Status Admission Status [Patient Status] [ADT] Stat ADT 12/19/18 22:21 Active Oxygen Therapy Adult [Oxygen Therapy] [RC] ASDIRECTED Care 12/19/18 23:28 Active Oxygen Therapy [RC] PRN Care 12/20/18 07:05 Active RT Aerosol Therapy [RC] ASDIRECTED Care 12/19/18 20:57 Active RT Aerosol Therapy [RC] ASDIRECTED Care 12/19/18 21:23 Active RT Aerosol Therapy [RC] ASDIRECTED Care 12/20/18 07:06 Active Telemetry Monitoring [Cardiac Monitoring] [RC] Q8H Care 12/19/18 23:31 Active Up ad Myriam [RC] ASDIRECTED Care 12/20/18 07:05 Active VTE/DVT Education [RC] PER UNIT ROUTINE Care 12/20/18 07:05 Active Vital Signs [RC] Q4H Care 12/20/18 07:05 Active Heart Healthy Diet [DIET] Diet 12/20/18 Breakfast Active BASIC METABOLIC PANEL,BMP [CHEM] AM Lab 12/21/18 05:11 Ordered CBC WITH AUTO DIFF [HEME] AM Lab 12/21/18 05:11 Ordered Acetaminophen [Tylenol] Med 12/19/18 23:33 Active 650 mg PO Q6H PRN Albuterol/Ipratropium [DuoNeb 3.0-0.5 MG/3 ML] Med 12/20/18 07:05 Active 3 ml NEB Q4HRRT PRN Cyclobenzaprine [Flexeril] Med 12/20/18 07:04 Active 10 mg PO Q4HR PRN Docusate Sodium [Colace] Med 12/20/18 07:05 Active 100 mg PO BID PRN Enoxaparin [Lovenox] Med 12/20/18 07:15 Active 40 mg SUBCUT Q24H FLUoxetine [PROzac] Med 12/20/18 09:00 Active 40 mg PO DAILY Gabapentin [Neurontin] Med 12/20/18 14:00 Active 300 mg PO DAILY@1400 Gabapentin [Neurontin] Med 12/20/18 07:15 Active 900 mg PO BID@0600,2100 Levothyroxine Med 12/20/18 07:30 Pending 275 mcg PO ACBREAKFAST Omeprazole Med 12/20/18 07:30 Active 40 mg PO ACBREAKFAST Ondansetron [Zofran ODT] Med 12/20/18 07:05 Active 4 mg PO Q6H PRN Patient's Own Medication [Ptom] Med 12/20/18 14:00 Active 1 each DERIK TID Sodium Chloride 0.9% [Saline Flush] Med 12/19/18 20:48 Active 10 ml FLUSH ASDIRECTED PRN Sodium Chloride 0.9% [Saline Flush] Med 12/19/18 20:48 Active 2.5 ml FLUSH ASDIRECTED PRN methylPREDNISolone Sod Succ [Solu-MEDROL] Med 12/20/18 01:00 Active 125 mg IVPUSH Q8H oxyCODONE Med 12/19/18 23:35 Active 5 mg PO Q4H PRN Saline Lock Insert [OM.PC] Routine Oth 12/19/18 23:26 Ordered Saline Lock Insert [OM.PC] Stat Oth 12/19/18 20:48 Ordered Resuscitation Status Routine Resus Stat 12/20/18 07:05 Ordered Medication Orders Acetaminophen (Tylenol) 650 mg PO Q6H PRN PRN Reason: Fever Albuterol/Ipratropium (Duoneb 3.0-0.5 Mg/3 Ml) 3 ml NEB Q4HRRT PRN PRN Reason: Shortness Of Breath/wheezing Cyclobenzaprine HCl (Flexeril) 10 mg PO Q4HR PRN PRN Reason: Pain Docusate Sodium (Colace) 100 mg PO BID PRN PRN Reason: Constipation Enoxaparin Sodium (Lovenox) 40 mg SUBCUT Q24H [facility] Fluoxetine HCl (Prozac) 40 mg PO DAILY [facility] Gabapentin (Neurontin) 900 mg PO BID@0600,2100 SABA Gabapentin (Neurontin) 300 mg PO DAILY@1400 [facility] Levothyroxine Sodium (Levothyroxine) 275 mcg PO ACBREAKFAST [facility] Methylprednisolone Sodium Succinate (Solu-Medrol) 125 mg IVPUSH Q8H [facility] Last Admin: 12/20/18 00:21 Dose: 125 mg Omeprazole (Omeprazole) 40 mg PO ACBREAKFAST [facility]ABA Ondansetron HCl (Zofran Odt) 4 mg PO Q6H PRN PRN Reason: nausea, able to take PO Oxycodone HCl (Oxycodone) 5 mg PO Q4H PRN PRN Reason: Pain (moderate 4-6) Last Admin: 12/20/18 00:22 Dose: 5 mg Ketamine Nasal Tulia (Compound] 1 Tulia) 1 each DERIK TID SABA Sodium Chloride (Saline Flush) 10 ml FLUSH ASDIRECTED PRN PRN Reason: Keep Vein Open Last Admin: 12/19/18 21:26 Dose: 10 ml Sodium Chloride (Saline Flush) 2.5 ml FLUSH ASDIRECTED PRN PRN Reason: Keep Vein Open Last Admin: 12/19/18 21:26 Dose: 2.5 ml Assessment/Plan Comment:: 1. Admit for observation 2. Code status- full 3. Vitals per routine 4. I/Os per routine 5. Diet- heart healthy 6. DVT prophylaxis with Lovenox 7. Hypoxemia- no pneumonia on x-ray and no known underlying lung diseases- continue on solumedrol and duoneb treatments. Wean oxygen as tolerated. Encouraged smoking cessation. 8. Hypothyroidism- recent adjustment in medication- follow up outpatient. 9. Chronic conditions- chronic back pain, degenerative disc disease,depression/ anxiety, GERD Patient was admitted overnight, continued on DuoNeb and IV steroids. By the next morning the past reported she felt much better and was requesting discharge. Her oxygen was weaned and she was satting at rest and with activity in the 90s on RA. Discharge home with home meds plus Medrol dose pack and duonebs. Follow up with PCP- Dr. Jacinto. Continue heart healthy diet, activity as tolerated, symptoms to report to physician include fever/chills, chest pain, shortness of breath, wheezing, abdominal pain, erythema, discharge, or not improving as expected. <Tk Power - Last Filed: 12/20/18 13:02> H&P History of Present Illness - General Admit Problem/Dx: Admission Diagnosis/Problem Admission Diagnosis/Problem Hypoxemia I have seen and examined the patient independently of bio medical technician, Dr. Aliza DO. I have reviewed and agree with the plan of care as outlined for this patient by her. I have discussed the case with her. Please see orders. Exam - Vital Signs Vital Signs: Last Vital Signs Temp 36.6 C 12/20/18 07:46 Pulse 88 12/20/18 07:46 Resp 18 12/20/18 07:46 BP 147/76 H 12/20/18 07:46 Pulse Ox 96 12/20/18 08:45 - Patient Data Lab Results Last 24 hrs: Laboratory Results - last 24 hr 09/09/19 09/09/19 09/09/19 Range/Units 21:05 21:05 22:36 WBC 9.30 (4.0-11.0) K/uL RBC 5.24 (4.30-5.90) M/uL Hgb 16.2 H (12.0-16.0) g/dL Hct 47.1 H (36.0-46.0) % MCV 89.9 (80.0-98.0) fL MCH 30.9 (27.0-32.0) pg MCHC 34.4 (31.0-37.0) g/dL RDW Std Deviation 45.6 (28.0-62.0) fl RDW Coeff of Sheryl 14 (11.0-15.0) % Plt Count 239 (150-400) K/uL MPV 9.80 (7.40-12.00) fL Neut % (Auto) 51.4 (48.0-80.0) % Lymph % (Auto) 41.5 H (16.0-40.0) % [place] % (Auto) 5.3 (0.0-15.0) % Eos % (Auto) 1.4 (0.0-7.0) % Baso % (Auto) 0.4 (0.0-1.5) % Neut # (Auto) 4.8 (1.4-5.7) K/uL Lymph # (Auto) 3.9 H (0.6-2.4) K/uL [place] # (Auto) 0.5 (0.0-0.8) K/uL Eos # (Auto) 0.1 (0.0-0.7) K/uL Baso # (Auto) 0.0 (0.0-0.1) K/uL Nucleated RBC % 0.0 /100WBC Nucleated RBCs # 0 K/uL D-Dimer, Quantitative 0.25 (0.0-0.50) mg/L FEU Sodium 143 (136-145) mmol/L Potassium 4.2 (3.5-5.1) mmol/L Chloride 105 (98-107) mmol/L Carbon Dioxide 26.6 (21.0-32.0) mmol/L BUN 15 (7.0-18.0) mg/dL Creatinine 0.7 (0.6-1.0) mg/dL Est Cr Clr Drug Dosing 83.03 mL/min Estimated GFR (MDRD) > 60.0 ml/min Glucose 98 (74-106) mg/dL Calcium 9.5 (8.5-10.1) mg/dL Total Bilirubin 0.2 (0.2-1.0) mg/dL AST 18 (15-37) IU/L ALT 14 (14-63) IU/L Alkaline Phosphatase 146 H (46-116) U/L Troponin I < 0.050 (0.000-0.056) ng/mL Total Protein 7.5 (6.4-8.2) g/dL Albumin 3.1 L (3.4-5.0) g/dL Globulin 4.4 H (2.6-4.0) g/dL Albumin/Globulin Ratio 0.7 L (0.9-1.6) TSH 3rd Generation 0.35 L (0.36-3.74) uIU/mL 12/20/18 12/20/18 Range/Units 05:50 05:50 WBC 8.13 (4.0-11.0) K/uL RBC 4.84 (4.30-5.90) M/uL Hgb 14.3 (12.0-16.0) g/dL Hct 43.6 (36.0-46.0) % MCV 90.1 (80.0-98.0) fL MCH 29.5 (27.0-32.0) pg MCHC 32.8 (31.0-37.0) g/dL RDW Std Deviation 45.6 (28.0-62.0) fl RDW Coeff of Sheryl 14 (11.0-15.0) % Plt Count 244 (150-400) K/uL MPV 9.90 (7.40-12.00) fL Neut % (Auto) 86.1 H (48.0-80.0) % Lymph % (Auto) 13.4 L (16.0-40.0) % [place] % (Auto) 0.5 (0.0-15.0) % Eos % (Auto) 0.0 (0.0-7.0) % Baso % (Auto) 0.0 (0.0-1.5) % Neut # (Auto) 7.0 H (1.4-5.7) K/uL Lymph # (Auto) 1.1 (0.6-2.4) K/uL [place] # (Auto) 0.0 (0.0-0.8) K/uL Eos # (Auto) 0.0 (0.0-0.7) K/uL Baso # (Auto) 0.0 (0.0-0.1) K/uL Nucleated RBC % 0.0 /100WBC Nucleated RBCs # 0 K/uL D-Dimer, Quantitative (0.0-0.50) mg/L FEU Sodium 142 (136-145) mmol/L Potassium 3.9 (3.5-5.1) mmol/L Chloride 105 (98-107) mmol/L Carbon Dioxide 24.6 (21.0-32.0) mmol/L BUN 14 (7.0-18.0) mg/dL Creatinine 0.8 (0.6-1.0) mg/dL Est Cr Clr Drug Dosing 75.70 mL/min Estimated GFR (MDRD) > 60.0 ml/min Glucose 171 H (74-106) mg/dL Calcium 9.3 (8.5-10.1) mg/dL Total Bilirubin (0.2-1.0) mg/dL AST (15-37) IU/L ALT (14-63) IU/L Alkaline Phosphatase (46-116) U/L Troponin I (0.000-0.056) ng/mL Total Protein (6.4-8.2) g/dL Albumin (3.4-5.0) g/dL Globulin (2.6-4.0) g/dL Albumin/Globulin Ratio (0.9-1.6) TSH 3rd Generation (0.36-3.74) uIU/mL Result Diagrams: 12/20/18 05:50 12/20/18 05:50 Orders Last 24hrs: Active Orders 24 hr Category Date Time Status Admission Status [Patient Status] [ADT] Stat ADT 12/19/18 22:21 Active Discontinue Telemetry Monitoring [Cardiac Monitoring Care 12/20/18 10:20 Active Discontinue] [RC] Click to Edit Oxygen Therapy Adult [Oxygen Therapy] [RC] ASDIRECTED Care 12/19/18 23:28 Active Oxygen Therapy [RC] PRN Care 12/20/18 07:05 Active RT Aerosol Therapy [RC] ASDIRECTED Care 12/19/18 20:57 Active RT Aerosol Therapy [RC] ASDIRECTED Care 12/19/18 21:23 Active RT Aerosol Therapy [RC] ASDIRECTED Care 12/20/18 07:06 Active Ready for Discharge [RC] PER UNIT ROUTINE Care 12/20/18 09:38 Active Telemetry Monitoring [Cardiac Monitoring] [RC] Q8H Care 12/19/18 23:31 Active Up ad Myriam [RC] ASDIRECTED Care 12/20/18 07:05 Active VTE/DVT Education [RC] PER UNIT ROUTINE Care 12/20/18 07:05 Active Vital Signs [RC] Q4H Care 12/20/18 07:05 Active Saline Lock Insert [OM.PC] Routine Oth 12/19/18 23:26 Ordered Saline Lock Insert [OM.PC] Stat Oth 12/19/18 20:48 Ordered Resuscitation Status Routine Resus Stat 12/20/18 07:05 Ordered
[2018-12-20] MEDS ORDERED: FLUoxetine 20 MG Cap PO SCH (09:00)
[2018-12-20] MEDS ORDERED: KETAMINE NAS SCH (14:00)
== END 2018-12-20 11:15 | disposition home or self-care (01) ==
LOC: MW.ED 20:45 → MW.MS 22:21
PROVIDERS: ADMIT Internal Medicine; ATTEND Internal Medicine
DX: R09.02 Hypoxemia (principal); R79.89 Other specified abnormal findings of blood chemistry; I10 Essential (primary) hypertension; E03.9 Hypothyroidism, unspecified; E11.40 Type 2 diabetes mellitus with diabetic neuropathy, unspecified; E78.00 Pure hypercholesterolemia, unspecified; G47.33 Obstructive sleep apnea (adult) (pediatric); K21.9 Gastro-esophageal reflux disease without esophagitis; M19.90 Unspecified osteoarthritis, unspecified site; G43.909 Migraine, unspecified, not intractable, without status migrainosus; F17.210 Nicotine dependence, cigarettes, uncomplicated; F41.9 Anxiety disorder, unspecified; F32.9 Major depressive disorder, single episode, unspecified; Z88.1 Allergy status to other antibiotic agents; Z88.5 Allergy status to narcotic agent; Z88.0 Allergy status to penicillin; Z79.899 Other long term (current) drug therapy; Z99.89 Dependence on other enabling machines and devices
CPT/HCPCS: 36415; 71046; 80048; 80053; 84443; 84484; 85025; 85379; 93005; 96372; 96374; 96376; 99285; A9270; G0378; J1650; J2930; J7620-GY

== ENCOUNTER 2019-03-21 11:00 | Day surgery (SDC) | payer BC ==
[~2019-03-21 11:00] MED LIST changes: +Betamethasone Acetate/Betamethasone Sod Phosphate 30 MG/5 ML MDV EPIDUR ONE; -Clindamycin Phosphate in D5W 300 MG in Premix Bag 1 BAG IV ONE; +Iopamidol 200-M 10 ML vial ITHECAL ONE; +Lidocaine 2% 5 ML SDV INJECT ONE; +Ropivacaine 0.5% 5 MG/ML 30 ML SDV INJECT ONE
--- NOTE | 2019-03-21 19:43 | OR ---
SURGEON: Carline Yates D.O. DATE OF PROCEDURE: 03/21/2019 PRIMARY SURGEON: Carline Yates D.O. ASSISTANTS: OR staff present: 1. RT Bassam. 2. Sergio Nieves RN. 3. Jillian Saleh RN. WOUND CLASS: I. PREOPERATIVE DIAGNOSES: 1. Lumbar herniated disk. 2. Left L5-S1 radiculopathy. POSTOPERATIVE DIAGNOSES: 1. Lumbar herniated disk. 2. Left L5-S1 radiculopathy. PROCEDURE PERFORMED: 1. Left transforaminal epidural steroid injection at S1. 2. Fluoroscopic guidance for needle placement. 3. Local with oral Valium for sedation. SCREENING QUESTIONS: The patient answered "no" to all of the following questions: 1. Are you allergic to iodine, Betadine or latex? 2. Do you have a bleeding disorder? 3. Do you have any joint replacements, heart valve replacements, or a pacemaker? 4. Are you allergic to anti-inflammatories or blood thinners? 5. Do you have any current local or systemic infections? DESCRIPTION OF PROCEDURE: The patient had the procedure thoroughly explained including risks, benefits and alternatives. Consent was signed in my clinic indicating understanding and willingness to proceed. The patient presented to [facility] where the patient was escorted to the dressing room to disrobe and change into a hospital gown. Preoperative vital signs were taken and stable. The patient reported that Valium was taken prior to the procedure. The patient was brought to the procedure room and placed in the prone position on the table. A pillow was placed under the abdomen in order to flatten the lumbar lordosis. The back was prepped with ChloraPrep and sterilely draped. All personnel in the operating room were dressed in appropriate attire including surgical scrubs, head and shoe covers. This was to ensure sterility while in the treatment room. During the time fluoroscopy was in use, all personnel in the operating room wore lead bishop with thyroid collars. Sterile technique was used during the procedure. The fluoroscope was placed for the S1 transforaminal epidural steroid injection. There was no sign of infection at the skin site for needle insertion. The skin was anesthetized with 2% lidocaine with a 27 gauge 1-1/2 inch needle. Then, a 22 gauge 3-1/2 inch spinal needle, advanced to the S1. Under direct fluoroscopic guidance needle position was verified in three views; AP, oblique and lateral, with 0.2 cubic centimeters increments of [id number]-200 dye. No intravascular flow pattern was observed under live fluoroscopy. Then 12 milligrams of Celestone was slowly injected after negative aspiration of heme, cerebrospinal fluid and no paresthesias were noted. The needle was cleared prior to removal from the skin. No adverse reactions were noted. The patient was brought to the recovery room awake and in good condition by my staff. The patient was monitored and discharge instructions were given after a brief stay in the recovery area. Both oral and written discharge and follow up instructions were given. The patient will follow up in the clinic in 3-4 weeks post procedure to evaluate the efficacy. The patient verbalized understanding including understanding of those signs and symptoms that would require emergency care and knows how to contact the office if there are any problems or questions in the meantime. PREOPERATIVE PAIN: 4/10. POSTOPERATIVE PAIN: 0/10. FOLLOWUP: Follow up in the Pain Clinic in 3 weeks. JOSE / NOMI /[id number] QUE
== END 2019-03-21 13:21 | disposition home or self-care (01) ==
LOC: MW.SDS 11:00
PROVIDERS: ATTEND Anesthesiology
DX: M51.16 Intervertebral disc disorders with radiculopathy, lumbar region (principal); M48.061 Spinal stenosis, lumbar region without neurogenic claudication; M47.26 Other spondylosis with radiculopathy, lumbar region; M17.11 Unilateral primary osteoarthritis, right knee; M81.0 Age-related osteoporosis without current pathological fracture; E11.42 Type 2 diabetes mellitus with diabetic polyneuropathy; E78.5 Hyperlipidemia, unspecified; K21.9 Gastro-esophageal reflux disease without esophagitis; I10 Essential (primary) hypertension; E03.9 Hypothyroidism, unspecified; F41.9 Anxiety disorder, unspecified; F32.9 Major depressive disorder, single episode, unspecified; E66.9 Obesity, unspecified; Z79.4 Long term (current) use of insulin; Z88.1 Allergy status to other antibiotic agents; Z88.0 Allergy status to penicillin; Z68.30 Body mass index [BMI] 30.0-30.9, adult
CPT/HCPCS: 64483; J0702; 62323

== ENCOUNTER 2020-04-17 07:46 | Emergency (ER) | payer BC ==
[2020-04-17] MEDS ORDERED: Sodium Chloride 0.9% 1,000 ML IV ONE (08:12)
--- NOTE | 2020-04-17 08:18 | EDM.PDOC ---
ED HPI GENERAL MEDICAL PROBLEM - General Chief Complaint: Gastrointestinal Problem Stated Complaint: NO BOWEL MOVEMENTS FOR 32 DAYS Time Seen by Provider: 04/17/20 08:13 Source of Information: Reports: Patient History Limitations: Reports: No Limitations - History of Present Illness INITIAL COMMENTS - FREE TEXT/NARRATIVE: Patient is a 50-year-old female who presents today for constipation. Patient that she has not had a bowel movement for the past 32 days and has been taking [id number] enemas and stool softeners and laxatives at home without relief. Patient has some diffuse abdominal pain only when you press down. Patient states is now difficult for her to drink or eat anything she feels not moving forward. Patient also complains of stress of breath is smelling like her feces. Patient does state she still passing gas. Patient has never had a small bowel obstruction. Patient states that she normally comes to hospital and is merely constipation. Patient's had a number of abdominal surgeries in the past. Abdomen Pain Score (Numeric/FACES): 3 - Related Data Allergies Allergy/AdvReac Type Severity Reaction Status Date / Time erythromycin base Allergy Vomiting Verified 04/17/20 07:54 morphine Allergy Other Verified 04/17/20 07:54 Penicillins Allergy Difficulty Verified 04/17/20 07:54 Breathing Home Meds: Home Meds Levothyroxine 275 mcg PO ACBREAKFAST 12/03/17 [History] traMADol HCl [Tramadol HCl] 50 - 100 mg PO Q6H PRN 12/03/17 [History] Omeprazole 40 mg PO ASDIRECTED 07/12/18 [History] Zolpidem Tartrate [Ambien] 5 mg PO BEDTIME PRN 07/12/18 [History] Cyclobenzaprine [Flexeril] 1 tab PO Q4HR PRN 12/19/18 [History] Albuterol/Ipratropium [DuoNeb 3.0-0.5 MG/3 ML] 3 ml .XX Q4HR PRN 30 Days #30 neb 12/20/18 [Rx] Losartan Potassium 50 mg PO DAILY 04/17/20 [History] Magnesium Citrate [Citrate of Magnesia] 296 ml PO ONETIME 1 Days #1 bottle 04/17/20 [Rx] Past Medical History HEENT History: Reports: Allergic Rhinitis, Other (See Below) Other HEENT History: wears glasses/contacts, has upper denture Cardiovascular History: Reports: High Cholesterol, Hypertension, OR Other Cardiovascular History: h/o HTN and high cholesterol- ok since loosing 100 lb. after gastric sleeve surgery. she had an OR 1 year ago- no heart damage, no medications, no stent, no follow up. Respiratory History: Reports: Sleep Apnea Other Respiratory History: uses CPAP, denies COPD but uses inhalers when SOB Gastrointestinal History: Reports: Chronic Constipation, GERD Genitourinary History: Reports: Renal Calculus CHRONIC CARE NURSE History: Reports: Other (See Below) Other CHRONIC CARE NURSE History: abd hyst Musculoskeletal History: Reports: Arthritis, Back Pain, Chronic Other Musculoskeletal History: hx of degenerative disc disease, hx of 6 fx ve rtebrate Neurological History: Reports: Migraines, Neuropathy, Diabetic Psychiatric History: Reports: Anxiety, Depression Endocrine/Metabolic History: Reports: Diabetes, Type II, Hypothyroidism Other Endocrine/Metabolic History: has not required medication for diabetes siince weight loss Oncologic (Cancer) History: Reports: Breast Other Oncologic History: skin cancer removed from face- unknown type Dermatologic History: Reports: None - Infectious Disease History Infectious Disease History: Reports: Chicken Pox - Past Surgical History Head Surgeries/Procedures: Reports: None HEENT Surgical History: Reports: Tonsillectomy GI Surgical History: Reports: Appendectomy, Bariatric Procedure, Chol ecystectomy, Other (See Below) Other GI Surgeries/Procedures: hernia repair x6 Female Surgical History: Reports: Breast Biopsy, Hysterectomy, Litho tripsy/ESWL, Tubal Ligation Endocrine Surgical History: Reports: Thyroidectomy Neurological Surgical History: Reports: Discectomy, Lumbar Spine Other Neurological Surgeries/Procedures: Microdiscectomy L4-5 Musculoskeletal Surgical History: Reports: Carpal Tunnel, Other (See Below) Other Musculoskeletal Surgeries/Procedures:: ulnar nerve surgery Oncologic Surgical History: Reports: Lumpectomy Dermatological Surgical History: Reports: Skin Biopsy Social & Family History - Family History Family Medical History: No Pertinent Family History - Tobacco Use Tobacco Use Status *Q: Current Every Day Tobacco User Years of Tobacco use: 40 Packs/Tins Daily: 1 - Caffeine Use Caffeine Use: Reports: Coffee, Tea - Recreational Drug Use Recreational Drug Use: No - Living Situation & Occupation Living situation: Reports: Occupation: Employed ED ROS GENERAL - Review of Systems Review Of Systems: See Below Constitutional: Reports: No Symptoms HEENT: Reports: No Symptoms Respiratory: Reports: No Symptoms Cardiovascular: Reports: No Symptoms Endocrine: Reports: No Symptoms GI/Abdominal: Reports: Abdominal Pain, Constipation : Reports: No Symptoms Musculoskeletal: Reports: No Symptoms Skin: Reports: No Symptoms Neurological: Reports: No Symptoms Psychiatric: Reports: No Symptoms Hematologic/Lymphatic: Reports: No Symptoms Immunologic: Reports: No Symptoms ED EXAM, GENERAL - Physical Exam Exam: See Below Exam Limited By: No Limitations General Appearance: Alert, WD/WN Respiratory/Chest: No Respiratory Distress, Lungs Clear, Normal Breath Sounds Cardiovascular: Regular Rate, Rhythm GI/Abdominal: Normal Bowel Sounds, Soft, Non-Tender Extremities: Normal Range of Motion Neurological: Alert, Oriented Course - Vital Signs Last Recorded V/S: Last Vital Signs Temp 97.1 F 04/17/20 07:54 Pulse 88 04/17/20 07:54 Resp 16 04/17/20 07:54 BP 139/94 H 04/17/20 07:54 Pulse Ox 98 04/17/20 07:54 - Orders/Labs/Meds Orders: Active Orders 24 hr Category Date Time Status Enema [RC] ASDIRECTED Care 04/17/20 09:25 Active Labs: Laboratory Tests 04/17/20 04/17/20 Range/Units 08:01 08:01 WBC 8.20 (4.0-11.0) K/uL RBC 5.04 (4.30-5.90) M/uL Hgb 14.9 (12.0-16.0) g/dL Hct 45.6 (36.0-46.0) % MCV 90.5 (80.0-98.0) fL MCH 29.6 (27.0-32.0) pg MCHC 32.7 (31.0-37.0) g/dL RDW Std Deviation 47.4 (28.0-62.0) fl RDW Coeff of Sheryl 14 (11.0-15.0) % Plt Count 271 (150-400) K/uL MPV 10.00 (7.40-12.00) fL Neut % (Auto) 56.1 (48.0-80.0) % Lymph % (Auto) 35.9 (16.0-40.0) % [place] % (Auto) 5.6 (0.0-15.0) % Eos % (Auto) 2.0 (0.0-7.0) % Baso % (Auto) 0.4 (0.0-1.5) % Neut # (Auto) 4.6 (1.4-5.7) K/uL Lymph # (Auto) 2.9 H (0.6-2.4) K/uL [place] # (Auto) 0.5 (0.0-0.8) K/uL Eos # (Auto) 0.2 (0.0-0.7) K/uL Baso # (Auto) 0.0 (0.0-0.1) K/uL Nucleated RBC % 0.0 /100WBC Nucleated RBCs # 0 K/uL Sodium 143 (136-145) mmol/L Potassium 3.9 (3.5-5.1) mmol/L Chloride 104 (98-107) mmol/L Carbon Dioxide 29.5 (21.0-32.0) mmol/L BUN 13 (7.0-18.0) mg/dL Creatinine 0.9 (0.6-1.0) mg/dL Est Cr Clr Drug Dosing 65.80 mL/min Estimated GFR (MDRD) > 60.0 ml/min Glucose 90 (74-106) mg/dL Calcium 9.5 (8.5-10.1) mg/dL Phosphorus 3.9 (2.6-4.7) mg/dL Magnesium 2.3 (1.8-2.4) mg/dL Total Bilirubin 0.3 (0.2-1.0) mg/dL AST 17 (15-37) IU/L ALT 19 (14-63) IU/L Alkaline Phosphatase 134 H (46-116) U/L Total Protein 8.5 H (6.4-8.2) g/dL Albumin 3.8 (3.4-5.0) g/dL Globulin 4.7 H (2.6-4.0) g/dL Albumin/Globulin Ratio 0.8 L (0.9-1.6) Lipase 117 (73-393) U/L Meds: Medications Discontinued Medications Generic Name Dose Route Start Last Admin Trade Name Freq PRN Reason Stop Dose Admin Sodium Chloride 1,000 mls @ 999 mls/hr 04/17/20 08:12 04/17/20 08:15 Normal Saline IV 04/17/20 09:12 999 mls/hr .BOLUS ONE Administration Iopamidol 100 ml 04/17/20 09:03 04/17/20 09:06 Isovue Multipack-370 (76%) IVPUSH 04/17/20 09:04 100 ml ONETIME STA Administration Ondansetron HCl 4 mg 04/17/20 09:09 04/17/20 09:12 Zofran IVPUSH 04/17/20 09:10 4 mg ONETIME ONE Administration - Re-Assessments/Exams Free Text/Narrative Re-Assessment/Exam: 04/17/20 11:[address] scan showed no obstruction. Patient was given 2 enemas with only small amount of stool. We also tried a disimpaction without any stool retrieval there is no stool in the rectal vault. Patient will be sent home with another laxative and can follow-up with GI she has appointment scheduled for May 15. Departure - Departure Time of Disposition: 11:31 Disposition: Home, Self-Care 01 Condition: Good Clinical Impression: Constipation - Discharge Information *PRESCRIPTION DRUG MONITORING PROGRAM REVIEWED*: Not Applicable *COPY OF PRESCRIPTION DRUG MONITORING REPORT IN PATIENT FREDDIE: Not Applicable Instructions: Chronic Constipation Referrals: Jagdish Jacinto MD [Primary Care Provider] - Forms: ED Department Discharge Additional Instructions: The following information is given to patients seen in the emergency department who are being discharged to home. This information is to outline your options for follow-up care. We provide all patients seen in our emergency department with a follow-up referral. The need for follow-up, as well as the timing and circumstances, are variable depending upon the specifics of your emergency department visit. If you don't have a primary care physician on staff, we will provide you with a referral. We always advise you to contact your personal physician following an emergency department visit to inform them of the circumstance of the visit and for follow-up with them and/or the need for any referrals to a consulting specialist. The emergency department will also refer you to a specialist when appropriate. This referral assures that you have the opportunity for follow-up care with a specialist. All of these measure are taken in an effort to provide you with optimal care, which includes your follow-up. Under all circumstances we always encourage you to contact your private physician who remains a resource for coordinating your care. When calling for follow-up care, please make the office aware that this follow-up is from your recent emergency room visit. If for any reason you are refused follow-up, please contact the [facility] Emergency Department at and asked to speak to the emergency department charge nurse. Please follow up with your primary care physician. If you do not have a primary care physician, see below: [facility] [address] [place] [id number] My [facility] [address] [place] [address] Continue to follow-up with your schedule gastroenterology appointment in May. If you have any increased pain or other concerns please return to the ED. Sepsis Event Note (ED) - Evaluation Sepsis Screening Result: No Definite Risk - Focused Exam Vital Signs: Vital Signs Temp Pulse Resp BP Pulse Ox 04/17/20 07:54 97.1 F 88 16 139/94 H 98 - My Orders Last 24 Hours: My Active Orders 04/17/20 09:25 Enema [RC] ASDIRECTED - Assessment/Plan Last 24 Hours: My Active Orders 04/17/20 09:25 Enema [RC] ASDIRECTED Assessment:: Patient is a 50-year-old female who presents today for constipation. Patient is not a bowel movement 32 days. To the patient have a number of abdominal surgeries in the past will obtain a CAT scan to rule out any small bowel obstructions. Patient will be given IV fluids and pain control in the meantime.
[2020-04-17 08:36] LABS: BLOOD UREA NITROGEN,BUN 13 mg/dL (7.0-18.0); CARBON DIOXIDE,CO2 29.5 mmol/L (21.0-32.0); CHLORIDE,CL 104 mmol/L (98-107); GLUCOSE RANDOM 90 mg/dL (74-106); LIPASE 117 U/L (73-393); POTASSIUM,K 3.9 mmol/L (3.5-5.1); SODIUM,NA 143 mmol/L (136-145)
[2020-04-17] MEDS ORDERED: Iopamidol 755 MG/ML 500 ML Multipack Bottle IVPUSH STA (09:03)
[2020-04-17] MEDS ORDERED: Ondansetron 4 MG/2 ML SDV IVPUSH ONE (09:09)
--- NOTE | 2020-04-17 09:22 | CT ---
INDICATION: Abdominal pain. No bowel movement for 32 days COMPARISON: A similar study dated July 12, 2017 TECHNIQUE: CT examination of the abdomen and pelvis was performed following the uneventful intravenous administration of 100 cc of Isovue 370. Thin section axial images were obtained from the lung bases through the pubic symphysis. Oral contrast was not administered. Please note that all CT scans at this facility use dose modulation, iterative reconstruction, and/or weight-based dosing when appropriate to reduce radiation dose to as low as reasonably achievable. FINDINGS: LUNG BASES: The lung bases as visualized appear normal.The heart size is normal at the lung bases. There is a small hiatal hernia and postsurgical changes at the EG junction LIVER/BILIARY SYSTEM:The liver is normal in size and configuration. There is no focal mass and there is no intra- or extra hepatic biliary ductal dilatation.Gallbladder surgically absent ADRENALS: Normal KIDNEYS, URETERS and BLADDER:The kidneys appear normal. No visible mass, calculus or hydronephrosis. The ureters and bladder as visualized appear normal. SPLEEN:Normal appearance. PANCREAS: Appears normal. RETROPERITONEUM and MESENTERY: There is no mass, adenopathy or aortic aneurysm. Atherosclerotic vascular calcifications GASTROINTESTINAL SYSTEM: There is no evidence of diverticulitis, colitis, mechanical obstruction, or appendicitis. The small bowel as visualized appears normal.There is mild fecal retention. Scattered diverticulosis. PELVIS: No mass, adenopathy or free fluid. OSSEOUS STRUCTURES and ABDOMINAL WALL: There have been numerous vertebroplasty procedures. No acute appearing osseous finding. Postsurgical changes of the lower anterior abdominal wall. OTHER: No free fluid or free air. IMPRESSION: 1. Relatively mild fecal retention without evidence of mechanical obstruction. 2. Other incidental nonacute appearing findings as discussed above. Please note that all CT scans at this facility use dose modulation, iterative reconstruction, and/or weight-based dosing when appropriate to reduce radiation dose to as low as reasonably achievable. Dictated by Ronald Tovar MD @ Apr 17 2020 9:15AM Signed by Dr. Ronald Tovar @ Apr 17 2020 9:21AM
[2020-04-17 11:41] VITALS: BP 168/99; PULSE 84
== END 2020-04-17 11:44 | disposition home or self-care (01) ==
LOC: MW.ED 07:46
DX: K59.00 Constipation, unspecified (principal); I10 Essential (primary) hypertension; I25.2 Old myocardial infarction; E11.9 Type 2 diabetes mellitus without complications; E03.9 Hypothyroidism, unspecified; F17.210 Nicotine dependence, cigarettes, uncomplicated; Z88.1 Allergy status to other antibiotic agents; Z88.5 Allergy status to narcotic agent; Z88.0 Allergy status to penicillin; Z79.899 Other long term (current) drug therapy
CPT/HCPCS: 36415; 74177; 80053; 83690; 83735; 84100; 85025; 96374; 99284; J2405; J7030; Q9967

== ENCOUNTER 2020-10-30 11:55 | Emergency (ER) | payer BC ==
--- NOTE | 2020-10-30 11:57 | PCM.EKG ---
#1 Interpretation EKG Date: 10/30/20 Time: 11:48 Rhythm: NSR Rate (Beats/Min): 87 ST-T: Normal
[2020-10-30] MEDS ORDERED: Sodium Chloride 0.9% 2.5 ML Syringe FLUSH PRN (11:59)
[2020-10-30] MEDS ORDERED: Sodium Chloride 0.9% 10 ML Syringe FLUSH PRN (11:59)
--- NOTE | 2020-10-30 12:05 | EDM.PDOC ---
ED HPI GENERAL MEDICAL PROBLEM - General Chief Complaint: Abdominal Pain Stated Complaint: POST OP PAIN Time Seen by Provider: 10/30/20 12:01 Source of Information: Reports: Patient History Limitations: Reports: No Limitations - History of Present Illness INITIAL COMMENTS - FREE TEXT/NARRATIVE: HISTORY AND PHYSICAL: History of present illness: Patient is a 50-year-old female who is brought to the emergency room by [facility] ambulance from home with concerns of abdominal pain and shortness of breath post surgery. Patient states several weeks ago she was in [place] visiting, she was concerned she was constipated and was seen at the hospital. She was told she had a significant liver infection due to gallstones that were causing blockage. She decided to drive herself back home and was reevaluated at [facility], was ultimately transferred to [facility] for surgery. Patient has had a cholecystectomy in the past but states she has had "gallstone sitting there for years". Patient was admitted to [facility] and had biliary drain placed on 10/27/2020 placed by IR. Also had an ERCP in which a stone was removed by Dr Haywood. She was discharged to home on Cipro PO on 10/29/20. She states she was discharged with pain although did not feel she had this much swelling. She has not taken her pain medications yet today. She called [facility] ambulance for [facility] [employer] because she feels she needs to go back to [place]. Patient thought that the ambulance crew would take her to [place], instead brought her to our emergency room for evaluation. Patient was given 2 mg of Dilaudid in route but states this medication has not helped her pain at all. States the pain and pressure is giving her the sensation that she is unable to catch her breath. Patient denies any fever, chills, headache, change in vision, syncope or near syncope. Denies any chest pain, back pain, hemoptysis or cough. Denies any nausea, vomiting, diarrhea, constipation or dysuria. Has not noted any blood in urine or stool. Past medical history of appendectomy, bariatric surgeries, cholecystectomy and multiple hernia repairs. PCP: Dr Jacinto at [facility], reports she has a follow up appointment tomorrow afternoon. Review of systems: As per history of present illness and below otherwise all systems reviewed and negative. Past medical history: As per history of present illness and as reviewed below otherwise noncontributory. Surgical history: As per history of present illness and as reviewed below otherwise noncontributory. Social history: See social history for further information Family history: As per history of present illness and as reviewed below otherwise noncontributory. Physical exam: General: Well developed and well nourished 50-year-old female. Alert and orientated x 3. Nontoxic in appearance and in no acute distress. Vital signs are stable and have been reviewed by me. Nursing notes were reviewed. HEENT: Atraumatic, normocephalic, pupils equal and reactive bilaterally, negative for conjunctival pallor or scleral icterus, mucous membranes moist, throat clear, neck supple, nontender, trachea midline. No drooling or trismus noted. No meningeal signs. No hot potato voice noted. Lungs: Clear to auscultation bilaterally. No wheezes, rales, or rhonchi. Chest nontender. Normal work of breathing, no accessory muscles used. Heart: S1S2, regular rate and rhythm without overt murmur, gallops, or rubs. No JVD. No peripheral edema Abdomen: Distended, tenderness throughout, mild ascites noted throughout abdomen. Hypoactive bowel sounds. Negative for masses or costovertebral tenderness. Skin: Large inverted "T" incision noted to the low/mid abdomen, healed well. She does have a puncture site noted to the upper right quadrant without any surrounding erythema or fluctuance. Remaining skin is intact, warm, dry. No lesions or rashes noted. Hematologic: No petechiae or purpra. Mucosa appropriate color and normal nail bed color and refill. Extremities: Atraumatic, moves all extremities per self without difficulty or deficits, negative for cords or calf pain. Neurovascular unremarkable. Neuro: Awake, alert, oriented. Cranial nerves II through XII unremarkable. Cerebellum unremarkable. Motor and sensory unremarkable throughout. Exam nonfocal. Psychiatric: Mood and affect are appropriate. Normal thought process. Answering questions appropriately. Notes: *This patient was seen and evaluated during the 2019 SARS-CoV-2 novel coronavirus pandemic period. Community viral transmission is ongoing at time of this encounter and the emergency department is operating under pandemic response procedures. Patient's white count is 11.48. Lipase is elevated at 593. Total bili is elevated at 3.1, she did just have surgery. Normal lactate at this time. BNP 98j. AST/ALT 20/61.Chest x-ray shows hyperinflation and chronic interstitial changes with mildly increased interstitial markings likely representing pulmonary edema. CT results are pending. CT shows interval cholecystectomy with demonstration of choledocholithiasis with a 7.6 millimeter obstructing calculus in the distal common bile duct just at the ampulla of Vater with mild periportal edema and enhancement of the common bile duct. There is mild ascites fluid within the 4 quadrants. Developing cholangitis changes are not excluded. Small bibasilar pleural effusions with adjacent compressive atelectasis versus infiltrates. 1535: Dr Haywood, GI surgeon at [facility], was consulted. He was the surgeon who performed the surgery on patient a few days prior, he is aware of this case. We reviewed her ER visit/labs/imaging from today. He is agreeable with this patient be transferred back to their facility for further management. I spoke with Dr. Waldron, hospitalist on-call, he is aware of this patient and agreeable to admitting to their facility for further care and management. We will give patient Cipro and Flagyl IV. I have talked with the patient about carolina alvarez's findings, in addition to providing specific details for plan of care. Reassessment at the time of disposition demonstrates that the patient is in no acute distress. Patient will go to [facility] via ground EMS. Patient's vital signs remained stable, will continue to monitor. Diagnostics: CBC, CMP, Lactate, BC x 2, UA, Abd/Pelvic CT, COVID Therapeutics: IV fluid at 100 mL/h, Cipro IV, Flagyl, Dilaudid Impression: Choledocholithiasis Ascites Plan: Transfer to [facility] via ground EMS Definitive disposition and diagnosis as appropriate pending reevaluation and review of above. upper and lower abdomen Pain Score (Numeric/FACES): 10 - Related Data Allergies Allergy/AdvReac Type Severity Reaction Status Date / Time erythromycin base Allergy Vomiting Verified 10/30/20 13:29 morphine Allergy Other Verified 10/30/20 13:29 Penicillins Allergy Difficulty Verified 10/30/20 13:29 Breathing Home Meds: Home Meds Levothyroxine 250 mcg PO ACBREAKFAST 12/03/17 [History] Omeprazole 20 mg PO ASDIRECTED 07/12/18 [History] Zolpidem Tartrate [Ambien] 5 mg PO BEDTIME PRN 07/12/18 [History] Cyclobenzaprine [Flexeril] 1 tab PO Q4HR PRN 12/19/18 [History] Albuterol/Ipratropium [DuoNeb 3.0-0.5 MG/3 ML] 3 ml .XX Q4HR PRN 30 Days #30 neb 12/20/18 [Rx] Losartan Potassium 50 mg PO DAILY 04/17/20 [History] Ciprofloxacin HCl [Cipro] 500 mg PO BID 10/30/20 [History] DULoxetine HCl [Cymbalta] 60 mg PO DAILY 10/30/20 [History] Fluconazole [Diflucan] 100 mg PO DAILY 10/30/20 [History] Gabapentin [Neurontin] 300 mg PO BEDTIME 10/30/20 [History] Hydrocodone/Acetaminophen [HYDROcodone-Acetaminophen 5-325 MG] 1 each PO Q4HR 10/30/20 [History] Past Medical History HEENT History: Reports: Allergic Rhinitis, Other (See Below) Other HEENT History: wears glasses/contacts, has upper denture Cardiovascular History: Reports: High Cholesterol, Hypertension, VT Other Cardiovascular History: h/o HTN and high cholesterol- ok since loosing 100 lb. after gastric sleeve surgery. she had an VT 1 year ago- no heart damage, no medications, no stent, no follow up. 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: Reports: Other (See Below) Other SLATER APPRENTICE History: abd hyst Musculoskeletal History: Reports: Arthritis, Back Pain, Chronic Other Musculoskeletal History: hx of degenerative disc disease, hx of 6 fx vertebrate Neurological History: Reports: Migraines, Neuropathy, Diabetic Psychiatric History: Reports: Anxiety, Depression Endocrine/Metabolic History: Reports: Diabetes, Type II, Hypothyroidism Other Endocrine/Metabolic History: has not required medication for diabetes siince weight loss Oncologic (Cancer) History: Reports: Breast Other Oncologic History: skin cancer removed from face- unknown type Dermatologic History: Reports: None - Infectious Disease History Infectious Disease History: Reports: Chicken Pox - Past Surgical History Head Surgeries/Procedures: Reports: None HEENT Surgical History: Reports: Tonsillectomy GI Surgical History: Reports: Appendectomy, Bariatric Procedure, Cholecystectomy, Other (See Below) Other GI Surgeries/Procedures: hernia repair x6 Female Surgical History: Reports: Breast Biopsy, Hysterectomy, Lithotripsy/ESWL, Tubal Ligation Endocrine Surgical History: Reports: Thyroidectomy Neurological Surgical History: Reports: Discectomy, Lumbar Spine Other Neurological Surgeries/Procedures: Microdiscectomy L4-5 Musculoskeletal Surgical History: Reports: Carpal Tunnel, Other (See Below) Other Musculoskeletal Surgeries/Procedures:: ulnar nerve surgery Oncologic Surgical History: Reports: Lumpectomy Dermatological Surgical History: Reports: Skin Biopsy Social & Family History - Family History Family Medical History: No Pertinent Family History - Caffeine Use Caffeine Use: Reports: Coffee, Tea - Living Situation & Occupation Living situation: Reports: Occupation: Employed ED ROS GENERAL - Review of Systems Review Of Systems: Comprehensive ROS is negative, except as noted in HPI. ED EXAM, GI/ABD - Physical Exam Exam: See Below (See dictation) Course - Vital Signs Last Recorded V/S: Last Vital Signs Temp 98.2 F 10/30/20 12:00 Pulse 73 10/30/20 16:47 Resp 20 10/30/20 16:47 BP 151/79 H 10/30/20 16:47 Pulse Ox 98 10/30/20 16:47 - Orders/Labs/Meds Orders: Active Orders 24 hr Category Date Time Status EKG Documentation Completion [RC] STAT Care 10/30/20 12:07 Active CULTURE BLOOD [BC] Stat Lab 10/30/20 12:36 Received CULTURE BLOOD [BC] Stat Lab 10/30/20 12:40 Received Ciprofloxacin in D5W [Cipro in D5W 400 MG/200 ML] 400 Med 10/30/20 15:30 Active mg Premix Bag 1 bag IV Q12H Sodium Chloride 0.9% [Normal Saline] 1,000 ml Med 10/30/20 14:47 Active IV STAT Sodium Chloride 0.9% [Saline Flush] Med 10/30/20 11:59 Active 10 ml FLUSH ASDIRECTED PRN Sodium Chloride 0.9% [Saline Flush] Med 10/30/20 11:59 Active 2.5 ml FLUSH ASDIRECTED PRN Blood Culture x2 Reflex Set [OM.PC] Stat Oth 10/30/20 11:59 Ordered Saline Lock Insert [OM.PC] Stat Oth 10/30/20 11:59 Ordered Medication Orders Sodium Chloride (Normal Saline) 1,000 mls @ 100 mls/hr IV STAT ONE Stop: 10/31/20 00:46 Last Admin: 10/30/20 14:53 Dose: 100 mls/hr Documented by: STEPHANIE Ciprofloxacin/Dextrose 400 mg/ (Premix) 200 mls @ 200 mls/hr IV Q12H SABA Last Admin: 10/30/20 16:04 Dose: 200 mls/hr Documented by: STEPHANIE Sodium Chloride (Sodium Chloride 0.9% 10 Ml Syringe) 10 ml FLUSH ASDIRECTED PRN PRN Reason: Keep Vein Open Last Admin: 10/30/20 12:35 Dose: 10 ml Documented by: AMALIA Sodium Chloride (Sodium Chloride 0.9% 2.5 Ml Syringe) 2.5 ml FLUSH ASDIRECTED PRN PRN Reason: Keep Vein Open Last Admin: 10/30/20 12:35 Dose: 2.5 ml Documented by: AMALIA Labs: Laboratory Tests 10/30/20 10/30/20 10/30/20 Range/Units 12:18 12:18 12:40 WBC 11.48 H (4.0-11.0) K/uL RBC 4.43 (4.30-5.90) M/uL Hgb 12.5 (12.0-16.0) g/dL Hct 36.5 (36.0-46.0) % MCV 82.4 (80.0-98.0) fL MCH 28.2 (27.0-32.0) pg MCHC 34.2 (31.0-37.0) g/dL RDW Std Deviation 47.1 (28.0-62.0) fl RDW Coeff of Sheryl 16 H (11.0-15.0) % Plt Count 171 (150-400) K/uL MPV 9.80 (7.40-12.00) fL Neut % (Auto) 70.6 (48.0-80.0) % Lymph % (Auto) 18.5 (16.0-40.0) % [place] % (Auto) 10.1 (0.0-15.0) % Eos % (Auto) 0.6 (0.0-7.0) % Baso % (Auto) 0.2 (0.0-1.5) % Neut # (Auto) 8.1 H (1.4-5.7) K/uL Lymph # (Auto) 2.1 (0.6-2.4) K/uL [place] # (Auto) 1.2 H (0.0-0.8) K/uL Eos # (Auto) 0.1 (0.0-0.7) K/uL Baso # (Auto) 0.0 (0.0-0.1) K/uL Nucleated RBC % 0.0 /100WBC Nucleated RBCs # 0 K/uL Sodium 143 (136-145) mmol/L Potassium 3.3 L (3.5-5.1) mmol/L Chloride 105 (98-107) mmol/L Carbon Dioxide 28.6 (21.0-32.0) mmol/L BUN 6 L (7.0-18.0) mg/dL Creatinine 0.5 L (0.6-1.0) mg/dL Est Cr Clr Drug Dosing TNP Estimated GFR (MDRD) > 60.0 ml/min Glucose 83 (74-106) mg/dL Lactic Acid 0.5 (0.4-2.0) mmol/L Calcium 7.8 L (8.5-10.1) mg/dL Total Bilirubin 3.1 H (0.2-1.0) mg/dL AST 20 (15-37) IU/L ALT 61 (14-63) IU/L Alkaline Phosphatase 170 H (46-116) U/L B-Natriuretic Peptide (<100) PG/ML Total Protein 6.1 L (6.4-8.2) g/dL Albumin 2.4 L (3.4-5.0) g/dL Globulin 3.7 (2.6-4.0) g/dL Albumin/Globulin Ratio 0.7 L (0.9-1.6) Lipase 593 H (73-393) U/L Urine Color Urine Appearance Urine pH (5.0-8.0) Ur Specific [place] (1.001-1.035) Urine Protein (NEGATIVE) mg/dL Urine Glucose (UA) (NEGATIVE) mg/dL Urine Ketones (NEGATIVE) mg/dL Urine Occult Blood (NEGATIVE) Urine Nitrite (NEGATIVE) Urine Bilirubin (NEGATIVE) Urine Urobilinogen (<2.0) EU/dL Ur Leukocyte Esterase (NEGATIVE) SARS-CoV-2 RNA (ISABEL) (NEGATIVE) 10/30/20 10/30/20 10/30/20 Range/Units 12:40 12:55 13:15 WBC (4.0-11.0) K/uL RBC (4.30-5.90) M/uL Hgb (12.0-16.0) g/dL Hct (36.0-46.0) % MCV (80.0-98.0) fL MCH (27.0-32.0) pg MCHC (31.0-37.0) g/dL RDW Std Deviation (28.0-62.0) fl RDW Coeff of Sheryl (11.0-15.0) % Plt Count (150-400) K/uL MPV (7.40-12.00) fL Neut % (Auto) (48.0-80.0) % Lymph % (Auto) (16.0-40.0) % [place] % (Auto) (0.0-15.0) % Eos % (Auto) (0.0-7.0) % Baso % (Auto) (0.0-1.5) % Neut # (Auto) (1.4-5.7) K/uL Lymph # (Auto) (0.6-2.4) K/uL [place] # (Auto) (0.0-0.8) K/uL Eos # (Auto) (0.0-0.7) K/uL Baso # (Auto) (0.0-0.1) K/uL Nucleated RBC % /100WBC Nucleated RBCs # K/uL Sodium (136-145) mmol/L Potassium (3.5-5.1) mmol/L Chloride (98-107) mmol/L Carbon Dioxide (21.0-32.0) mmol/L BUN (7.0-18.0) mg/dL Creatinine (0.6-1.0) mg/dL Est Cr Clr Drug Dosing Estimated GFR (MDRD) ml/min Glucose (74-106) mg/dL Lactic Acid (0.4-2.0) mmol/L Calcium (8.5-10.1) mg/dL Total Bilirubin (0.2-1.0) mg/dL AST (15-37) IU/L ALT (14-63) IU/L Alkaline Phosphatase (46-116) U/L B-Natriuretic Peptide 98 (<100) PG/ML Total Protein (6.4-8.2) g/dL Albumin (3.4-5.0) g/dL Globulin (2.6-4.0) g/dL Albumin/Globulin Ratio (0.9-1.6) Lipase (73-393) U/L Urine Color YELLOW Urine Appearance CLEAR Urine pH 7.5 (5.0-8.0) Ur Specific [place] 1.020 (1.001-1.035) Urine Protein NEGATIVE (NEGATIVE) mg/dL Urine Glucose (UA) NEGATIVE (NEGATIVE) mg/dL Urine Ketones NEGATIVE (NEGATIVE) mg/dL Urine Occult Blood NEGATIVE (NEGATIVE) Urine Nitrite NEGATIVE (NEGATIVE) Urine Bilirubin NEGATIVE (NEGATIVE) Urine Urobilinogen 0.2 (<2.0) EU/dL Ur Leukocyte Esterase NEGATIVE (NEGATIVE) SARS-CoV-2 RNA (ISABEL) NEGATIVE (NEGATIVE) Meds: Medications Generic Name Dose Route Start Last Admin Trade Name Freq PRN Reason Stop Dose Admin Sodium Chloride 1,000 mls @ 100 mls/hr 10/30/20 14:47 10/30/20 14:53 Normal Saline IV 10/31/20 00:46 100 mls/hr STAT ONE Administration Ciprofloxacin/Dextrose 400 mg/ 200 mls @ 200 mls/hr 10/30/20 15:30 10/30/20 16:04 Premix IV 200 mls/hr Q12H SABA Administration Sodium Chloride 10 ml 10/30/20 11:59 10/30/20 12:35 Sodium Chloride 0.9% 10 Ml Syringe FLUSH 10 ml ASDIRECTED PRN Administration Keep Vein Open Sodium Chloride 2.5 ml 10/30/20 11:59 10/30/20 12:35 Sodium Chloride 0.9% 2.5 Ml Syringe FLUSH 2.5 ml ASDIRECTED PRN Administration Keep Vein Open Discontinued Medications Generic Name Dose Route Start Last Admin Trade Name Freq PRN Reason Stop Dose Admin Hydromorphone HCl 1 mg 10/30/20 14:46 10/30/20 14:54 Hydromorphone 1 Mg/Ml Syringe IVPUSH 10/30/20 14:47 1 mg ONETIME ONE Administration Metronidazole 500 mg/ Premix 100 mls @ 100 mls/hr 10/30/20 16:19 10/30/20 17:22 IV 10/30/20 17:18 100 mls/hr ONETIME ONE Administration Departure - Departure Time of Disposition: 17:35 Disposition: DC/Tfer to [facility] 02 Clinical Impression: Choledocholithiasis - Discharge Information Referrals: Jagdish Jacinto MD [Primary Care Provider] - Forms: ED Department Discharge Sepsis Event Note (ED) - Focused Exam Vital Signs: Vital Signs Temp Pulse Resp BP Pulse Ox 10/30/20 16:47 73 20 151/79 H 98 10/30/20 16:05 80 20 175/97 H 98 10/30/20 14:59 77 18 135/78 98 10/30/20 14:15 80 18 128/71 98 10/30/20 13:37 89 18 134/85 98 10/30/20 12:50 89 18 151/64 H 98 10/30/20 12:00 98.2 F 91 18 163/98 H 97 - My Orders Last 24 Hours: My Active Orders 10/30/20 11:59 Sodium Chloride 0.9% [Saline Flush] 10 ml FLUSH ASDIRECTED PRN Sodium Chloride 0.9% [Saline Flush] 2.5 ml FLUSH ASDIRECTED PRN Blood Culture x2 Reflex Set [OM.PC] Stat Saline Lock Insert [OM.PC] Stat 10/30/20 12:07 EKG Documentation Completion [RC] STAT 10/30/20 12:36 CULTURE BLOOD [BC] Stat 10/30/20 12:40 CULTURE BLOOD [BC] Stat 10/30/20 14:47 Sodium Chloride 0.9% [Normal Saline] 1,000 ml IV STAT 10/30/20 15:30 Ciprofloxacin in D5W [Cipro in D5W 400 MG/200 ML] 400 mg Premix Bag 1 bag IV Q12H - Assessment/Plan Last 24 Hours: My Active Orders 10/30/20 11:59 Sodium Chloride 0.9% [Saline Flush] 10 ml FLUSH ASDIRECTED PRN Sodium Chloride 0.9% [Saline Flush] 2.5 ml FLUSH ASDIRECTED PRN Blood Culture x2 Reflex Set [OM.PC] Stat Saline Lock Insert [OM.PC] Stat 10/30/20 12:07 EKG Documentation Completion [RC] STAT 10/30/20 12:36 CULTURE BLOOD [BC] Stat 10/30/20 12:40 CULTURE BLOOD [BC] Stat 10/30/20 14:47 Sodium Chloride 0.9% [Normal Saline] 1,000 ml IV STAT 10/30/20 15:30 Ciprofloxacin in D5W [Cipro in D5W 400 MG/200 ML] 400 mg Premix Bag 1 bag IV Q12H
[2020-10-30 13:02] LABS: BLOOD UREA NITROGEN,BUN 6 mg/dL (7.0-18.0); CARBON DIOXIDE,CO2 28.6 mmol/L (21.0-32.0); CHLORIDE,CL 105 mmol/L (98-107); GLUCOSE RANDOM 83 mg/dL (74-106); LIPASE 593 U/L (73-393); POTASSIUM,K 3.3 mmol/L (3.5-5.1); SODIUM,NA 143 mmol/L (136-145)
--- NOTE | 2020-10-30 13:57 | CR ---
Indication: Pain and shortness of breath Comparison: Two-view chest December 19, 2018 Technique: Single AP view chest Findings: There is hyperinflation and chronic interstitial change. There are mildly increased interstitial markings likely representing mild pulmonary edema. There is no pneumothorax or pleural effusion. The cardiac silhouette is mildly prominent. The bony thorax is grossly intact. Impression: Hyperinflation and chronic interstitial changes with mildly increased interstitial markings likely representing pulmonary edema. Dictated by Antonio Wu MD @ 10/30/2020 1:54:[address] Antonio Wu @ Oct 30 2020 1:54PM
[2020-10-30] MEDS ORDERED: HYDROmorphone 1 MG/ML Syringe IVPUSH ONE ×2 (14:46→18:06)
[2020-10-30] MEDS ORDERED: Sodium Chloride 0.9% 1,000 ML IV ONE (14:47)
--- NOTE | 2020-10-30 15:29 | CT ---
Indication: Increased abdominal fluids, swelling, pain Technique: Volumetric multidetector CT images of the abdomen and pelvis were obtained after the administration of intravenous contrast. 100 cc Isovue 370 low osmolar intravenous contrast Comparison: CT abdomen and pelvis April 17, 2020 Findings: There are bibasilar pleural effusions with adjacent compressive atelectasis versus infiltrates. There is mild periportal edema appreciated. The liver demonstrates no definite focal abnormality. The portal vein is patent. There is prior cholecystectomy with demonstration of choledocholithiasis with an obstructing calculus seen just at the ampulla of Vater on series 201, image 76. There is mild common biliary ductal prominence. The spleen is normal in enhancement and size. Postoperative changes of the stomach status post likely sleeve gastrectomy are appreciated. The pancreas is normal in enhancement without significant atrophy. The adrenal glands are unremarkable. Minimal cystic changes are seen within the right kidney. The kidneys demonstrate preserved corticomedullary differentiation without evidence of obstructive uropathy. There is a moderate to severe amount of stool seen throughout the colon with minimal distal colonic diverticulosis without evidence of diverticulitis. The appendix is likely surgically absent. There is no significant mesenteric, retroperitoneal, or pelvic sidewall lymph nodes. The aorta is nonaneurysmal. There is no significant atherosclerotic disease appreciated. There is prior hysterectomy, otherwise the pelvic viscera are grossly within normal limits. There is mild to moderate fluid seen within the 4 quadrants which may represent developing ascites fluid with mild body wall edema and postoperative changes of the low anterior abdomen. There is postoperative change of the ventral abdomen status post hernia repair similar to previous exam. Kyphoplasty changes of the lumbar vertebral bodies from L2 through L5 are appreciated. There is no evidence of acute osseous abnormality. Impression: Interval cholecystectomy with demonstration of choledocholithiasis with a 7.6 millimeter obstructing calculus in the distal common bile duct just at the ampulla of Vater with mild periportal edema and enhancement of the common bile duct. There is mild ascites fluid within the 4 quadrants. Developing cholangitis changes are not excluded. Correlate with history of serum liver function tests. Small bibasilar pleural effusions with adjacent compressive atelectasis versus infiltrates. Stable postoperative changes status post ventral hernia repair. Kyphoplasty changes of the lumbar spine are again seen. Findings discussed with Dr. Garcia at 3:25 p.m. October 30, [address] all CT scans at this facility use dose modulation, iterative reconstruction, and/or weight-based dosing when appropriate to reduce radiation dose to as low as reasonably achievable. Dictated by Antonio Wu MD @ 10/30/2020 3:27:[address] Antonio Wu @ Oct 30 2020 3:27PM
[2020-10-30] MEDS ORDERED: Ciprofloxacin in D5W 400 MG in Premix Bag 1 BAG IV SCH ×2 (15:30)
[2020-10-30] MEDS ORDERED: metroNIDAZOLE/Normal Saline 500 MG in Premix Bag 1 BAG IV ONE (16:19)
[2020-10-30 17:59] VITALS: BP 137/81; PULSE 87
== END 2020-10-30 18:21 ==
LOC: MW.ED 11:55
DX: K80.50 Calculus of bile duct without cholangitis or cholecystitis without obstruction (principal); E78.00 Pure hypercholesterolemia, unspecified; I10 Essential (primary) hypertension; I25.2 Old myocardial infarction; K21.9 Gastro-esophageal reflux disease without esophagitis; E11.9 Type 2 diabetes mellitus without complications; E03.9 Hypothyroidism, unspecified; J44.9 Chronic obstructive pulmonary disease, unspecified; Z88.0 Allergy status to penicillin; Z88.1 Allergy status to other antibiotic agents; Z79.899 Other long term (current) drug therapy; Z20.822 Contact with and (suspected) exposure to COVID-19
CPT/HCPCS: 36415; 71045; 74177; 80053; 81003; 83605; 83690; 83880; 85025; 87040; 87635; 93005; 96365; 96367; 96375; 96376; 99285; J0744; J1170; J3490; J7030; U0002